=== PATIENT | male | born 1940 | race Caucasian/White ===

== ENCOUNTER 2016-11-08 06:16 | Observation (INO) | payer MEDICARE ==
--- NOTE | 2016-11-05 13:21 | HP ---
CC: Dr. Varela HISTORY AND PHYSICAL: DATE OF PLANNED ADMISSION/SURGERY: 11/08/16 HISTORY OF PRESENT ILLNESS: Mr. Rangel is a 75-year-old white male, who is admitted with prostate enlargement and bladder outlet obstruction for transurethral resection of the prostate. I have been following Mr. Rangel since 2004 because of progressive symptoms of bladder outlet obstruction. He could not tolerate alpha blockers because of headaches. He has been on finasteride since 2008. The patient has been having increasing obstructive voiding symptoms with nocturia about 3 times, frequency about every 2 hours with hesitancy, slow stream, intermittency, and having to strain to void. He felt his symptoms have been becoming worse and more bothersome and wanted to proceed with TURP. In preparation for the procedure, the patient had a cystoscopy, which showed a large obstructing prostate, diffuse bladder trabeculations, but no suspicious lesion seen. He then had urodynamic studies, which showed normal bladder capacity and high voiding detrusor pressure of 90 cm of water consistent with bladder outlet obstruction and good detrusor function. His uroflowmetry was slow and his post-void residual was 30 mL. In preparation for his procedure, the patient had a cardiac evaluation by Dr. Villasenor, who cleared him for the surgery. I am including a copy of his note. PAST MEDICAL HISTORY AND SYSTEM REVIEW: 1. He gives history of coronary artery disease and had placement of coronary stents about 4 years ago. 2. 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 The surgery was well tolerated. This reestablished good circulation to his lower extremities. He had been maintained on Plavix. He has done well with good surgical result. 3. The patient gives past history of chronic heavy smoking and he stopped several years ago. 4. He has chronic back pain and COPD. MEDICATIONS: He is maintained on the following medications: 1. Aspirin 81 mg daily. 2. Lipitor 40 mg daily. 3. Plavix 75 mg daily and that was discontinued 1 week prior to his admission. 4. Finasteride 5 mg daily. 5. Cozaar 50 mg daily. 6. Metoprolol 100 mg daily. 7. Protonix 40 mg daily. 8. Tramadol 50 mg every 4 to 6 hours as needed for pain. 9. Nitroglycerin sublingual 4 mg as needed for chest pain. ALLERGIES: The patient reports having intolerance to LISINOPRIL, SOMA, and CODEINE. He has also developed headaches to ALPHA BLOCKERS. PHYSICAL EXAMINATION GENERAL: A pleasant white male, who looks his age. VITAL SIGNS: Blood pressure 150/90. LUNGS: Clear. HEART: Regular and rhythmic. No murmurs. ABDOMEN: Soft. No masses, no tenderness, and no CVA tenderness. RECTAL: Done earlier shows an enlarged, but nonsuspicious prostate. IMPRESSION: 1. Prostate enlargement and symptomatic bladder outlet obstruction with progressive symptoms while on finasteride. 2. Coronary artery disease. 3. Peripheral vascular disease. 4. Chronic obstructive pulmonary disease secondary to chronic smoking. 5. Chronic back pain. 6. Gastroesophageal reflux disease. PLAN: Plan is for transurethral resection of the prostate. I had a long discussion with the patient and his regarding the above operation. I indicated that there is no absolute indication to perform the procedure considering the fact that he is not in retention. The patient, however, feels that he is symptomatic enough from his voiding that he wants to proceed with the procedure. The procedure was discussed in detail. Some of the potential complications including hematuria, urinary tract infections, urethral stricture, and a small incidence of urinary incontinence. All their questions were answered. [id number]/[facility] #: [id number] BIRD
[2016-11-08] MEDS ORDERED: cefTRIAXone VIAL(*) 1,000 MG in NS 0.9% 50 ML* 50 ML IVPB ONE (07:00)
[2016-11-08] MEDS ORDERED: cefTRIAXone(*) 2 GM ADDV.VIAL IVPB ONE ×2 (07:07→07:10)
[2016-11-08] MEDS ORDERED: Famotidine IV* 10 MG/ML 2 ML (20 mg) ONE (07:07)
[2016-11-08] MEDS ORDERED: Dexamethasone IV* 4 MG/ML 1 ML (4 MG) ONE (07:07)
[2016-11-08] MEDS ORDERED: Buffered Lidocaine 1% SYR 3ML* 3 ML/SYR SYRINGE ONE (07:07)
[2016-11-08] MEDS ORDERED: fentaNYL* 50 MCG/ML 2 ML VIAL (100 MCG VIAL) ONE ×3 (07:11→08:33)
[2016-11-08] MEDS ORDERED: Midazolam* 1 MG/ML 2 ML VIAL (2 MG) ONE ×2 (07:12→08:03)
[2016-11-08] MEDS ORDERED: Ketorolac INJ* 30 MG/ML 1 ML VIAL ONE (07:15)
[2016-11-08] MEDS ORDERED: Propofol* 10 MG/ML 20 ML BTL IV PUSH ONE (07:15)
[2016-11-08] MEDS ORDERED: Ondansetron INJ* 2 MG/ML VIAL ONE (07:15)
[2016-11-08] MEDS ORDERED: Lidocaine 2% MPF* 2 ML VIAL ONE (07:15)
[2016-11-08] MEDS ORDERED: Ondansetron INJ* 2 MG/ML VIAL IV PRN (07:27)
[2016-11-08] MEDS ORDERED: HYDROmorphone INJ* 1 MG/ML CARPUJECT SYRINGE IV PRN (07:27)
[2016-11-08] MEDS ORDERED: PROCHLORPERAZINE INJ 5 MG/ML 2 ML VIAL IV PRN (07:27)
[2016-11-08] MEDS ORDERED: fentaNYL* 50 MCG/ML 2 ML VIAL (100 MCG VIAL) IV PRN (07:27)
[2016-11-08] MEDS ORDERED: DiMENhydriNATE IV* 50 MG/ML VIAL IV PUSH PRN (07:27)
[2016-11-08] MEDS ORDERED: HYDROmorphone INJ* 1 MG/ML CARPUJECT SYRINGE ONE (08:46)
[2016-11-08] MEDS ORDERED: oxyCODONE/Acetamin 5/325 MG* TAB PO PRN (11:42)
[2016-11-08] MEDS ORDERED: Oxybutynin TAB* 5 MG PO PRN (11:43)
[2016-11-08] MEDS ORDERED: Lidocaine 2% JELLY* 6 ML JELLY TOPICAL PRN (11:44)
[2016-11-08] MEDS ORDERED: Nitroglycerin TAB 0.4 MG* 0.4 MG TAB SL PRN (11:46)
[2016-11-08] MEDS ORDERED: traMADol TAB* 50 MG PO PRN (11:47)
[2016-11-08] MEDS: Omeprazole CAP* 20 MG PO SCH (12:13)
[2016-11-08] MEDS: Losartan TAB* 25 MG PO SCH (12:14)
[2016-11-08] MEDS: Finasteride TAB* 5 MG PO SCH (12:14)
[2016-11-08] MEDS ORDERED: Atorvastatin* 40 MG TAB PO SCH (21:00)
--- NOTE | 2016-11-09 02:01 | OP ---
DATE OF OPERATION: 11/08/16 - ROOM #349 DATE OF : 40 SURGEON: Dr. Fraire. ANESTHESIOLOGIST: Dr. Luis Sepulveda. ANESTHESIA: General. PRE-OP DIAGNOSES: 1. Benign prostatic hyperplasia. 2. Bladder outlet obstruction. POST-OP DIAGNOSES: 1. Benign prostatic hyperplasia. 2. Bladder outlet obstruction. 3. Prostate calculi. OPERATIVE PROCEDURES: 1. Cystoscopy. 2. Transurethral resection of the prostate. INDICATION FOR PROCEDURE: Mr. Rangel is a 75-year-old white male who had long history of bladder outlet obstruction and prostate enlargement and who has been maintained on finasteride. He could not tolerate alpha-blockers because of headaches. Recently, his voiding symptoms have gotten significantly more bothersome. Cystoscopy showed an enlarged obstructing prostate and urodynamic studies showed a high voiding detrusor pressure. Because of the above history and findings and the incomplete response to medical treatment, TURP was advised and accepted. PATHOLOGY: At cystoscopy, the penile and bulbar urethra looked normal. The prostatic urethra measured 3 cm in length and there was significant obstruction by trilobar hyperplasia of the prostate. The examination of the bladder showed normal ureteral orifices. There were no suspicious bladder lesions seen. There was moderate diffuse trabeculations. No bladder calculi and no diverticula were noted. The prostate adenoma was only slightly vascular. There were multiple calculi noted in the posterior prostate adenoma. DESCRIPTION OF PROCEDURE: After successful general anesthesia, the patient was placed in the dorsal lithotomy position and was prepped and draped in the usual manner. Cystoscopy was performed. The bladder was carefully inspected and the above findings were noted. The resectoscope was then introduced inside the bladder after dilating the meatus with [place] dilators. Mannitol-sorbitol solution was used for irrigation and the inflow and outflow were adjusted to avoid over distention of the bladder. The prostate adenoma was resected between 5 o'clock and 7 o'clock. The resection was continued to the level of the verumontanum that allowed the visualization of the bladder neck at the level of the veru. Resection of the left lateral lobe was then performed starting at 5 o' clock and proceeding anteriorly. The right lobe was resected next. The apical tissue and the anterior tissue were resected last. The bleeders were electrocoagulated and controlled. The limits of the resection were the bladder neck proximally, the veru distally, and the capsule circumferentially. The bladder was then thoroughly irrigated and all the prostate chips were removed. All significant bleeding was controlled. At the completion of the resection, the prostatic urethra was wide open and there was no residual obstructing tissue. The external sphincter, the verumontanum, the capsule, the bladder neck, the trigone and the orifices were all intact. There was a small open sinus at 12 o' clock distally. After making sure there were no residual prostate chips and the hemostasis was adequate, the resectoscope was removed and a size 22-Thai Lucio catheter was placed inside the bladder and the balloon inflated with 30 cc of water. The catheter was then placed under gentle traction and taped to the right thigh of the patient. Irrigation yielded clear returns. The patient tolerated the procedure well and left the operating room in good condition. The blood loss was estimated at about 50 cc. The specimen was prostate chips. CC: Dr. Varela * [id number]/[facility] #: [id number] MTDD
[2016-11-09] MEDS ORDERED: cefTRIAXone VIAL(*) 1,000 MG in NS 0.9% 50 ML* 50 ML IVPB ONE (07:00)
[2016-11-09 08:05] VITALS: BP 133/52
[2016-11-09] MEDS ORDERED: Metoprolol Succinate XL TAB* 100 MG PO SCH (09:00)
[2016-11-09] MEDS: Finasteride TAB* 5 MG PO SCH (09:19)
[2016-11-09] MEDS: Losartan TAB* 25 MG PO SCH (09:19)
[2016-11-09] MEDS: Omeprazole CAP* 20 MG PO SCH (09:19)
--- NOTE | 2016-11-09 20:15 | DS ---
DISCHARGE SUMMARY: DATE OF ADMISSION: 11/08/16 DATE OF DISCHARGE: 11/09/16 FINAL DIAGNOSES: 1. Benign prostatic hyperplasia. 2. Bladder outlet obstruction. 3. Coronary artery disease. 4. Peripheral vascular disease. 5. Chronic obstructive pulmonary disease. OPERATION: Transurethral resection of the prostate on 11/08/16. HISTORY: Mr. Rangel is a 75-year-old male who had a long history of bladder outlet obstruction who has been maintained on finasteride. He could not tolerate alpha blockers because of side effects. His voiding symptoms have gotten worse namely frequency, nocturia, and slow stream. Cystoscopy showed an obstructing prostate and urodynamic studies showed high voiding pressure. Because of the above history and the incomplete response to medical treatment, TURP was advised and accepted. PAST MEDICAL HISTORY AND SYSTEM REVIEW: He has a history of coronary artery disease and had placement of coronary stents about 4 years ago. 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 He gives past history of chronic smoking with COPD; however, he had stopped smoking several years ago. MEDICATIONS: The patient is maintained on the following medications: 1. Aspirin 81 mg daily. 2. Lipitor 40 mg daily. 3. Plavix 75 mg daily; it was discontinued 1 week prior to admission. 4. Finasteride 5 mg daily. 5. Cozaar 50 mg daily. 6. Metoprolol 100 mg daily. 7. Protonix 40 mg daily. 8. Tramadol 50 mg every 4 to 6 hours as needed for back pain. ALLERGIES: The patient reports having intolerance to lisinopril, Soma, and codeine. He had developed headaches to alpha blockers. PHYSICAL EXAMINATION: Preoperative physical examination showed blood pressure 150/90, the rest of this examination was within normal. Rectal exam showed an enlarged, but nonsuspicious prostate. LABORATORY DATA: Preoperative lab workup was within normal. COURSE IN HOSPITAL: The patient was seen preoperatively by Dr. Villasenor, his laboratory specialist, and cleared for surgery. On the morning of his admission, he underwent an uncomplicated transurethral resection of the prostate under general anesthesia. He did very well postoperatively. His urine remained clear. He was discharged home the next morning on Lucio catheter drainage. The plan is to continue on all his preoperative medications with the exception of the Plavix for which he should be off it for an extra 2 weeks. Pathology on the resected prostate tissue was benign. He will be seen in the office 1 week postoperatively for Lucio catheter removal. CC: Dr. Varela* [id number]/[facility] #: [id number] MTDD
== END 2016-11-09 11:00 | disposition home or self-care (01) ==
LOC: OR 06:16 → SSU 11:18
PROVIDERS: ADMIT Urology; ATTEND Urology
PROC: 0TJB8ZZ Inspection of Bladder, Via Natural or Artificial Opening Endoscopic (ICD-10-PCS; 2016-11-08)
PROC: 0VT08ZZ Resection of Prostate, Via Natural or Artificial Opening Endoscopic (ICD-10-PCS; principal; 2016-11-08 07:45)
DX: N40.1 Benign prostatic hyperplasia with lower urinary tract symptoms (principal); N13.8 Other obstructive and reflux uropathy; I25.10 Atherosclerotic heart disease of native coronary artery without angina pectoris; Z95.5 Presence of coronary angioplasty implant and graft; I73.9 Peripheral vascular disease, unspecified; J44.9 Chronic obstructive pulmonary disease, unspecified; K21.9 Gastro-esophageal reflux disease without esophagitis; G89.29 Other chronic pain; Z79.02 Long term (current) use of antithrombotics/antiplatelets; Z79.82 Long term (current) use of aspirin; Z79.899 Other long term (current) drug therapy; Z87.891 Personal history of nicotine dependence; Z88.8 Allergy status to other drugs, medicaments and biological substances; Z88.5 Allergy status to narcotic agent
CPT/HCPCS: 87086; 88305; 96361; 96365; A9270-GY; G0378; J0696; J1100; J1170; J1885; J2250; J2405; J2704; J3010

== ENCOUNTER 2018-04-06 07:23 | Emergency (ER) | payer MEDICARE ==
--- OUTSIDE RECORDS SUMMARY | 2018-04-06 07:30 | XMS REPORT ---
:1940 External Reference #:[id number] Author Organization [facility] Address [address] [address] Phone [phone] Care Team Providers Name Role Phone Ian Meadows III, MD Primary Care Physician Unavailable Payers Type Date Identification Numbers Payment Subscriber Provider Health Maintenance Effective: Policy Number: Medicare Robin Beltran (O) 10/31/2012 [id number] o Group Number: [id number] [address] [address] PayID: [id number] [place] [id number] Problems Date Description Provider Status Onset: 04/19/2014 Dyspnea Aba Villasenor M.D., Active FACJose Maria, JOEY Onset: 04/19/2014 Coronary atherosclerosis Aba Villasenor M.D., Active JAMIE, JOEY Onset: 05/15/2014 Chronic ischemic heart disease Aba Villasenor M.D., Active JAMIE, JOEY Onset: 05/15/2014 Difficulty breathing Aba Villasenor M.D., Active JAMIE, FASIBAN Onset: 07/03/2015 Dyssomnia Yanira Wise MD Active Onset: 09/05/2015 Obstructive sleep apnea syndrome Yanira Wise MD Active Onset: 09/05/2015 Disorder of lung Yanira Wise MD Active Onset: 09/05/2015 Emphysema, unspecified Yanira Wise MD Active Onset: 06/15/2017 Peripheral vascular disease Ian Meadows M.D. Active Onset: 06/15/2017 Essential hypertension Ian Meadows M.D. Active Onset: 06/15/2017 Mixed hyperlipidemia Ian Meadows M.D. Active Onset: 06/15/2017 Chronic obstructive lung disease Ian Meadows M.D. Active Onset: 10/10/2017 Thoracic aortic ectasia Aba Villasenor M.D., Active FACC, FASNC Family History Date Family Member(s) Problem(s) Comments Father due to In MVA () Mother possible AD Mother due to at 81 Unknown () Social History Type Date Description Comments Marital Status Lives With Occupation Retired Cigarette Use Former Cigarette Smoker ETOH Use Rarely consumes wine ETOH Use Rarely consumes beer Smoking Patient is a former smoker quit in 2011;heavist was 2 ppd and towards end was 1 ppd q 3wks; started age 17 Recreational Drug Use Denies Drug Use Daily Caffeine Consumes on average 3 cups of regular coffee per day Exercise Type/Frequency Does not exercise Allergies, Adverse Reactions, Alerts Date Description Reaction Status Severity Comments 04/19/2014 Soma active Moderate overmedicates patient 06/03/2015 Codeine Dry Heaves and general active Moderate tylenol with Codeine malaise 06/28/2016 Lisinopril active hoarse throat 10/05/2016 Oxycodone upset stomach active Medications Medication Date Status Form Strength Qnty SIG Indications Ordering Provider Losartan 05/06/ Active Tablets 50mg 30tabs 1 by Ian Caballero Potassium 2016 mouth Dori, every day M.D. Nitrostat 07/16/ Active Tablets 0.4mg 1bottl one sl Aba Martinez 2012 Sub e q5min up Hamilton, to 3 M.D., doses as FACC, needed, FASNC if no relief after 3 call 911 Metoprolol 04/16/ Active Tablets ER 100mg 90tabs 1 by Aba Martinez Succinate ER 2012 24HR mouth Villasenor, every day M.D., FACC, FASNC Atorvastatin / Active Tablets 40mg 90tabs 1 by Ian Caballero Calcium 0000 mouth Dori, every day M.D. Aspir-81 / Active Tablets DR 81mg 1 by Unknown 0000 mouth every day Protonix / Active Tablets DR 40mg 180tab 1 by Ian Caballero 0000 s mouth Dori, twice a M.D. day Tramadol HCL / Active Tablets 50mg 60tabs 1-2 Ian Caballero 0000 tablets Dori, every 6 M.D. hours as needed Aleve 0000/ Active Capsules 220mg 1 tab po Unknown 0000 qnoon and 1 tab po as needed Nitrolingual 07/13/ Hx Solution 0.4mg/Spra 1units prn q `5 Aba Martinez Pumpspray 2012 - y min chest Hamilton, 07/16/ pain; M.D., 2012 call 911 FACC, if chest FASNC pain after 3 sprays Plavix 00/ Hx Tablets 75mg 90tabs 1 by Unknown 0000 - mouth 06/06/ every day 2016 Lisinopril 00/ Hx Tablets 10mg 90tabs 1 by Unknown 0000 - mouth 05/03/ every day 2015 Finasteride 00/ Hx Tablets 5mg 1 by Unknown 0000 - mouth 01/24/ every day 2016 Vesicare 00/ Hx Tablets 5mg 1 by Unknown 0000 - mouth 01/23/ every day 2018 Acetaminophen / Hx Capsules 500mg 1-2 caps Unknown Extra Strength 0000 - by mouth 09/29/ every 8 2017 hours as needed for pain. do not exceed 3 grams (6 tabs) in a 24 hour period Advil / Hx Tablets 200mg 1 tab po Unknown 0000 - qnoon and tab as 2018 needed Aleve 00/ Hx Tablets 220mg as needed Unknown 0000 - 2016 Medications Administered in Office Medication Date Status Form Strength Qnty SIG Indications Ordering Provider Inj, Administered Injection Aba Martinez Regadenoson, 016 Villasenor, 0.1 MG M.D., FACC, FASNC Technetium TC Administered Injection Aba Juan 99M 016 Francisco Villasenor M.D., FACC, Per Unit Dose FASNC Up To 40 Millicuries Inj, Administered Injection Aba Martinez Regadenoson, 014 Villasenor, 0.1 MG M.D., FACC, FASNC Technetium TC Administered Injection Aba Martinez 99M 014 Francisco Villasenor M.D., FACC, Per Unit Dose FASNC Up To 40 Millicuries Immunizations CPT Code Status Date Vaccine Lot # [id number] Given 08/31/2017 Influenza Virus Vaccine, Quadrivalent, Split, [id number] Preservative Free [id number] Given 06/15/2017 Pneumococcal Conjugate Vaccine 13 Valent For [id number] Intramuscular Use Q2037 Given 11/03/2015 Fluvirin Im 3Yrs And Older 42430 Given 09/05/2015 Influenza Virus 3Yrs & Over Vital Signs Date Vital Result Comment 03/31/2018 Height 62.5 inches 5'2.50" Weight 163.00 lb Heart Rate 70 /min BP Systolic Sitting 130 mmHg BP Diastolic Sitting 70 mmHg Respiratory Rate 16 /min BMI (Body Mass Index) 29.3 kg/m2 03/20/2018 Height 62.5 inches 5'2.50" Weight 168.00 lb Heart Rate 76 /min BP Systolic 136 mmHg BP Diastolic 74 mmHg Respiratory Rate 16 /min Body Temperature 97.4 F BMI (Body Mass Index) 30.2 kg/m2 03/13/2018 Weight 163.00 lb Heart Rate 74 /min BP Systolic Sitting 120 mmHg BP Diastolic Sitting 80 mmHg O2 % BldC Oximetry 98 % 02/03/2018 Weight 165.00 lb Heart Rate 60 /min BP Systolic Sitting 128 mmHg BP Diastolic Sitting 60 mmHg O2 % BldC Oximetry 97 % 01/24/2018 Height 62.5 inches 5'2.50" Weight 163.25 lb Heart Rate 54 /min BP Systolic Sitting 122 mmHg Lue regular cuff BP Diastolic Sitting 82 mmHg Lue regular cuff Respiratory Rate 16 /min O2 % BldC Oximetry 95 % BMI (Body Mass Index) 29.4 kg/m2 10/10/2017 Height 62.5 inches 5'2.50" Weight 166.00 lb No shoes Heart Rate 68 /min BP Systolic Sitting 90 mmHg Rue reg cuff BP Diastolic Sitting 52 mmHg Rue reg cuff BP Systolic Standing 104 mmHg Rue reg cuff BP Diastolic Standing 62 mmHg Rue reg cuff Respiratory Rate 15 /min BMI (Body Mass Index) 29.9 kg/m2 Ejection Fraction 55-60% 10/04/2017-echo 09/30/2017 Height 64 inches 5'4" Weight 169.12 lb Heart Rate 60 /min BP Systolic 128 mmHg BP Diastolic 68 mmHg BMI (Body Mass Index) 29.0 kg/m2 07/27/2017 Height 64 inches 5'4" Weight 163.50 lb With shoes Heart Rate 58 /min BP Systolic Sitting 148 mmHg Rue reg cuff BP Diastolic Sitting 76 mmHg Rue reg cuff Respiratory Rate 14 /min O2 % BldC Oximetry 97 % On Ra BMI (Body Mass Index) 28.1 kg/m2 07/07/2017 Height 64 inches 5'4" Weight 155.38 lb Heart Rate 48 /min BP Systolic Sitting 130 mmHg BP Diastolic Sitting 80 mmHg Respiratory Rate 16 /min Pain Level 0 O2 % BldC Oximetry 92 % BMI (Body Mass Index) 26.7 kg/m2 06/15/2017 Height 64 inches 5'4" Weight 165.00 lb Heart Rate 60 /min BP Systolic Sitting 140 mmHg BP Diastolic Sitting 74 mmHg O2 % BldC Oximetry 96 % BMI (Body Mass Index) 28.3 kg/m2 06/07/2017 Height 64 inches 5'4" Weight 166.00 lb Heart Rate 68 /min BP Systolic Sitting 162 mmHg BP Diastolic Sitting 88 mmHg Respiratory Rate 16 /min O2 % BldC Oximetry 98 % room air BMI (Body Mass Index) 28.5 kg/m2 01/25/2017 Height 64 inches 5'4" Weight 160.00 lb Heart Rate 52 /min BP Systolic Sitting 126 mmHg BP Diastolic Sitting 68 mmHg Respiratory Rate 14 /min BMI (Body Mass Index) 27.5 kg/m2 11/04/2016 Height 64 inches 5'4" Weight 160.00 lb Heart Rate 65 /min BP Systolic Sitting 122 mmHg BP Diastolic Sitting 62 mmHg Respiratory Rate 16 /min O2 % BldC Oximetry 96 % BMI (Body Mass Index) 27.5 kg/m2 10/05/2016 Height 64 inches 5'4" Weight 159.00 lb with shoes Heart Rate 66 /min BP Systolic Sitting 116 mmHg Rue reg cuff BP Diastolic Sitting 64 mmHg Rue reg cuff BP Systolic Standing 122 mmHg Rue reg cuff BP Diastolic Standing 68 mmHg Rue reg cuff Respiratory Rate 17 /min BMI (Body Mass Index) 27.3 kg/m2 Ejection Fraction 55-60% 09/28/2016 06/28/2016 Height 64 inches 5'4" Weight 160.00 lb w/ shoes Heart Rate 62 /min reg BP Systolic Sitting 150 mmHg Lue, reg cuff BP Diastolic Sitting 76 mmHg Lue, reg cuff BP Systolic Standing 154 mmHg Lue BP Diastolic Standing 76 mmHg Lue Respiratory Rate 16 /min BMI (Body Mass Index) 27.5 kg/m2 Ejection Fraction 55-60% as of 05/31/16 echo 05/04/2016 Height 64 inches 5'4" Weight 160.00 lb Heart Rate 60 /min BP Systolic 124 mmHg BP Diastolic 74 mmHg Respiratory Rate 14 /min O2 % BldC Oximetry 96 % BMI (Body Mass Index) 27.5 kg/m2 11/03/2015 Height 64 inches 5'4" Weight 160.00 lb Heart Rate 65 /min BP Systolic Sitting 134 mmHg BP Diastolic Sitting 72 mmHg Respiratory Rate 18 /min O2 % BldC Oximetry 97 % BMI (Body Mass Index) 27.5 kg/m2 09/05/2015 Heart Rate 72 /min BP Systolic Sitting 132 mmHg BP Diastolic Sitting 74 mmHg Respiratory Rate 16 /min O2 % BldC Oximetry 97 % 07/03/2015 Height 64 inches 5'4" Weight 168.00 lb Heart Rate 66 /min BP Systolic 138 mmHg BP Diastolic 78 mmHg Respiratory Rate 14 /min Body Temperature 98.6 F O2 % BldC Oximetry 98 % BMI (Body Mass Index) 28.8 kg/m2 Neck Circumference in inches 17 07/03/2015 BP Systolic 134 mmHg BP Diastolic 86 mmHg 06/03/2015 Height 64 inches 5'4" Weight 155.00 lb w/o shoes Heart Rate 76 /min irreg BP Systolic Sitting 140 mmHg Rue, reg cuff BP Diastolic Sitting 76 mmHg Rue, reg cuff BP Systolic Standing 136 mmHg Rue BP Diastolic Standing 80 mmHg Rue Respiratory Rate 18 /min BMI (Body Mass Index) 26.6 kg/m2 Ejection Fraction 55-60% as of 05/19/15 echo 05/15/2014 Height 64 inches 5'4" Weight 157.00 lb Heart Rate 64 /min BP Systolic Sitting 120 mmHg LA reg cuff BP Diastolic Sitting 62 mmHg LA reg cuff BP Systolic Standing 104 mmHg LA BP Diastolic Standing 60 mmHg LA Respiratory Rate 16 /min BMI (Body Mass Index) 26.9 kg/m2 04/19/2014 Height 64 inches 5'4" Weight 159.75 lb w/shoes Heart Rate 64 /min BP Systolic Sitting 108 mmHg LA reg cuff BP Diastolic Sitting 58 mmHg LA reg cuff BP Systolic Standing 112 mmHg LA reg cuff BP Diastolic Standing 60 mmHg LA reg cuff Respiratory Rate 20 /min BMI (Body Mass Index) 27.4 kg/m2 Results Test Date Test Result H/L Range Note CBC Auto Diff 02/06/2018 White Blood Count 4.8 10^3/uL 3.5-10.8 Red Blood Count 3.31 10^6/uL Low 4.0-5.4 Hemoglobin 11.7 g/dL Low 14.0-18.0 Hematocrit 33 % Low 42-52 Mean Corpuscular Volume 101 fL High 80-94 Mean Corpuscular Hemoglobin 35 pg High 27-31 Mean Corpuscular HGB Conc 35 g/dL 31-36 Red Cell Distribution Width 14 % 10.5-15 Platelet Count 114 10^3/uL Low 150-450 Mean Platelet Volume 8.4 um3 7.4-10.4 Abs Neutrophils 3.1 10^3/uL 1.5-7.7 Abs Lymphocytes 1.3 10^3/uL 1.0-4.8 Abs Monocytes 0.4 10^3/uL 0-0.8 Abs Eosinophils 0 10^3/uL 0-0.6 Abs Basophils 0 10^3/uL 0-0.2 Abs Nucleated RBC 0 10^3/uL Granulocyte % 64.5 % 38-83 Lymphocyte % 26.6 % 25-47 Monocyte % 7.8 % High 0-7 Eosinophil % 0.6 % 0-6 Basophil % 0.5 % 0-2 Nucleated Red Blood Cells % 0 Laboratory test finding 02/06/2018 C Reactive Protein < 1.00 mg/L &lt ; 5.00 1 Erythrocyte Sed Rate 28 mm/Hr 0-40 Syphillis Igg W/Reflex RPR Nonreactive Nonreactive 2 TSH (Thyroid Stim Horm) 2.57 mcIU/mL 0.34-5.60 3 Vitamin B12 And Folate Serum 02/06/2018 Vitamin B12 700 pg/mL 180-914 4 Folic Acid (Folate) 14.08 ng/mL >3.99 5 Comp Metabolic Panel 02/06/2018 Sodium 140 mmol/L 139-145 Potassium 4.6 mmol/L 3.5-5.0 Chloride 106 mmol/L 101-111 Co2 Carbon Dioxide 29 mmol/L 22-32 Anion Gap 5 mmol/L 2-11 Glucose 95 mg/dL 70-100 Blood Urea Nitrogen 29 mg/dL High 6-24 Creatinine 1.65 mg/dL High 0.67-1.17 BUN/Creatinine Ratio 17.6 8-20 Calcium 8.7 mg/dL 8.6-10.3 Total Protein 6.8 g/dL 6.4-8.9 Albumin 4.1 g/dL 3.2-5.2 Globulin 2.7 g/dL 2-4 Albumin/Globulin Ratio 1.5 1-3 Total Bilirubin 0.50 mg/dL 0.2-1.0 Alkaline Phosphatase 76 U/L 34-104 Alt 18 U/L 7-52 Ast 18 U/L 13-39 Egfr Non- 40.7 >60 Egfr 52.3 >60 6 Lipid Profile (Trig/Chol/HDL) 02/06/2018 Triglycerides 137 mg/dL 7 Cholesterol 117 mg/dL 8 HDL Cholesterol 29.3 mg/dL 9 LDL Cholesterol 60 mg/dL 10 Laboratory test finding 02/06/2018 PSA Diagnostic 0.697 ng/mL 0-4.0 CBC Auto Diff 06/02/2015 White Blood Count 6.1 10^3/uL 4.8-10.8 Red Blood Count 3.91 10^6/uL Low 4.0-5.4 Hemoglobin 13.3 g/dL Low 14.0-18.0 Hematocrit 39 % Low 42-52 Mean Corpuscular Volume 100 fL High 80-94 Mean Corpuscular Hemoglobin 34 pg High 27-31 Mean Corpuscular HGB Conc 34 g/dL 31-36 Red Cell Distribution Width 14 % 10.5-15 Platelet Count 125 10^3/uL Low 150-450 Mean Platelet Volume 8 um3 7.4-10.4 Abs Neutrophils 4.1 10^3/uL 1.5-7.7 Abs Lymphocytes 1.5 10^3/uL 1.0-4.8 Abs Monocytes 0.5 10^3/uL 0-0.8 Abs Eosinophils 0.1 10^3/uL 0-0.6 Abs Basophils 0 10^3/uL 0-0.2 Abs Nucleated RBC 0 10^3/uL Granulocyte % 66.3 % 38-83 Lymphocyte % 23.7 % Low 25-47 Monocyte % 8.7 % 1-9 Eosinophil % 0.9 % 0-6 Basophil % 0.4 % 0-2 Nucleated Red Blood Cells % 0 Comp Metabolic Panel 06/02/2015 Sodium 136 mmol/L 133-145 Potassium 4.3 mmol/L 3.5-5.0 Chloride 104 mmol/L 101-111 Co2 Carbon Dioxide 25 mmol/L 22-32 Anion Gap 7 mmol/L 2-11 Glucose 102 mg/dL High 70-100 Blood Urea Nitrogen 29 mg/dL High 6-24 Creatinine 1.50 mg/dL High 0.67-1.17 BUN/Creatinine Ratio 19.3 8-20 Calcium 9.1 mg/dL 8.6-10.3 Total Protein 7.0 g/dL 6.4-8.9 Albumin 4.3 g/dL 3.2-5.2 Globulin 2.7 g/dL 2-4 Albumin/Globulin Ratio 1.6 1-3 Total Bilirubin 0.60 mg/dL 0.2-1.0 Alkaline Phosphatase 61 U/L 34-104 Alt 13 U/L 7-52 Ast 18 U/L 13-39 Egfr Non- 45.7 >60 Egfr 58.8 >60 11 Lipid Profile (Trig/Chol/HDL) 06/02/2015 Triglycerides 132 mg/dL 12 Cholesterol 111 mg/dL 13 HDL Cholesterol 28.1 mg/dL 14 LDL Cholesterol 57 mg/dL 15 Laboratory test finding 12/28/2013 Ast 17 U/L 13-39 16 Lipid Profile (Trig/Chol/HDL) 12/28/2013 Triglycerides 103 mg/dL 17 Cholesterol 111 mg/dL 18 HDL Cholesterol 30.2 mg/dL 19 LDL Cholesterol 60 mg/dL 20 1 Acute inflammation: >10.00 2 Warning: A positive result is not useful for establishing a diagnosis of syphilis. In most situations, such a result may reflect a prior treated infection; a negative result can exclude a diagnosis of syphilis except for incubating or early primary disease. 3 FASTING 4 Normal Range 180 to 914 Indeterminate Range 145 to 180 Deficient Range <145 5 FASTING 6 Because ethnic data is not always readily available, this report includes an eGFR for both -Americans and non- Americans. The National Kidney Disease Education Program (NKDEP) does not endorse the use of the MDRD equation for patients that are not between the ages of 18 and 70, are , have extremes of body size, muscle mass, or nutritional status, or are non- or non-. According to the National Kidney Foundation, irrespective of diagnosis, the stage of the disease is based on the level of kidney function: Stage Description GFR(mL/min/1.73 m(2)) 1 Kidney damage with normal or decreased GFR 90 2 Kidney damage with mild decrease in GFR 60-89 3 Moderate decrease in GFR 30-59 4 Severe decrease in GFR 15-29 5 Kidney failure <15 (or dialysis) 7 Desirable: <150 Borderline High: 150-199 High: 200-499 Very High: >500 8 Desirable: <200 Borderline High: 200-239 High: >239 9 Low: <40 Desirable: 40-60 High: >60 10 Desirable: <100 Near Optimal: 100-129 Borderline High: 130-159 High: 160-189 Very High: >189 11 Because ethnic data is not always readily available, this report includes an eGFR for both -Americans and non- Americans. The National Kidney Disease Education Program (NKDEP) does not endorse the use of the MDRD equation for patients that are not between the ages of 18 and 70, are , have extremes of body size, muscle mass, or nutritional status, or are non- or non-. According to the National Kidney Foundation, irrespective of diagnosis, the stage of the disease is based on the level of kidney function: Stage Description GFR(mL/min/1.73 m(2)) 1 Kidney damage with normal or decreased GFR 90 2 Kidney damage with mild decrease in GFR 60-89 3 Moderate decrease in GFR 30-59 4 Severe decrease in GFR 15-29 5 Kidney failure <15 (or dialysis) 12 Desirable <150 Borderline high 150-199 High 200-499 Very High >500 13 Desirable <200 Borderline high 200-239 High >239 14 Low <40 Desirable: 40-60 High: >60 15 Desirable: <100 mg/dL Near Optimal: 100-129 mg/dL Borderline High: 130-159 mg/dL High: 160-189 mg/dL Very High: >189 mg/dL 16 FASTING 17 Desirable <150 Borderline high 150-199 High 200-499 Very High >500 18 Desirable <200 Borderline high 200-239 High >239 19 Low <40 Desirable: 40-60 High: >60 20 Desirable <100 Near Optimal 100-129 Borderline high 130-159 High 160-189 Very High >189 Procedures Date CPT Code Description Status 10/10/2017 30624 EKG Tracing & Interpretation Completed 10/04/2017 47076 ECHO Transthoracic, Real-Time 2D With Doppler And Color Completed Flow 10/04/2017 88041 ECHO Transthoracic, Real-Time 2D With Doppler And Color Completed Flow 10/05/2016 99779 EKG Tracing & Interpretation Completed 09/29/2016 99801 Stress Test Completed 09/29/2016 91668 Myocardial Perfusion Imaging Tomographic (Spect) Completed Multiple Studies 09/28/2016 13495 ECHO Transthoracic, Real-Time 2D With Doppler And Color Completed Flow 06/28/2016 95085 EKG Tracing & Interpretation Completed 05/31/2016 07064 ECHO Transthoracic, Real-Time 2D With Doppler And Color Completed Flow 09/04/2015 52401 Pulmonary Stress Test Simple Completed 08/17/2015 48553 Polysomnography Sleep Staging 4+ Parameters W/Cpap Completed 06/03/2015 72630 EKG Tracing & Interpretation Completed 05/19/2015 90905 ECHO Transthoracic, Real-Time 2D With Doppler And Color Completed Flow 05/13/2014 55398 Stress Test Completed 05/13/2014 26742 Myocardial Perfusion Imaging Tomographic (Spect) Completed Multiple Studies 04/26/2014 96303 ECHO Transthoracic, Real-Time 2D With Doppler And Color Completed Flow 04/26/2014 33727 ECHO Transthoracic, Real-Time 2D With Doppler And Color Completed Flow 04/19/2014 17144 EKG Tracing & Interpretation Completed 07/06/2013 68794 ECHO Transthoracic, Real-Time 2D With Doppler And Color Completed Flow 12/25/2012 69545 EKG Tracing & Interpretation Completed 08/19/2009 Colonoscopy Completed 08/29/2008 09099 EKG, Interpretation Only Completed 08/29/2008 94661 EKG, Interpretation Only Completed 08/10/2005 Colonoscopy Completed Encounters Type Date Location Provider CPT E/M Dx Office Visit 03/20/2018 [facility] [place] [address] K43.2 11:30a [employer] Office Visit 02/03/2018 [facility] Ian Meadows, 98316 G31.84 10:20a Ceferino Whitaker M.D. I10 E78.2 R47.01 Office Visit 01/24/2018 10:30a [facility] [address] J44.9 [facility] G47.33 J98.4 E66.09 Office Visit 10/10/2017 9:45a [facility] Aba Martinez 39788 I77.810 Theresa Villasenor, [facility] Office Visit 09/30/2017 2:30p [facility] Orion Alston 97858 G31.84 Theresa Bowman G47.33 Office Visit 07/27/2017 9:45a [facility] Yanira Wise MD G9695 G47.33 Services [facility] [employer] J44.9 J98.4 E66.01 Z68.28 Office Visit 07/07/2017 10:30a [facility] Sleep Yanira Wise MD G9695 G47.33 Services Of [employer] J44.9 E66.09 J98.4 Office Visit 06/15/2017 2:20p [facility] Ian Meadows, 74764 I25.10 - Sherman Cardenas I73.9 I10 E78.2 J44.9 G47.33 Z85.038 K21.9 Z23 Office Visit 06/07/2017 1:45p [facility] [place] [address] G47.33 [facility] [employer] J44.9 Office Visit 01/25/2017 3:00p [facility] Orion Bowman, 81617 G31.84 Services Of Derian Cardenas I65.23 Office Visit 11/04/2016 10:00a [facility] [place] [address] J43.9 [facility] G47.33 J98.4 Office Visit 10/05/2016 1:30p [facility] Aba Villasenor, 61309 I25.10 Derian Cardenas, FAC, [facility] Office Visit 06/28/2016 10:30a [facility] Aba Villasenor, 61343 I25.9 Derian Cardenas, FAC, [facility] Office Visit 05/04/2016 10:00a [facility] [place] [address] G47.33 Services [facility] [employer] J43.9 Office Visit 11/03/2015 10:00a [facility] [place] [address] G47.33 [facility] R06.02 Office Visit 09/05/2015 9:30a [facility] [address] G47.33 [facility] J43.9 J98.4 Office Visit 07/03/2015 8:45a [facility] [address] 786.05 [facility] 780.57 Office Visit 06/03/2015 1:00p [facility] Aba Villasenor, 19229 414.00 Derian Cardenas, FACC, FASNC Office Visit 05/15/2014 12:30p [facility] Aba Martinez Villasenor, 69382 414.9 M.D., FACC, FASKS 786.09 443.9 Office Visit 04/19/2014 11:30a [facility] Aba Martinez Villasenor, 35278 414.9 M.D., FACC, FASNC Office Visit 07/13/2013 12:00p [facility] Aba Martinez Villasenor, 01943 414.9 Derian Cardenas, FACC, FASKS Office Visit 12/25/2012 10:15a [facility] Aba Villasenor, 25012 414.9 Derian Cardenas, FACC, FASKS Plan of Care Future Appointment(s):10/06/2018 2:45 pm - Orion Bowman M.D. at [facility]/21/2018 9:00 am - Aba Villasenor M.D., FACC, FASNC at [facility]04/18/2018 10:45 am - Yanira Wise MD at [facility]03/31/2018 - Orion Bowman M.D.G31.84 Mild cognitive impairment, so statedFollow up:6 monthsRecommendations:Do not take Alleve or other NSAID's with your aspirin
--- OUTSIDE RECORDS SUMMARY | 2018-04-06 07:31 | XMS REPORT ---
:1940 External Reference #:[id number] Author Organization [employer] Address [address] [address] Phone [phone] Care Team Providers Name Role Phone Onel Mcginnis DO Care Team Information Scientific Database Curator Unavailable Ian Meadows III, MD Primary Care Physician Unavailable Payers Type Date Identification Numbers Payment Subscriber Provider Health Maintenance Effective: Policy Number: Medicare Robin Rangel [facility] ([facility]) 10/31/2012 [id number] o Group Number: [id number] [address] [address] PayID: [id number] [place] [address] Problems Date Description Provider Status Onset: 04/19/2014 Dyspnea Aba Villasenor M.D., Active JOEY AYALA Onset: 04/19/2014 Coronary atherosclerosis Aba Villasenor M.D., Active JOEY AYALA Onset: 05/15/2014 Chronic ischemic heart disease Aba Villasenor M.D., Active JOEY AYALA Onset: 05/15/2014 Difficulty breathing Aba Villasenor M.D., Active JAMIE, JOEY Onset: 07/03/2015 Dyssomnia Yanira Wise MD Active [...] / Active Tablets 50mg 60tabs 1-2 Ian Ada 0000 tablets Dori, every 6 M.D. hours as needed Advil 0000/ Active Tablets 200mg as needed Unknown 0000 Nitrolingual 07/13/ Hx Solution 0.4mg/Spra 1units prn q `5 Aba Martinez Pumpspray 2012 - y min chest Hamilton, 07/16/ pain; MMartin, 2013 call 911 FACC, if chest FASNC pain after 3 sprays Plavix / Hx Tablets 75mg 90tabs 1 by Unknown 0000 - mouth 06/06/ every day 2016 Lisinopril 00/ Hx Tablets 10mg 90tabs 1 by Unknown 0000 - mouth 05/03/ every day 2015 Finasteride / Hx Tablets 5mg 1 by Unknown 0000 - mouth 01/24/ every day 2016 Vesicare / Hx Tablets 5mg 1 by Unknown 0000 - mouth 01/23/ every day 2017 Acetaminophen / Hx Capsules 500mg 1-2 caps Unknown Extra Strength 0000 - by mouth 09/29/ every 8 2017 hours as needed for pain. do not exceed 3 grams (6 tabs) in a 24 hour period Aleve / Hx Tablets 220mg as needed Unknown 0000 - 2016 Medications Administered in Office Medication Date Status Form Strength Qnty SIG Indications Ordering Provider Inj, Administered Injection Aba Martinez Regadenoson, 016 Villasenor, 0.1 MG M.D., FACC, FASNC Technetium TC Administered Injection Aba Martinez 99M 016 Francisco Villasenor M.D., FACC, Per Unit Dose FASNC Up To 40 Millicuries Inj, Administered Injection Abacarlos Martinez Regadenoson, 014 Villasenor, 0.1 MG M.D., FACC, FASNC Technetium TC Administered Injection Aba Martinez 99M 014 Francisco Villasenor M.D., FACJose Maria, Per Unit Dose FASNC Up To 40 Millicuries Immunizations CPT Code Status Date Vaccine Lot # [id number] Given 08/31/2017 Influenza Virus Vaccine, Quadrivalent, Split, [id number] Preservative Free 95835 Given 06/15/2017 Pneumococcal Conjugate Vaccine 13 Valent For [id number] Intramuscular Use Q2037 Given 11/03/2015 Fluvirin Im 3Yrs And Older 21724 Given 09/05/2015 Influenza Virus 3Yrs & Over Vital Signs Date Vital Result Comment 03/13/2018 Weight 163.00 lb Heart Rate 74 [...] Procedures Date CPT Code Description Status 10/10/2017 07047 EKG Tracing & Interpretation Completed 10/04/2017 56748 ECHO Transthoracic, Real-Time 2D With Doppler And Color Completed Flow 10/04/2017 28206 ECHO Transthoracic, Real-Time 2D With Doppler And Color Completed Flow 10/05/2016 97550 EKG Tracing & Interpretation Completed 09/29/2016 04816 Stress Test Completed 09/29/2016 00134 Myocardial Perfusion Imaging Tomographic (Spect) Completed Multiple Studies 09/28/2016 75118 ECHO Transthoracic, Real-Time 2D With Doppler And Color Completed Flow 06/28/2016 74190 EKG Tracing & Interpretation Completed 05/31/2016 27942 ECHO Transthoracic, Real-Time 2D With Doppler And Color Completed Flow 09/04/2015 10383 Pulmonary Stress Test Simple Completed 08/17/2015 81892 Polysomnography Sleep Staging 4+ Parameters W/Cpap Completed 06/03/2015 56895 EKG Tracing & Interpretation Completed 05/19/2015 62920 ECHO Transthoracic, Real-Time 2D With Doppler And Color Completed Flow 05/13/2014 82169 Stress Test Completed 05/13/2014 81571 Myocardial Perfusion Imaging Tomographic (Spect) Completed Multiple Studies 04/26/2014 10498 ECHO Transthoracic, Real-Time 2D With Doppler And Color Completed Flow 04/26/2014 50430 ECHO Transthoracic, Real-Time 2D With Doppler And Color Completed Flow 04/19/2014 76249 EKG Tracing & Interpretation Completed 07/06/2013 07837 ECHO Transthoracic, Real-Time 2D With Doppler And Color Completed Flow 12/25/2012 75621 EKG Tracing & Interpretation Completed 08/19/2009 Colonoscopy Completed 08/29/2008 10056 EKG, Interpretation Only Completed 08/29/2008 57898 EKG, Interpretation Only Completed 08/10/2005 Colonoscopy Completed Encounters Type Date Location Provider CPT E/M Dx Office Visit 02/03/2018 [facility] Internal Medicine Ian Meadows, [address]90 G31.84 10:20a Ceferino Whitaker M.D. I10 E78.2 R47.01 Office Visit 01/24/2018 10:30a [facility] [address] J44.9 Services Of [facility] G47.33 J98.4 E66.09 Office Visit 10/10/2017 9:45a [facility] Aba Martinez 30345 I77.810 Theresa Villasenor, [facility] Office Visit 09/30/2017 2:30p [facility] Orion Alston 60883 G31.84 Theresa Bowman G47.33 Office Visit 07/27/2017 9:45a Pulmonology And Sleep Yanira Wise MD G9695 G47.33 Services Of [facility] J44.9 J98.4 E66.01 Z68.28 Office Visit 07/07/2017 10:30a [facility] Sleep Yanira Wise MD G9695 G47.33 Services Of [facility] J44.9 E66.09 J98.4 Office Visit 06/15/2017 2:20p [facility] Internal Medicine IanSandovalie, 57292 I25.10 - Sherman Cardenas I73.9 I10 E78.2 J44.9 G47.33 Z85.038 K21.9 Z23 Office Visit 06/07/2017 1:45p [facility] [place] [address] G47.33 Services Of [facility] J44.9 Office Visit 01/25/2017 3:00p [facility] Orion Bowman, 74002 G31.84 Services Of Derian Cardenas I65.23 Office Visit 11/04/2016 10:00a [facility] [place] [address] J43.9 Services [facility] G47.33 J98.4 Office Visit 10/05/2016 1:30p [facility] Aba Villasenor, 50149 I25.10 Derian Cardenas, FAC, [facility] Office Visit 06/28/2016 10:30a [facility] Aba Villasenor, 03113 I25.9 Derian Cardenas, FACC, [facility] Office Visit 05/04/2016 10:00a [facility] [place] [address] G47.33 Services Of [facility] J43.9 Office Visit 11/03/2015 10:00a [facility] [place] [address] G47.33 Services Of [facility] R06.02 Office Visit 09/05/2015 9:30a [facility] [place] [address] G47.33 Services Of [facility] J43.9 J98.4 Office Visit 07/03/2015 8:45a [facility] [place] [address] 786.05 Services Of [facility] 780.57 Office Visit 06/03/2015 1:00p [facility] Aba Villasenor, 50784 414.00 Derian Cardenas, FACC, [facility] Office Visit 05/15/2014 12:30p [facility] Aba Villasenor, 09397 414.9 Theresa, FAC, [facility] 786.09 443.9 Office Visit 04/19/2014 11:30a [facility] Aba Villasenor, 50450 414.9 Theresa, [facility] Office Visit 07/13/2013 12:00p [facility] Aba Villasenor, 10438 414.9 Derian Cardenas, [facility] Office Visit 12/25/2012 10:15a [facility] Aba Villasenor, 54136 414.9 Derian Cardenas, [facility] Plan of Care Future Appointment(s):04/18/2018 10:45 am - Yanira Wise MD at [facility] Services [facility]03/31/2018 2:45 pm - Orion Bowman M.D. at Neurohospitalist [facility]1503/13/2018 - Ian Meadows M.D.R10.32 Left lower quadrant painK43.9 Ventral hernia without obstruction or gangreneReferral:Vargas Nina MD, Surgery,General
[2018-04-06 07:36] VITALS: BP 203/88
[2018-04-06] MEDS ORDERED: HYDROcodone/ACETAMIN 5-325 MG* 1 TAB PO ONE (07:50)
--- NOTE | 2018-04-06 08:42 | RAD ---
HISTORY: Left mid and lower T-spine pain COMPARISONS: CT chest dated August 28, 2015 VIEWS: 3, Frontal and lateral views of the thoracic spine. FINDINGS: ALIGNMENT: The alignment is normal. VERTEBRAL BODIES: The vertebral body heights are normal. The interpedicular distances are normal. There is multilevel bridging anterolateral marginal osteophyte formation. JOINTS: Unremarkable. INTERVERTEBRAL DISCS: There is diffuse loss of intervertebral disc height. SOFT TISSUE: Unremarkable OTHER: The visualized lungs are clear. IMPRESSION: DEGENERATIVE DISC DISEASE.
--- NOTE | 2018-04-06 08:43 | RAD ---
INDICATION: Left posterior rib pain. COMPARISON: Comparison is made with a prior chest x-ray study from June 11, 2015. TECHNIQUE: 4 views of the left ribs and dual-energy PA views of the chest were obtained. FINDINGS: No fracture or significant focal osseous abnormality is seen. The heart is within normal limits in size. The lungs are underinflated. There is a small nodular infiltrate at the right lung base. No pleural effusion or pneumothorax is seen. IMPRESSION: 1. LOW LUNG VOLUMES. SMALL NODULAR INFILTRATE AT THE RIGHT LUNG BASE. RECOMMEND FOLLOW-UP CHEST X-RAYS TO RESOLUTION. IF THIS DOES NOT RESOLVE CONSIDER A CT OF THE CHEST FOR FURTHER EVALUATION. 2. NO EVIDENCE FOR FRACTURE.
--- NOTE | 2018-04-06 09:23 | UC ---
Mary Coe Tenzin, scribed for Onel Barajas MD on 04/06/18 at 0830 . Back Pain HPI - HPI Summary HPI Summary: Pt is a 77 years old male presenting to the with chronic back pain at baseline that has gotten worse since four days ago in his left lower back. Pt reports that the pain started after tweaking his back from mowing his lawn. The pt rates the severity of the back pain at 6/10 during the onset. He describes the pain as "almost crying". But currently notes the pain is at 4/10 and mild. Pt notes that the pain aggravates when he moves his shoulder and notes he took Aleve to alleviate his pain. Pt denies interior chest pain or any SOB. - History of Current Complaint Chief Complaint: UCBackPain Stated Complaint: UPPER BACK PAIN Time Seen by Provider: 04/06/18 07:33 Hx Obtained From: Patient Onset/Duration: Lasting Days Severity Initially: Moderate Severity Currently: Mild Pain Intensity: 4 Pain Scale Used: 0-10 Numeric Back Pain: Is Discrete @ - Left lower back Aggravating Factor(s): Movement - shoulder, Other Alleviating Factor(s): Other - Pain reliever meds - Allergies/Home Medications Allergies/Adverse Reactions: Allergies Allergy/AdvReac Type Severity Reaction Status Date / Time codeine Allergy Rash Verified 04/06/18 07:37 lisinopril Allergy SEVERE Verified 04/06/18 07:37 COUGHING carisoprodol [From Soma] AdvReac Severe Dizziness Verified 04/06/18 07:37 oxycodone AdvReac GI Upset Verified 04/06/18 07:37 Home Medications: Home Medications Solifenacin Succinate [Vesicare] 5 mg PO DAILY 04/06/18 [History Confirmed 04/06] PMH/Surg Hx/FS Hx/Imm Hx Cardiovascular History: Cardiac Disease - Stents - Surgical History Surgical History: Yes Surgery Procedure, Year, and Place: 1956-appendectomy,. 03/1999-Hemicollectomy w /end to end anastamosis,. 12/20044718-Flk-Ong bypass right to left,. 03/2006- Thrombolectomy & stent placement in LEFT fem graft site, Cardiac Cath-February 20 & 2011 with 5 stents in RT coronary artery(RESOLUTE INTEGRITY PER MRI SAFETY CONDITIONAL 5 OK FOR 1.5 OR 3T), Cardiac cath February 25 2012 with 2 stents in LEFT circumflex artery (RESOLUTE INTEGRITY PER MRI SAFEY CONDITIONAL 5 OK FOR 1.5 OR 3T). CATARACTS. Lt GROIN - PSUEDOANEURYSM ( OP REPORT IN W/ PREV MRI - PACS DACRON USED NO METAL CLIPS OR COILS)- 07/2016 - [facility] (W/ DR HANDY - VASCULAR SURG - [phone]). TURP - 10/2016 - Social History Alcohol Use: Rare Alcohol Amount: 1x month Substance Use Type: None Smoking Status (MU): Former Smoker Type: Cigarettes Amount Used/How Often: 1-2 PPD, THEN DOWN TO 1/2PPD 50 YRS Have You Smoked in the Last Year: No When Did the Patient Quit Smoking/Using Tobacco: 2011 Review of Systems Constitutional: Negative Skin: Negative Eyes: Negative ENT: Negative Respiratory: Negative Cardiovascular: Negative Gastrointestinal: Negative Genitourinary: Negative Motor: Negative Neurovascular: Negative Musculoskeletal: Other: - Lower back pain Neurological: Negative Psychological: Negative All Other Systems Reviewed And Are Negative: Yes - Comments Additional Review of Systems Comments: Positive: Lower back pain. Physical Exam - Summary Physical Exam Summary: General: well-appearing, no pain distress Skin: warm, color reflects adequate perfusion, dry Head: normal Eyes: EOMI, JOSE DANIEL ENT: normal Neck: supple, nontender Respiratory: CTA, breath sounds present Cardiovascular: RRR Abdomen: soft, nontender Bowel: present Musculoskeletal: Tender to the Left Thoracic spine, Lower T(8-11) and Tender to the medial shoulder blades. Neurological: sensory/motor intact, A&O x3 Psychological: affect/mood appropriate Triage Information Reviewed: Yes Vital Signs: Initial Vital Signs Temp 97.8 F 04/06/18 07:29 Pulse 65 04/06/18 07:29 Resp 14 04/06/18 07:29 BP 203/88 04/06/18 07:29 Pulse Ox 96 04/06/18 07:29 Vital Signs Reviewed: Yes Diagnostics - Radiology Thoracic spine X ray Xray Interpretation: Positive (See Comments) - Impression: Degenerative Disc Disease. Dr. Barajas reviewed the report. Radiology Interpretation Completed By: Radiologist Ribs with Chest Xray Radiology Interpretation Completed By: Radiologist - IMPRESSION: 1. LOW LUNG VOLUMES. SMALL NODULAR INFILTRATE AT THE RIGHT LUNG BASE. RECOMMEND FOLLOW-UP CHEST X-RAYS TO RESOLUTION. IF THIS DOES NOT RESOLVE CONSIDER A CT OF THE CHEST FOR FURTHER EVALUATION. 2. NO EVIDENCE FOR FRACTURE. Dr. Barajas reviewed the report. Back Pain Course/Dx - Course Course Of Treatment: DENIES ANTERIOR CHEST PAIN/SOB/CARDIAC SX. PATIENT AWARE OF PULMONARY NODULE AND IS FOLLOWING IT WITH HIS DOCTOR. - Differential Dx/Diagnosis Provider Diagnoses: THORACIC BACK PAIN. PULMONARY NODULE Discharge - Sign-Out/Discharge Documenting (check all that apply): Discharge/Admit/Transfer - Discharge Plan Condition: Stable Disposition: HOME Prescriptions: HYDROcodone/ACETAMIN 5-325 MG* [[place] 5-325 TAB*] 1 tab PO Q6H PRN #15 tab MDD 4 PRN Reason: Pain Patient Education Materials: Acute Low Back Pain (ED), Thoracic Pain (ED), Pulmonary Nodules (ED), Degenerative Disc Disease (ED) Referrals: Ian Meadows MD [Primary Care Provider] - Additional Instructions: FOLLOW UP WITH YOUR DOCTOR. GET RECHECKED FOR ANY WORSENING OF YOUR CONDITION; PAIN, SHORTNESS OF BREATH, FEVER, CHEST PAIN OR QUESTIONS OR CONCERNS. - Billing Disposition and Condition Condition: STABLE Disposition: Home The documentation as recorded by the Mary chapin Tenzin accurately reflects the service I personally performed and the decisions made by me, Onel Barajas MD.
== END 2018-04-06 09:14 | disposition home or self-care (01) ==
LOC: UCEAST 07:23
DX: M51.34 Other intervertebral disc degeneration, thoracic region (principal); M54.5 Low back pain; R91.1 Solitary pulmonary nodule; I51.9 Heart disease, unspecified; Z95.5 Presence of coronary angioplasty implant and graft; Z88.5 Allergy status to narcotic agent; Z88.8 Allergy status to other drugs, medicaments and biological substances; Z87.891 Personal history of nicotine dependence
CPT/HCPCS: 72070; 99212; G0463

== ENCOUNTER 2018-04-09 17:20 | Emergency (ER) | payer MEDICARE ==
--- OUTSIDE RECORDS SUMMARY | 2018-04-09 18:04 | XMS REPORT ---
:1940 External Reference #:[id number] Author Organization [employer] Address [address] [place] [address] Phone [phone] Care Team Providers Name Role Phone Ian Meadows III, MD Primary Care Physician Unavailable Payers Type Date Identification Numbers Payment Subscriber Provider Health Maintenance Effective: Policy Number: Medicare Robin Beltran (O) 10/31/2012 [id number] o Group Number: [id number] [address] [address] PayID: [id number] JAKI Taveras [id number] Problems Date Description Provider Status Onset: 04/19/2014 Dyspnea Aba Villasenor M.D., Active FACC, JOEY Onset: 04/19/2014 Coronary atherosclerosis Aba Villasenor [...] 50mg 30tabs 1 by Ian Caballero Potassium 2015 mouth Dori, every day M.D. Nitrostat 07/16/ Active Tablets 0.4mg 1bottl one sl Aba Martinez 2013 Sub e q5min up Hamilton, to 3 M.D., doses as FACC, needed, FASNC if no relief after 3 call 911 Metoprolol 04/16/ Active Tablets ER 100mg 90tabs 1 by Aba Martinez Succinate ER 2012 24HR mouth Villasenor, every day M.D., FACC, FASNC Atorvastatin / Active Tablets 40mg 90tabs 1 by Ian Caballero Calcium 0000 mouth Dori, every day M.D. Aspir-81 00/ Active Tablets DR 81mg 1 by Unknown 0000 mouth every day Protonix / Active Tablets DR 40mg 180tab 1 by Ian Caballero 0000 s mouth Dori, twice a M.D. day [place] / Active Tablets 5-325mg 15tabs two tabs Ian Caballero 0000 by mouth Dori, every 6 M.D. hours as needed pain Nitrolingual 07/13/ Hx Solution 0.4mg/Spra 1units prn q `5 Aba Martinez Pumpspray 2012 - y min chest Hamilton, 07/16/ pain; M.DDelfina, 2012 call 911 FACC, if chest FASNC pain after 3 sprays Plavix /00/ Hx Tablets 75mg 90tabs 1 by Unknown 0000 - mouth 06/06/ every day 2016 Lisinopril 00/ Hx Tablets 10mg 90tabs 1 by Unknown 0000 - mouth 05/03/ every day 2015 Finasteride 00/ Hx Tablets 5mg 1 by Unknown 0000 - mouth 01/24/ every day 2016 Tramadol HCL / Hx Tablets 50mg 60tabs 1-2 Ian EDelfina 0000 - tablets Dori, 04/06/ every 6 M.D. 2018 hours as needed Vesicare 00/ Hx Tablets 5mg 1 by Unknown 0000 - mouth 01/23/ day 2017 Acetaminophen / Hx Capsules 500mg 1-2 caps Unknown Extra Strength 0000 - by mouth 09/29/ every 2017 hours as needed for pain. do not exceed 3 grams (6 tabs) in a 24 hour period Advil 0000/ Hx Tablets 200mg 1 tab po Unknown 0000 - qnoon and tab as 2018 needed Aleve 00/ Hx Tablets 220mg as needed Unknown 0000 - 2016 Aleve 0000/ Hx Capsules 220mg 1 tab po Unknown 0000 - qnoon and tab po 2018 as needed Medications Administered in Office Medication Date Status Form Strength Qnty SIG Indications Ordering Provider Inj, Administered Injection Abacarlos Martinez Regadenoson, 016 Villasenor, 0.1 MG M.D., FACC, FASNC Technetium TC Administered Injection Aba Martinez 99M 016 Francisco Villasenor M.D., FACJose Maria, Per Unit Dose FASNC Up To 40 Millicuries Inj, Administered Injection Abacarlos Martinez Regadenoson, 014 Villasenor, 0.1 MG M.D., FACC, FASNC Technetium TC Administered Injection Aba Martinez 99M 014 Francisco Villasenor M.D., FACC, Per Unit Dose FASNC Up To 40 Millicuries Immunizations CPT Code Status Date Vaccine Lot # [id number] Given 08/31/2017 Influenza Virus Vaccine, Quadrivalent, Split, [id number] Preservative Free 17980 Given 06/15/2017 Pneumococcal Conjugate Vaccine 13 Valent For [id number] Intramuscular Use Q2037 Given 11/03/2015 Fluvirin Im 3Yrs And Older 35093 Given 09/05/2015 Influenza Virus 3Yrs & Over Vital Signs Date Vital Result Comment 04/07/2018 Height 62.5 inches 5'2.50" Weight 162.00 lb Heart Rate 57 /min BP Systolic Sitting 138 mmHg BP Diastolic Sitting 80 mmHg Body Temperature 97.3 F Pain Level 4 Left back over shoulder to elbow O2 % BldC Oximetry 96 % BMI (Body Mass Index) 29.2 kg/m2 03/31/2018 Height 62.5 inches 5'2.50" Weight 163.00 [...] Procedures Date CPT Code Description Status 10/10/2017 32581 EKG Tracing & Interpretation Completed 10/04/2017 79659 ECHO Transthoracic, Real-Time 2D With Doppler And Color Completed Flow 10/04/2017 84253 ECHO Transthoracic, Real-Time 2D With Doppler And Color Completed Flow 10/05/2016 41185 EKG Tracing & Interpretation Completed 09/29/2016 72042 Stress Test Completed 09/29/2016 43120 Myocardial Perfusion Imaging Tomographic (Spect) Completed Multiple Studies 09/28/2016 11609 ECHO Transthoracic, Real-Time 2D With Doppler And Color Completed Flow 06/28/2016 05238 EKG Tracing & Interpretation Completed 05/31/2016 66212 ECHO Transthoracic, Real-Time 2D With Doppler And Color Completed Flow 09/04/2015 43906 Pulmonary Stress Test Simple Completed 08/17/2015 90707 Polysomnography Sleep Staging 4+ Parameters W/Cpap Completed 06/03/2015 17044 EKG Tracing & Interpretation Completed 05/19/2015 47987 ECHO Transthoracic, Real-Time 2D With Doppler And Color Completed Flow 05/13/2014 24567 Stress Test Completed 05/13/2014 87133 Myocardial Perfusion Imaging Tomographic (Spect) Completed Multiple Studies 04/26/2014 34513 ECHO Transthoracic, Real-Time 2D With Doppler And Color Completed Flow 04/26/2014 44833 ECHO Transthoracic, Real-Time 2D With Doppler And Color Completed Flow 04/19/2014 16899 EKG Tracing & Interpretation Completed 07/06/2013 26667 ECHO Transthoracic, Real-Time 2D With Doppler And Color Completed Flow 12/25/2012 46725 EKG Tracing & Interpretation Completed 08/19/2009 Colonoscopy Completed 08/29/2008 71449 EKG, Interpretation Only Completed 08/29/2008 69159 EKG, Interpretation Only Completed 08/10/2005 Colonoscopy Completed Encounters Type Date Location Provider CPT E/M Dx Office Visit 03/31/2018 [facility] Orion Bowman, 71934 G31.84 2:45p Theresa Office Visit 03/20/2018 [facility] Vargas Nina, 03006 K43.2 11:30a MD Office Visit 02/03/2018 [facility] Internal Medicine - Ian Meadows, 35250 G31.84 10:20a Sherman Cardenas I10 E78.2 R47.01 Office Visit 01/24/2018 10:30a [facility] [place] [address] J44.9 [facility] Of [facility] G47.33 J98.4 E66.09 Office Visit 10/10/2017 9:45a [facility] Aba Martinez 64729 I77.810 Theresa Villasenor, [facility] Office Visit 09/30/2017 2:30p [facility] Orion Alston 00818 G31.84 Theresa Bowman G47.33 Office Visit 07/27/2017 9:45a [facility] Yanira Wise MD G9695 G47.33 [facility] J44.9 J98.4 E66.01 Z68.28 Office Visit 07/07/2017 10:30a [facility] Sleep Yanira Wise MD G9695 G47.33 [facility] J44.9 E66.09 J98.4 Office Visit 06/15/2017 2:20p [facility] Internal Medicine Ian Meadows, 61698 I25.10 - Sherman Cardenas I73.9 I10 E78.2 J44.9 G47.33 Z85.038 K21.9 Z23 Office Visit 06/07/2017 1:45p [facility] [place] [address] G47.33 [facility] J44.9 Office Visit 01/25/2017 3:00p [facility] Orion Bowman, 16732 G31.84 [facility] Theresa I65.23 Office Visit 11/04/2016 10:00a [facility] [place] [address] J43.9 [facility] G47.33 J98.4 Office Visit 10/05/2016 1:30p [facility] Aba Villasenor, 62058 I25.10 Derian Cardenas, FACJose Maria, [facility] Office Visit 06/28/2016 10:30a [facility] Aba Villasenor, 50719 I25.9 Derian Cardenas, FACC, FASMO Office Visit 05/04/2016 10:00a [facility] [place] [address] G47.33 [facility] J43.9 Office Visit 11/03/2015 10:00a [facility] [place] [address] G47.33 [facility] R06.02 Office Visit 09/05/2015 9:30a [facility] [place] [address] G47.33 [facility] J43.9 J98.4 Office Visit 07/03/2015 8:45a [facility] [place] [address] 786.05 [facility] 780.57 Office Visit 06/03/2015 1:00p [facility] Aba Martinez Villasenor, 48929 414.00 Derian Cardenas, FACJose Maria, [facility] Office Visit 05/15/2014 12:30p [facility] Aba Juan Villasenor, 05901 414.9 MMartin, FACJose Maria, [facility] 786.09 443.9 Office Visit 04/19/2014 11:30a [facility] Aba Juan Villasenor, 76635 414.9 Theresa, FACC, FASMO Office Visit 07/13/2013 12:00p [facility] Aba Juan Villasenor, 97273 414.9 Derian Cardenas, FACC, FASMO Office Visit 12/25/2012 10:15a [facility] Aba Juan Villasenor, 49353 414.9 Derian Cardenas, FACC, [facility] Plan of Care Future Appointment(s):10/06/2018 2:45 pm - [facility] 9:00 am - [facility] M.D., [facility]04/18/2018 10:45 am - Yanira Wise MD at [facility]04/07/2018 - Ian Meadows M.D.M54.9 Dorsalgia, unspecified
[2018-04-09 18:11] VITALS: BP 149/76
[2018-04-09] MEDS ORDERED: Bupivacaine 0.25% SDV* 30 ML INJ ONE (18:52)
[2018-04-09] MEDS ORDERED: Bupivacaine 0.25% SDV* 30 ML ONE (18:59)
--- NOTE | 2018-04-09 19:36 | ED ---
Mario Coe Jade, scribed for Arcadio Simental MD on 04/09/18 at 1913 . Back Pain - HPI Summary HPI Summary: Pt is a 77 y/o male who presents to [facility] c/o back pain. Pt states 2 weeks ago he had sudden mid-back pain during his physical therapy appointment when the therapist was touching his spine. He suspects the pain is from trying to start the cuff cutter the day before. Pt was here 3 days ago, and an XR showed no broken bones. He describes the pain as burning and stinging in nature, radiates to his left scapula, and states the pain travels. His back hurts even when he s still, and especially at night. He denies any N/V, abdominal pain, coughing, CP, SOB, or pain radiating down his legs. PMHx CAD, HLD, and HTN. - History of Current Complaint Chief Complaint: UCBackPain Stated Complaint: BACK PAIN Time Seen by Provider: 04/09/18 18:38 Hx Obtained From: Patient Onset/Duration: Sudden Onset - 2 weeks ago, Still Present Timing: Constant Back Pain Location: Radiates To - Mid back and left scapula, "travels" Severity Currently: Mild Pain Intensity: 3 Pain Scale Used: 0-10 Numeric Character: Burning - "Stinging" Aggravating Symptom(s): Movement - Allergies/Home Medications Allergies/Adverse Reactions: Allergies Allergy/AdvReac Type Severity Reaction Status Date / Time codeine Allergy Rash Verified 04/09/18 18:11 lisinopril Allergy SEVERE Verified 04/09/18 18:11 COUGHING carisoprodol [From Soma] AdvReac Severe Dizziness Verified 04/09/18 18:11 oxycodone AdvReac GI Upset Verified 04/09/18 18:11 PMH/Surg Hx/FS Hx/Imm Hx Endocrine/Hematology History: Reports: Hx Anemia - DUE TO MEDS Denies: Hx Diabetes, Hx Thyroid Disease Cardiovascular History: Reports: Hx Angina - STATES NONE SINCE STNETS INSERTED 2011, Hx Coronary Artery Disease - 7 STENTS, 2011; DR TONY, Hx Deep Vein Thrombosis - had embolectomy, Hx Hypertension - ON MEDS, Hx Peripheral Vascular Disease - 07/2019 LT FEMERAL ARTERY BYPASS SURGERY, Other Cardiovascular Problems /Disorders - 7 stents placed in 2011 Denies: Hx Pacemaker/ICD Respiratory History: Reports: Hx Chronic Obstructive Pulmonary Disease (COPD), Hx Sleep Apnea, Other Respiratory Problems/Disorders - 50 YR SMOKER Denies: Hx Asthma GI History: Denies: Hx Ulcer History: Reports: Other Problems/Disorders - enlarged prostate Denies: Hx Renal Disease Musculoskeletal History: Reports: Hx Arthritis - GENERALIZED, Hx Back Problems - low back Sensory History: Reports: Hx Cataracts - BILATERAL, Hx Contacts or Glasses - reading glasses, Hx Glaucoma - Hx OF, [id number] Denies: Hx Hearing Aid Opthamlomology History: Reports: Hx Cataracts - BILATERAL, Hx Contacts or Glasses - reading glasses, Hx Glaucoma - Hx OF, [id number] Neurological History: Comment Only: Other Neuro Impairments/Disorders - PAIN CLINIC PT. Psychiatric History: Denies: Hx Panic Disorder - Cancer History Cancer Type, Location and Year: COLON CA Hx Chemotherapy: No Hx Radiation Therapy: No - Surgical History Surgery Procedure, Year, and Place: 1956-appendectomy,. 03/1999-Hemicollectomy w /end to end anastamosis,. [id number]-Akz-Shb bypass right to left,. 03/2006- Thrombolectomy & stent placement in LEFT fem graft site, Cardiac Cath-February 20 & 2011 with 5 stents in RT coronary artery(RESOLUTE INTEGRITY PER MRI SAFETY CONDITIONAL 5 OK FOR 1.5 OR 3T), Cardiac cath February 25 2012 with 2 stents in LEFT circumflex artery (RESOLUTE INTEGRITY PER MRI SAFEY CONDITIONAL 5 OK FOR 1.5 OR 3T). CATARACTS. Lt GROIN - PSUEDOANEURYSM ( OP REPORT IN W/ PREV MRI - PACS DACRON USED NO METAL CLIPS OR COILS)- 07/2016 - [facility] (W/ DR HANDY - VASCULAR SURG - [phone]). TURP - 10/2016 Hx Anesthesia Reactions: No Infectious Disease History: Yes Infectious Disease History: Denies: Hx Clostridium Difficile, Hx Hepatitis, Hx Human Immunodeficiency Virus (HIV), Hx of Known/Suspected MRSA, Hx Shingles, Hx Tuberculosis, Hx Known/ Suspected VRE, Hx Known/Suspected VRSA, History Other Infectious Disease, Traveled Outside the [place] in Last 30 Days - Social History Alcohol Use: Rare Alcohol Amount: 1x month Substance Use Type: Reports: None Smoking Status (MU): Former Smoker Type: Cigarettes Amount Used/How Often: 1-2 PPD, THEN DOWN TO 1/2PPD 50 YRS Have You Smoked in the Last Year: No Review of Systems Negative: Chest Pain Negative: Shortness Of Breath, Cough Negative: Abdominal Pain, Vomiting, Nausea Positive: Myalgia - Mid-back and left scapula pain, Other - NEGATIVE pain radiating down legs All Other Systems Reviewed And Are Negative: Yes Physical Exam - Summary Physical Exam Summary: Appearance: Well appearing, no pain distress Skin: warm, dry, reflects adequate perfusion Head/face: normal Eyes: EOMI, JOSE DANIEL ENT: normal Neck: supple, non-tender Respiratory: CTA, breath sounds present Cardiovascular: RRR, pulses symmetrical Abdomen: non-tender, soft. No pulsatile abdominal mass. Umbilical hernia, periumbilical surgical scar. Surgical scar on skin overlying right scapula. Bowel Sounds: present Musculoskeletal: normal, strength/ROM intact. Tenderness over left latissimus muscle. Neuro: normal, sensory motor intact, A&Ox3. Negative straight leg raise test. Triage Information Reviewed: Yes Vital Signs On Initial Exam: Initial Vitals Temp Pulse Resp BP Pulse Ox 98.8 F 74 18 149/76 98 04/09/18 18:05 04/09/18 18:05 04/09/18 18:05 04/09/18 18:05 04/09/18 18:05 Vital Signs Reviewed: Yes Procedures - Procedure Summary Procedure Summary: Trigger point injection: Reason: Muscular pain Description: The area of the left latissimus dorsi muscle under the scapula was cleaned with alcohol. The muscle was injected with a 25-gauge needle in several locations with a total of 20 cc of 0.25% bupivacaine. The medication was massaged into the tissues. He tolerated this well without complications. His pain relief was excellent. He regained range of motion. Diagnostics - Vital Signs Vital Signs Temp Pulse Resp BP Pulse Ox 04/09/18 18:05 98.8 F 74 18 149/76 98 - Laboratory Lab Statement: Any lab studies that have been ordered have been reviewed, and results considered in the medical decision making process. Re-Evaluation - Re-Evaluation First Eval Change: Improved - Pain resolved and range of motion restored after trigger point injection. Back Pain Course/Dx - Course Course Of Treatment: Patient with second visit for muscular tenderness in the latissimus area. He did this pull starting a lawnmower. Had x-rays the other day that were non diagnostic. Trigger point injections greatly improved pain. Will start Skelaxin as needed. Patient currently already sees physical therapy. He is encouraged to talk to them about treating this area. - Diagnoses Provider Diagnoses: Strain of latissimus dorsi muscle Discharge - Sign-Out/Discharge Documenting (check all that apply): Discharge/Admit/Transfer - Discharged - Discharge Plan Condition: Good Disposition: HOME Prescriptions: Metaxalone TAB* [Skelaxin TAB*] 800 mg PO TID PRN #15 tab PRN Reason: muscle pain Patient Education Materials: Muscle Strain (ED) Referrals: Ian Meadows MD [Primary Care Provider] - Additional Instructions: Ice, range of motion exercises/stretching and physical therapy in the area may help. Avoid pull starting lawnmower, overhead pulling or any rowing motions. Tylenol or ibuprofen as needed. Return if worse, new symptoms or other concerns. - Billing Disposition and Condition Condition: GOOD Disposition: Home The documentation as recorded by the Mario chapin Jade accurately reflects the service I personally performed and the decisions made by me, Arcadio Simental MD.
== END 2018-04-09 19:30 | disposition home or self-care (01) ==
LOC: UCEAST 17:20
DX: S39.012A Strain of muscle, fascia and tendon of lower back, initial encounter (principal); X58.XXXA Exposure to other specified factors, initial encounter; Y93.9 Activity, unspecified; Y92.9 Unspecified place or not applicable; Z88.5 Allergy status to narcotic agent; Z88.8 Allergy status to other drugs, medicaments and biological substances; D64.9 Anemia, unspecified; I25.119 Atherosclerotic heart disease of native coronary artery with unspecified angina pectoris; I10 Essential (primary) hypertension; Z95.5 Presence of coronary angioplasty implant and graft; Z86.718 Personal history of other venous thrombosis and embolism; I73.9 Peripheral vascular disease, unspecified; J44.9 Chronic obstructive pulmonary disease, unspecified; G47.30 Sleep apnea, unspecified; N40.0 Benign prostatic hyperplasia without lower urinary tract symptoms; Z85.038 Personal history of other malignant neoplasm of large intestine; Z87.891 Personal history of nicotine dependence
CPT/HCPCS: 99212; G0463

== ENCOUNTER 2018-10-11 06:36 | Inpatient (IN) | payer MEDICARE ==
--- OUTSIDE RECORDS SUMMARY | 2018-10-11 06:44 | XMS REPORT | Continuity of Care Document ---
:1940 External Reference #:[id number] Author Name Miladys Angulo Care Team Providers Name Role Phone Ian Meadows III, MD Primary Care Physician Unavailable Payers Type Date Identification Numbers Payment Provider Subscriber Effective: Policy Number: [id number] Medicare Blue Ppo Rick Rangel 2012 Group Number: [id number] [address] [address] PayID: [id number] [place] [address] Advance Directives Description No Information Available Problems Date Description Provider Status Onset: 04/19/2014 Dyspnea Aba Villasenor M.D., Active FACC, FASIBAN Onset: 04/19/2014 Coronary atherosclerosis Aba Villasenor M.D., Active FACC, JOEY Onset: 05/15/2014 Chronic ischemic heart disease Aba Villasenor M.D., Active FACJose Maria, JOEY Onset: 05/15/2014 Difficulty breathing Aba Villasenor M.D., Active JAMIE, FASNC Onset: 07/03/2015 Dyssomnia Yanira Wise MD Active [...] Active Onset: 10/10/2017 Thoracic aortic ectasia Aba Vlilasenor M.D., Active [facility], [facility] Onset: 05/25/2018 Disorder of shoulder Calvin Young MD Active Onset: 05/25/2018 Localized, primary osteoarthritis Calvin Young MD Active of the shoulder region Onset: 10/03/2018 Minimal cognitive impairment Ian Meadows M.D. Active Family History Date Family Member(s) Problem(s) Comments General No Current Problems Father due to In MVA () Mother possible AD Mother due to at 81 Unknown () Social History Type Date Description Comments Sex Unknown Marital Status Lives With Occupation Retired Hand Dominance Left-handed Tobacco Use Start: Unknown End: Former Cigarette Smoker Unknown Smoking Status Reviewed: 10/06/18 Former Cigarette Smoker ETOH Use Rarely consumes wine ETOH Use Rarely consumes beer Tobacco Use Start: Unknown End: Patient is a former quit in Unknown smoker 2011;heavist was 2 ppd and towards end was 1 ppd q 3wks; started age 17 Recreational Drug Use Denies Drug Use Exercise Type/Frequency Does not exercise Allergies, Adverse Reactions, Alerts Date Description Reaction Status Severity Comments 04/19/2014 Soma Active Moderate overmedicates patient 06/03/2015 Codeine Dry Heaves and general Active Moderate tylenol with Codeine malaise 06/28/2016 Lisinopril Active hoarse throat 10/05/2016 Oxycodone upset stomach Active Medications Medication Date Status Form Strength Qnty SIG Indications Ordering Provider Pantoprazole 06/30/ Active Tablets DR 40mg 180ta Take One Ian Ada Sodium 2017 bs Tablet By Antonio Meadows qd M.DDelfina Losartan 05/06/ Active Tablets 50mg 90tab 1 by mouth Ian Alvarez. Potassium 2015 s every day Theresa Meadows Nitrostat 07/16/ Active Tablets 0.4mg 1bott one sl q5min Aba 2012 Sub le up to 3 Juan doses as Hamilton needed, if M.D., no relief FAC, after 3 call FASOR 911 Metoprolol 04/16/ Active Tablets ER 100mg 90tab 1 by mouth Aba Succinate ER 2013 24HR s every day Juan Villasenor M.D., FACC, FASOR Atorvastatin 00/00/ Active Tablets 40mg 90tab 1 by mouth Ian Caballero Calcium 0000 s every day travis Meadows M.D. appointment Aspir-81 00/00/ Active Tablets DR 81mg 1 by mouth Unknown 0000 every day Tramadol /00/ Active Tablets 50mg q4 hours prn Alvarado, 0000 Olivia [employer] Nitrolingual 07/13/ Hx Solution 0.4mg/Spr 1unit prn q `5 min Aba Pumpspray 2012 - ay s chest pain; Martinez 07/16/ call 911 if Villasenor, 2012 chest pain M.D., after 3 FACC, sprays FASNC Plavix /00/ Hx Tablets 75mg 90tab 1 by mouth Unknown 0000 - s every day 2016 Protonix 00/ Hx Tablets DR 40mg 180ta 1 by mouth Ian E. 0000 - bs twice a day Dori, 06/30/ M.D. 2018 Lisinopril /00/ Hx Tablets 10mg 90tab 1 by mouth Unknown 0000 - s every day 2015 Finasteride /00/ Hx Tablets 5mg 1 by mouth Unknown 0000 - every day 2016 Tramadol HCL 00/ Hx Tablets 50mg 60tab 1-2 tablets Ian EDelfina 0000 - s every Dori, 04/06/ hours as M.D. 2018 needed Vesicare 00/00/ Hx Tablets 5mg 1 by mouth Unknown 0000 - every day 2017 Acetaminophen /00/ Hx Capsules 500mg 1-2 caps by Unknown Extra Strength 0000 - mouth every 09/29/ hours as 2017 needed for pain. do not exceed 3 grams (6 tabs) in a 24 hour period Advil 00/00/ Hx Tablets 200mg 1 tab po Unknown 0000 - qnoon and 1 03/30/ tab as 2018 needed Aleve 00/00/ Hx Tablets 220mg as needed Unknown 0000 - 2016 Aleve 00/00/ Hx Capsules 220mg 1 tab po Unknown 0000 - qnoon and 1 04/07/ tab po as 2018 needed [place] 00/00/ Hx Tablets 5-325mg 15tab two tabs by Ian EDelfina 0000 - s mouth every Dori, 04/17/ hours as M.D. 2018 needed pain Medications Administered in Office Medication Date Status Form Strength Qnty SIG Indications Ordering Provider Triamcinolone 04/13/ Administered Injection Deepa (Kenalog) 2017 GERARDO Barr Inj, 09/29/ Administered Injection Aba Martinez Regadenoson, 0.1 2015 Hamilton, MG M.D., FACC, FASNC Technetium TC 09/29/ Administered Injection Aba Martinez 99M Tetrofosmin, 2015 Villasenor, Per Unit Dose Up M.D., To 40 FAC, Sudarshanjorge albertouripatrick FASNC Inj, 05/13/ Administered Injection Aba Martinez Regadenoson, 0.1 2013 Villasenor, MG M.D., FACC, FASNC Technetium TC 05/13/ Administered Injection Aba Martinez 99M Tetrofosmin, 2013 Villasenor, Per Unit Dose Up M.D., To 40 FAC, Shellie LISSETTENC Immunizations CPT Code Status Date Vaccine Lot # [id number] Given 10/03/2018 Tdap - Tetanus/Diptheria/Acellular Pertussis [id number] Given 10/03/2018 Influenza Virus Vaccine, Quadrivalent, Split, [id number] Preservative Free [id number] Given 08/31/2017 Influenza Virus Vaccine, Quadrivalent, Split, [id number] Preservative Free 31858 Given 06/15/2017 Pneumococcal Conjugate Vaccine 13 Valent For [id number] Intramuscular Use [id number] Given 11/03/2015 Fluvirin Im 3Yrs And Older [id number] Given 09/05/2015 Influenza Virus 3Yrs & Over 95380 Given 10/31/2005 Pneumonia Vaccine Vital Signs Date Vital Result Comment 10/06/2018 10:32am Height 62.5 inches 5'2.50" Weight 165.00 lb Heart Rate 70 /min BP Systolic Sitting 126 mmHg BP Diastolic Sitting 70 mmHg Respiratory Rate 16 /min BMI (Body Mass Index) 29.7 kg/m2 10/03/2018 10:26am Height 62.5 inches 5'2.50" Weight 165.00 lb Heart Rate 68 /min BP Systolic Sitting 130 mmHg BP Diastolic Sitting 70 mmHg O2 % BldC Oximetry 98 % BMI (Body Mass Index) 29.7 kg/m2 07/25/2018 8:42am Height 62.5 inches 5'2.50" Weight 166.00 lb Heart Rate 72 /min BP Systolic Sitting 140 mmHg BP Diastolic Sitting 92 mmHg Respiratory Rate 14 /min O2 % BldC Oximetry 96 % BMI (Body Mass Index) 29.9 kg/m2 05/25/2018 9:55am Height 62.5 inches 5'2.50" Weight 162.00 lb BP Systolic 112 mmHg BP Diastolic 64 mmHg Respiratory Rate 20 /min Pain Level 0 BMI (Body Mass Index) 29.2 kg/m2 04/18/2018 10:25am Height 62.5 inches 5'2.50" Weight 163.00 lb Heart Rate 68 /min BP Systolic Sitting 110 mmHg BP Diastolic Sitting 78 mmHg Respiratory Rate 14 /min O2 % BldC Oximetry 95 % BMI (Body Mass Index) 29.3 kg/m2 04/13/2018 2:30pm Height 62.5 inches 5'2.50" Weight 162.00 lb BP Systolic Sitting 154 mmHg BP Diastolic Sitting 70 mmHg Respiratory Rate 16 /min Body Temperature 97.0 F Pain Level 5 BMI (Body Mass Index) 29.2 kg/m2 04/07/2018 10:58am Height 62.5 inches 5'2.50" Weight 162.00 lb Heart Rate 57 /min BP Systolic Sitting 138 mmHg BP Diastolic Sitting 80 mmHg Body Temperature 97.3 F Pain Level 4 Left back over shoulder to elbow O2 % BldC Oximetry 96 % BMI (Body Mass Index) 29.2 kg/m2 03/31/2018 2:56pm Height 62.5 inches 5'2.50" Weight 163.00 lb Heart Rate 70 /min BP Systolic Sitting 130 mmHg BP Diastolic Sitting 70 mmHg Respiratory Rate 16 /min BMI (Body Mass Index) 29.3 kg/m2 03/20/2018 11:18am Height 62.5 inches 5'2.50" Weight 168.00 lb Heart Rate 76 /min BP Systolic 136 mmHg BP Diastolic 74 mmHg Respiratory Rate 16 /min Body Temperature 97.4 F BMI (Body Mass Index) 30.2 kg/m2 03/13/2018 4:04pm Weight 163.00 lb Heart Rate 74 /min BP Systolic Sitting 120 mmHg BP Diastolic Sitting 80 mmHg O2 % BldC Oximetry 98 % 02/03/2018 10:42am Weight 165.00 lb Heart Rate 60 /min BP Systolic Sitting 128 mmHg BP Diastolic Sitting 60 mmHg O2 % BldC Oximetry 97 % 01/24/2018 10:12am Height 62.5 inches 5'2.50" Weight 163.25 lb Heart Rate 54 /min BP Systolic Sitting 122 mmHg Lue regular cuff BP Diastolic Sitting 82 mmHg Lue regular cuff Respiratory Rate 16 /min O2 % BldC Oximetry 95 % BMI (Body Mass Index) 29.4 kg/m2 10/10/2017 9:12am Height 62.5 inches 5'2.50" Weight 166.00 lb No shoes Heart Rate 68 /min BP Systolic Sitting 90 mmHg Rue reg cuff BP Diastolic Sitting 52 mmHg Rue reg cuff BP Systolic Standing 104 mmHg Rue reg cuff BP Diastolic Standing 62 mmHg Rue reg cuff Respiratory Rate 15 /min BMI (Body Mass Index) 29.9 kg/m2 Ejection Fraction 55-60% 10/04/2017-echo 09/30/2017 2:10pm Height 64 inches 5'4" Weight 169.12 lb Heart Rate 60 /min BP Systolic 128 mmHg BP Diastolic 68 mmHg BMI (Body Mass Index) 29.0 kg/m2 07/27/2017 9:54am Height 64 inches 5'4" Weight 163.50 lb With shoes Heart Rate 58 /min BP Systolic Sitting 148 mmHg Rue reg cuff BP Diastolic Sitting 76 mmHg Rue reg cuff Respiratory Rate 14 /min O2 % BldC Oximetry 97 % On Ra BMI (Body Mass Index) 28.1 kg/m2 07/07/2017 10:24am Height 64 inches 5'4" Weight 155.38 lb Heart Rate 48 /min BP Systolic Sitting 130 mmHg BP Diastolic Sitting 80 mmHg Respiratory Rate 16 /min Pain Level 0 O2 % BldC Oximetry 92 % BMI (Body Mass Index) 26.7 kg/m2 06/15/2017 3:02pm Height 64 inches 5'4" Weight 165.00 lb Heart Rate 60 /min BP Systolic Sitting 140 mmHg BP Diastolic Sitting 74 mmHg O2 % BldC Oximetry 96 % BMI (Body Mass Index) 28.3 kg/m2 06/07/2017 1:50pm Height 64 inches 5'4" Weight 166.00 lb Heart Rate 68 /min BP Systolic Sitting 162 mmHg BP Diastolic Sitting 88 mmHg Respiratory Rate 16 /min O2 % BldC Oximetry 98 % room air BMI (Body Mass Index) 28.5 kg/m2 01/25/2017 3:08pm Height 64 inches 5'4" Weight 160.00 lb Heart Rate 52 /min BP Systolic Sitting 126 mmHg BP Diastolic Sitting 68 mmHg Respiratory Rate 14 /min BMI (Body Mass Index) 27.5 kg/m2 11/04/2016 9:57am Height 64 inches 5'4" Weight 160.00 lb Heart Rate 65 /min BP Systolic Sitting 122 mmHg BP Diastolic Sitting 62 mmHg Respiratory Rate 16 /min O2 % BldC Oximetry 96 % BMI (Body Mass Index) 27.5 kg/m2 10/05/2016 12:55pm Height 64 inches 5'4" Weight 159.00 lb with shoes Heart Rate 66 /min BP Systolic Sitting 116 mmHg Rue reg cuff BP Diastolic Sitting 64 mmHg Rue reg cuff BP Systolic Standing 122 mmHg Rue reg cuff BP Diastolic Standing 68 mmHg Rue reg cuff Respiratory Rate 17 /min BMI (Body Mass Index) 27.3 kg/m2 Ejection Fraction 55-60% 09/28/2016 06/28/2016 9:42am Height 64 inches 5'4" Weight 160.00 lb w/ shoes Heart Rate 62 /min reg BP Systolic Sitting 150 mmHg Lue, reg cuff BP Diastolic Sitting 76 mmHg Lue, reg cuff BP Systolic Standing 154 mmHg Lue BP Diastolic Standing 76 mmHg Lue Respiratory Rate 16 /min BMI (Body Mass Index) 27.5 kg/m2 Ejection Fraction 55-60% as of 05/31/16 echo 05/04/2016 9:54am Height 64 inches 5'4" Weight 160.00 lb Heart Rate 60 /min BP Systolic 124 mmHg BP Diastolic 74 mmHg Respiratory Rate 14 /min O2 % BldC Oximetry 96 % BMI (Body Mass Index) 27.5 kg/m2 11/03/2015 10:02am Height 64 inches 5'4" Weight 160.00 lb Heart Rate 65 /min BP Systolic Sitting 134 mmHg BP Diastolic Sitting 72 mmHg Respiratory Rate 18 /min O2 % BldC Oximetry 97 % BMI (Body Mass Index) 27.5 kg/m2 09/05/2015 9:32am Heart Rate 72 /min BP Systolic Sitting 132 mmHg BP Diastolic Sitting 74 mmHg Respiratory Rate 16 /min O2 % BldC Oximetry 97 % 07/03/2015 8:27am Height 64 inches 5'4" Weight 168.00 lb Heart Rate 66 /min BP Systolic 138 mmHg BP Diastolic 78 mmHg Respiratory Rate 14 /min Body Temperature 98.6 F O2 % BldC Oximetry 98 % BMI (Body Mass Index) 28.8 kg/m2 Neck Circumference in inches 17 07/03/2015 8:14am BP Systolic 134 mmHg BP Diastolic 86 mmHg 06/03/2015 12:35pm Height 64 inches 5'4" Weight 155.00 lb w/o shoes Heart Rate 76 /min irreg BP Systolic Sitting 140 mmHg Rue, reg cuff BP Diastolic Sitting 76 mmHg Rue, reg cuff BP Systolic Standing 136 mmHg Rue BP Diastolic Standing 80 mmHg Rue Respiratory Rate 18 /min BMI (Body Mass Index) 26.6 kg/m2 Ejection Fraction 55-60% as of 05/19/15 echo 05/15/2014 12:29pm Height 64 inches 5'4" Weight 157.00 lb Heart Rate 64 /min BP Systolic Sitting 120 mmHg LA reg cuff BP Diastolic Sitting 62 mmHg LA reg cuff BP Systolic Standing 104 mmHg LA BP Diastolic Standing 60 mmHg LA Respiratory Rate 16 /min BMI (Body Mass Index) 26.9 kg/m2 04/19/2014 11:32am Height 64 inches 5'4" Weight 159.75 lb w/shoes Heart Rate 64 /min BP Systolic Sitting 108 mmHg LA reg cuff BP Diastolic Sitting 58 mmHg LA reg cuff BP Systolic Standing 112 mmHg LA reg cuff BP Diastolic Standing 60 mmHg LA reg cuff Respiratory Rate 20 /min BMI (Body Mass Index) 27.4 kg/m2 Results Test Date Facility Test Result H/L Range Note Basic Metabolic 10/03/2018 [facility] Sodium 139 mmol/L N 135- [address] [place] [address] [phone] Potassium 5.0 mmol/L N 3.5-5.0 Chloride 105 mmol/L N 101-111 Co2 Carbon Dioxide 28 mmol/L N 22-32 Anion Gap 6 mmol/L N 2-11 Glucose 88 mg/dL N 70-100 Blood Urea Nitrogen 36 mg/dL High 6-24 Creatinine 1.58 mg/dL High 0.67-1.17 BUN/Creatinine Ratio 22.8 High 8-20 Calcium 9.9 mg/dL N 8.6-10.3 Egfr Non- 42.7 >60 Egfr 51.7 >60 1 CBC Auto Diff 10/03/2018 [facility] White Blood 6.6 10^3/uL N 3.5-10.[address] [place] [address] [phone] Red Blood Count 3.88 10^6/uL Low 4.00-5.40 Hemoglobin 13.5 g/dL Low 14.0-18.0 Hematocrit 39 % Low 42-52 Mean Corpuscular Volume 100 fL High 80-94 Mean Corpuscular Hemoglobin 35 pg High 27-31 Mean Corpuscular HGB Conc 35 g/dL N 31-36 Red Cell Distribution Width 14 % N 10.5-15 Platelet Count 119 10^3/uL Low 150-450 Mean Platelet Volume 9.1 fL N 7.4-10.4 Abs Neutrophils 4.5 10^3/uL N 1.5-7.7 Abs Lymphocytes 1.2 10^3/uL N 1.0-4.8 Abs Monocytes 0.8 10^3/uL N 0-0.8 Abs Eosinophils 0 10^3/uL N 0-0.6 Abs Basophils 0 10^3/uL N 0-0.2 Abs Nucleated RBC 0 10^3/uL Granulocyte % 69.2 % Lymphocyte % 17.6 % Monocyte % 12.4 % Eosinophil % 0.3 % Basophil % 0.5 % Nucleated Red Blood Cells % 0.2 CBC Auto Diff 02/06/2018 [facility] White Blood 4.8 10^3/uL N 3.5-10.[address] [place] [address] [phone] Red Blood Count 3.31 10^6/uL Low 4.0-5.4 Hemoglobin 11.7 g/dL Low 14.0-18.0 Hematocrit 33 % Low 42-52 Mean Corpuscular Volume 101 fL High 80-94 Mean Corpuscular Hemoglobin 35 pg High 27-31 Mean Corpuscular HGB Conc 35 g/dL N 31-36 Red Cell Distribution Width 14 % N 10.5-15 Platelet Count 114 10^3/uL Low 150-450 Mean Platelet Volume 8.4 um3 N 7.4-10.4 Abs Neutrophils 3.1 10^3/uL N 1.5-7.7 Abs Lymphocytes 1.3 10^3/uL N 1.0-4.8 Abs Monocytes 0.4 10^3/uL N 0-0.8 Abs Eosinophils 0 10^3/uL N 0-0.6 Abs Basophils 0 10^3/uL N 0-0.2 Abs Nucleated RBC 0 10^3/uL Granulocyte % 64.5 % N 38-83 Lymphocyte % 26.6 % N 25-47 Monocyte % 7.8 % High 0-7 Eosinophil % 0.6 % N 0-6 Basophil % 0.5 % N 0-2 Nucleated Red Blood Cells % 0 Laboratory test 02/06/2018 [facility] C Reactive < 1.00 N < 5.00 2 finding [address] [facility] Protein mg/L [place], [place] [id number] [phone] Erythrocyte Sed Rate 28 mm/Hr N 0-40 Syphillis Igg W/Reflex RPR Nonreactive Nonreactive 3 TSH (Thyroid Stim Horm) 2.57 mcIU/mL N 0.34-5.60 4 Vitamin B12 And 02/06/2018 [facility] Vitamin B12 700 pg/mL N 180-914 5 Folate Serum [address] [place] [address] [phone] Folic Acid (Folate) 14.08 ng/mL >3.99 6 Comp Metabolic Panel 02/06/2018 [facility] Sodium 140 mmol/L N 139-145 [address] [place] [address] [phone] Potassium 4.6 mmol/L N 3.5-5.0 Chloride 106 mmol/L N 101-111 Co2 Carbon Dioxide 29 mmol/L N 22-32 Anion Gap 5 mmol/L N 2-11 Glucose 95 mg/dL N 70-100 Blood Urea Nitrogen 29 mg/dL High 6-24 Creatinine 1.65 mg/dL High 0.67-1.17 BUN/Creatinine Ratio 17.6 N 8-20 Calcium 8.7 mg/dL N 8.6-10.3 Total Protein 6.8 g/dL N 6.4-8.9 Albumin 4.1 g/dL N 3.2-5.2 Globulin 2.7 g/dL N 2-4 Albumin/Globulin Ratio 1.5 N 1-3 Total Bilirubin 0.50 mg/dL N 0.2-1.0 Alkaline Phosphatase 76 U/L N 34-104 Alt 18 U/L N 7-52 Ast 18 U/L N 13-39 Egfr Non- 40.7 >60 Egfr 52.3 >60 7 Laboratory test 02/06/2018 [facility] PSA Diagnostic 0.697 ng/ mL N 0-4.[address] [place] [address] [phone] Lipid Profile 02/06/2018 [facility] Triglycerides 137 mg/dL 8 (Trig/Chol/HDL) [address] [place] [address] [phone] Cholesterol 117 mg/dL 9 HDL Cholesterol 29.3 mg/dL 10 LDL Cholesterol 60 mg/dL 11 CBC Auto Diff 06/02/2015 [facility] White Blood 6.1 10^3/uL N 4.8-10.8 [address] [facility] [place] [address] [phone] Red Blood Count 3.91 10^6/uL Low 4.0-5.4 Hemoglobin 13.3 g/dL Low 14.0-18.0 Hematocrit 39 % Low 42-52 Mean Corpuscular Volume 100 fL High 80-94 Mean Corpuscular Hemoglobin 34 pg High 27-31 Mean Corpuscular HGB Conc 34 g/dL N 31-36 Red Cell Distribution Width 14 % N 10.5-15 Platelet Count 125 10^3/uL Low 150-450 Mean Platelet Volume 8 um3 N 7.4-10.4 Abs Neutrophils 4.1 10^3/uL N 1.5-7.7 Abs Lymphocytes 1.5 10^3/uL N 1.0-4.8 Abs Monocytes 0.5 10^3/uL N 0-0.8 Abs Eosinophils 0.1 10^3/uL N 0-0.6 Abs Basophils 0 10^3/uL N 0-0.2 Abs Nucleated RBC 0 10^3/uL N Granulocyte % 66.3 % N 38-83 Lymphocyte % 23.7 % Low 25-47 Monocyte % 8.7 % N 1-9 Eosinophil % 0.9 % N 0-6 Basophil % 0.4 % N 0-2 Nucleated Red Blood Cells % 0 N Comp Metabolic Panel 06/02/2015 [facility] Sodium 136 mmol/L N 133-145 [address] [place] [address] [phone] Potassium 4.3 mmol/L N 3.5-5.0 Chloride 104 mmol/L N 101-111 Co2 Carbon Dioxide 25 mmol/L N 22-32 Anion Gap 7 mmol/L N 2-11 Glucose 102 mg/dL High 70-100 Blood Urea Nitrogen 29 mg/dL High 6-24 Creatinine 1.50 mg/dL High 0.67-1.17 BUN/Creatinine Ratio 19.3 N 8-20 Calcium 9.1 mg/dL N 8.6-10.3 Total Protein 7.0 g/dL N 6.4-8.9 Albumin 4.3 g/dL N 3.2-5.2 Globulin 2.7 g/dL N 2-4 Albumin/Globulin Ratio 1.6 N 1-3 Total Bilirubin 0.60 mg/dL N 0.2-1.0 Alkaline Phosphatase 61 U/L N 34-104 Alt 13 U/L N 7-52 Ast 18 U/L N 13-39 Egfr Non- 45.7 N >60 Egfr 58.8 N >60 12 Lipid Profile 06/02/2015 [facility] Triglycerides 132 mg/dL N 13 (Trig/Chol/HDL) [address] [place] [address] [phone] Cholesterol 111 mg/dL N 14 HDL Cholesterol 28.1 mg/dL N 15 LDL Cholesterol 57 mg/dL N 16 Laboratory test 12/28/2013 [facility] Ast 17 U/L 13-39 17 finding [address] [place] [address] [phone] Lipid Profile 12/28/2013 [facility] Triglycerides 103 mg/dL 18 (Trig/Chol/HDL) [address] [place] [address] [phone] Cholesterol 111 mg/dL 19 HDL Cholesterol 30.2 mg/dL 20 LDL Cholesterol 60 mg/dL 21 1 Because ethnic data is not always readily [...] 15-29 5 Kidney failure <15 (or dialysis) 2 Acute inflammation: >10.00 3 Warning: A positive result is not useful for establishing a diagnosis of syphilis. In most situations, such a result may reflect a prior treated infection; a negative result can exclude a diagnosis of syphilis except for incubating or early primary disease. 4 FASTING 5 Normal Range 180 to 914 Indeterminate Range 145 to 180 Deficient Range <145 6 FASTING 7 Because ethnic data is not always readily [...] 15-29 5 Kidney failure <15 (or dialysis) 8 Desirable: <150 Borderline High: 150-199 High: 200-499 Very High: >500 9 Desirable: <200 Borderline High: 200-239 High: >239 10 Low: <40 Desirable: 40-60 High: >60 11 Desirable: <100 Near Optimal: 100-129 Borderline High: 130-159 High: 160-189 Very High: >189 12 Because ethnic data is not always readily [...] 15-29 5 Kidney failure <15 (or dialysis) 13 Desirable <150 Borderline high 150-199 High 200-499 Very High >500 14 Desirable <200 Borderline high 200-239 High >239 15 Low <40 Desirable: 40-60 High: >60 16 Desirable: <100 mg/dL Near Optimal: 100-129 mg/dL Borderline High: 130-159 mg/dL High: 160-189 mg/dL Very High: >189 mg/dL 17 FASTING 18 Desirable <150 Borderline high 150-199 High 200-499 Very High >500 19 Desirable <200 Borderline high 200-239 High >239 20 Low <40 Desirable: 40-60 High: >60 21 Desirable <100 Near Optimal 100-129 Borderline high 130-159 High 160-189 Very High >189 Procedures Date Code Description Status 04/13/2018 02786 Inject/Drain Joint/Bursa Major W/O US Completed 10/10/2017 29843 EKG Tracing & Interpretation Completed 10/04/2017 57076 ECHO Transthoracic, Real-Time 2D With Doppler And Color Completed Flow 10/04/2017 62506 ECHO Transthoracic, Real-Time 2D With Doppler And Color Completed Flow 10/05/2016 12895 EKG Tracing & Interpretation Completed 09/29/2016 59204 Stress Test Completed 09/29/2016 31272 Myocardial Perfusion Imaging Tomographic (Spect) Completed Multiple Studies 09/28/2016 99351 ECHO Transthoracic, Real-Time 2D With Doppler And Color Completed Flow 06/28/2016 02295 EKG Tracing & Interpretation Completed 05/31/2016 56412 ECHO Transthoracic, Real-Time 2D With Doppler And Color Completed Flow 09/04/2015 10091 Pulmonary Stress Test Simple Completed 08/17/2015 93935 Polysomnography Sleep Staging 4+ Parameters W/Cpap Completed 06/03/2015 99193 EKG Tracing & Interpretation Completed 05/19/2015 70693 ECHO Transthoracic, Real-Time 2D With Doppler And Color Completed Flow 05/13/2014 28487 Stress Test Completed 05/13/2014 74710 Myocardial Perfusion Imaging Tomographic (Spect) Completed Multiple Studies 04/26/2014 42679 ECHO Transthoracic, Real-Time 2D With Doppler And Color Completed Flow 04/26/2014 31446 ECHO Transthoracic, Real-Time 2D With Doppler And Color Completed Flow 04/19/2014 44773 EKG Tracing & Interpretation Completed 08/07/2013 [id number] Colonoscopy Completed 07/06/2013 90876 ECHO Transthoracic, Real-Time 2D With Doppler And Color Completed Flow 12/25/2012 69631 EKG Tracing & Interpretation Completed 08/19/2009 [id number] Colonoscopy Completed 08/29/2008 19188 EKG, Interpretation Only Completed 08/29/2008 50287 EKG, Interpretation Only Completed 08/10/2005 [id number] Colonoscopy Completed Encounters Type Date Location Provider Dx Diagnosis Office Visit 07/25/2018 Pulmonology And Yanira Wise, R06.02 Shortness of 9:15a [facility] Of [facility] dempsey Rn Lactation G47.33 Obstructive sleep apnea (adult) (pediatric) E66.09 Other obesity due to excess calories Office Visit 05/25/2018 10:15a Orthopedic Calvin Young M75.42 Impingement Services Of syndrome of left C.M.A. shoulder M19.012 Primary osteoarthritis, left shoulder Office Visit 04/18/2018 10:45a Pulmonology And Yanira J44.9 Chronic Sleep Services Of MD Billie obstructive [facility] pulmonary disease, unspecified G47.33 Obstructive sleep apnea (adult) (pediatric) J98.4 Other disorders of lung E66.09 Other obesity due to excess calories Office Visit 04/13/2018 2:30p Orthopedic Calvin Young, M25.512 Pain in left Services Of shoulder C.M.A. S46.012A Strain of musc/tend the rotator cuff of left shoulder, init Office Visit 04/07/2018 [facility] Ian Caballero M54.9 Dorsalgia, 11:00a - Sherman Meadows M.D. unspecified Office Visit 03/31/2018 [facility] Orion Alston G31.84 Mild cognitive 2:45p Clinic maura Bowman so M.D. stated Office Visit 03/20/2018 [facility] K43.2 Incisional 11:30a Derian Nina MD, hernia without FACS obstruction or gangrene Office Visit 03/13/2018 [facility] Ian Caballero R10.32 Left lower 3:20p - Sherman Meadows M.D. quadrant pain K43.9 Ventral hernia without obstruction or gangrene Office Visit 02/03/2018 10:20a [facility] Queta Sosa E. G31.84 Mild cognitive Medicine Ceferino Meadows M.D. impairment, so [place] stated I10 Essential (primary) hypertension E78.2 Mixed hyperlipidemia R47.01 Aphasia Office Visit 01/24/2018 10:30a Pulmonology And Yanira J44.9 Chronic [facility] Billie obstructive Rn Lactation pulmonary disease, unspecified G47.33 Obstructive sleep apnea (adult) (pediatric) J98.4 Other disorders of lung E66.09 Other obesity due to excess calories Office Visit 10/10/2017 [facility] Aba Martinez I77.810 Thoracic aortic 9:45a [facility] Theresa Villasenor, ectasia FAC, [facility] Office Visit 09/30/2017 [facility] Orion Alston G31.84 Mild cognitive 2:30p Clinic maura Bowman so M.D. stated G47.33 Obstructive sleep apnea (adult) (pediatric) Office Visit 07/27/2017 9:45a Pulmonology And Yanira G47.33 Obstructive sleep Sleep Services Of MD Billie apnea (adult) [facility] (pediatric) J44.9 Chronic obstructive pulmonary disease, unspecified J98.4 Other disorders of lung E66.01 Morbid (severe) obesity due to excess calories Z68.28 Body mass index (BMI) 28.0-28.9, adult Office Visit 07/07/2017 10:30a Pulmonology And Yanira G47.33 Obstructive sleep Sleep Services Of MD Billie apnea (adult) [facility] (pediatric) J44.9 Chronic obstructive pulmonary disease, unspecified E66.09 Other obesity due to excess calories J98.4 Other disorders of lung Office Visit 06/15/2017 2:20p [facility] Internal Ian Caballero 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 by [facility] - Theresa Meadows disease of [place] coronary artery w/o ang pctrs I73.9 Peripheral vascular disease, unspecified I10 Essential (primary) hypertension E78.2 Mixed hyperlipidemia J44.9 Chronic obstructive pulmonary disease, unspecified G47.33 Obstructive sleep apnea (adult) (pediatric) Z85.038 Personal history of malignant neoplasm of large intestine K21.9 Gastro-esophageal reflux disease without esophagitis Z23 Encounter for immunization Office Visit 06/07/2017 1:45p Pulmonology And Yanira G47.33 Obstructive sleep Sleep Services Of MD Billie apnea (adult) [facility] (pediatric) J44.9 Chronic obstructive pulmonary disease, unspecified Office Visit 01/25/2017 3:00p [place] Alston G31.84 Mild cognitive Services Of Derian Bowman M.D. impairment, so stated I65.23 Occlusion and stenosis of bilateral carotid arteries Office Visit 11/04/2016 10:00a Pulmonology And Yanira J43.9 Emphysema, Sleep Services Of MD Billie unspecified [facility] G47.33 Obstructive sleep apnea (adult) (pediatric) J98.4 Other disorders of lung Office Visit 10/05/2016 1:30p [facility] Aba Martinez I25.10 Athscl heart Of Derian Villasenor M.D., disease of [place] FACC, FASNC coronary artery w/o ang pctrs Office Visit 06/28/2016 10:30a [facility] Aba Martinez I25.9 Chronic ischemic Of Derian Villasenor M.D., heart disease, FACC, FASNC unspecified Office Visit 05/04/2016 10:00a Pulmonology And Yanira G47.33 Obstructive sleep Sleep Services Of MD Billie apnea (adult) [facility] (pediatric) J43.9 Emphysema, unspecified Office Visit 11/03/2015 10:00a Pulmonology And Yanira G47.33 Obstructive sleep Sleep Services Of MD Billie apnea (adult) [facility] (pediatric) R06.02 Shortness of breath Office Visit 09/05/2015 9:30a Pulmonology And Yanira G47.33 Obstructive sleep Sleep Services Of MD Billie apnea (adult) [facility] (pediatric) J43.9 Emphysema, unspecified J98.4 Other disorders of lung Office Visit 07/03/2015 8:45a Pulmonology And Yanira 786.05 Shortness Of Sleep Services Of MD Billie Breath [facility] 780.57 Unspecified Sleep Apnea Office Visit 06/03/2015 Rachell Martinez 414.00 Coronary 1:00p Cardiology Of Theresa Villasenor, Atherosclerosis [facility] FACC, FASNC Unspec Type Vessel [place]ayp/Graft Office Visit 05/15/2014 Miguel Martinez 414.9 Ischemic Heart 12:30p Cardiology Theresa Villasenor, Disease Chronic FACC, FASNC Unspec 786.09 Dyspnea & Respiratory Abnormalities Other 443.9 Peripheral Vascular Disease Unspec Office Visit 04/19/2014 11:30a [facility] Aba Martinez 414.9 Ischemic Heart Theresa Villasenor, Disease Chronic FACC, FASNC Unspec Office Visit 07/13/2013 12:00p [facility] Aba Martinez 414.9 Ischemic Heart Of [facility] Theresa Villasenor, Disease Chronic FACC, FASNC Unspec Office Visit 12/25/2012 10:15a [facility] Aba Martinez 414.9 Ischemic Heart Of [facility] Theresa Villasenor, Disease Chronic FACC, FASNC Unspec Plan of Treatment Future Appointment(s):04/06/2019 3:15 pm - Orion Bowman M.D. at [facility] [id number]/03/2019 11:40 am - Ian Meadows M.D. at [facility] Internal Medicine - [id number]/25/2019 9:15 am - Yanira Wise MD at Pulmonology And Sleep Services Of [facility]
--- OUTSIDE RECORDS SUMMARY | 2018-10-11 06:44 | XMS REPORT | Continuity of Care Document ---
:1940 External Reference #:[id number] Author Name Yaneth Sanchez Care Team Providers Name Role Phone Ian Meadows III, MD Primary Care Physician Unavailable Payers Type Date Identification Numbers Payment Provider Subscriber Effective: Policy Number: [id number] Medicare Blue Ppo Rick Rangel 2012 Group Number: [id number] [address] [address] PayID: [id number] [place] [address] Advance Directives Description No Information Available Problems [...] Thoracic aortic ectasia Aba Villasenor M.D., Active [facility], [facility] Onset: 05/25/2018 Disorder of shoulder Calvin Young [...] Unknown Marital Status Lives With Occupation Retired Tobacco Use Start: Unknown End: Former Cigarette Smoker Unknown Smoking Status Reviewed: 10/03/18 Former Cigarette Smoker ETOH Use Rarely consumes [...] Tablets DR 40mg 180ta Take One Ian EDelfina Sodium 2018 bs Tablet By Antonio Meadows Twice M.DDelfina Daily Losartan 05/06/ Active Tablets 50mg 90tab 1 by mouth Ian Antonio. Potassium 2015 s every day Theresa Meaodws Nitrostat 07/16/ Active Tablets 0.4mg 1bott one sl q5min Aba 2012 Sub le up to 3 Juan doses as [place] needed, if M.D., no relief FAC, after 3 call FASGA 911 Metoprolol 04/16/ Active Tablets ER 100mg 90tab 1 by mouth Aba Succinate ER 2012 24HR s every day Juan Villasenor M.D., FAC, FASGA Atorvastatin / Active Tablets 40mg 90tab 1 by mouth Ian Caballero Calcium 0000 s every day travis Meadows M.D. appointment Aspir-81 00/00/ Active Tablets DR 81mg 1 by mouth Unknown 0000 every day Tramadol /00/ Active Tablets 50mg q4 hours prn Alvarado, 0000 Olivia, FILTER TIP INSPECTOR-BC Nitrolingual 07/13/ Hx Solution 0.4mg/Spr 1unit prn q `5 min Aba Pumpspray 2012 - ay s chest pain; Juan 07/16/ call 911 if Villasenor, 2012 chest pain M.D., after 3 FACC, sprays FASNC Plavix /00/ Hx Tablets 75mg 90tab 1 by mouth Unknown 0000 - s every day 2016 Protonix 00/ Hx Tablets DR 40mg 180ta 1 by mouth Ian EDelfina 0000 - bs twice a day Dori 06/30/ M.DDelfina 2018 Lisinopril /00/ Hx Tablets 10mg 90tab 1 by mouth Unknown 0000 - s every day 2015 Finasteride 00/ Hx Tablets 5mg 1 by mouth Unknown 0000 - every day 2016 Tramadol HCL 00/ Hx Tablets 50mg 60tab 1-2 tablets Ian E. 0000 - s every Dori, 04/06/ hours as M.D. 2018 needed Vesicare 00/00/ Hx Tablets 5mg 1 by mouth Unknown 0000 - every day 2017 Acetaminophen /00/ Hx Capsules 500mg 1-2 caps by Unknown Extra Strength 0000 - mouth every 09/29/ 8 hours as 2017 needed for pain. do [...] 1 04/07/ tab po as 2018 needed [place] 00/00/ Hx Tablets 5-325mg 15tab two tabs by Ian E. 0000 - s mouth every Dori, 04/17/ [...] Dose Up M.D., To 40 FAC, Shellie FASNC Inj, 05/13/ Administered Injection Aba Martinez Regadenoson, 0.1 2013 Villasenor, MG M.D., FACC, FASNC Technetium TC 05/13/ Administered Injection Aba Martinez 99M Tetrofosmin, 2013 Villasenor, Per Unit Dose Up M.D., To 40 FAC, Shellie MCLAUGHLINGA Immunizations CPT Code Status Date Vaccine Lot # [id number] Given 10/03/2018 Tdap - Tetanus/Diptheria/Acellular Pertussis [id number] Given 10/03/2018 Influenza Virus Vaccine, Quadrivalent, Split, [id number] Preservative Free 61426 Given 08/31/2017 Influenza Virus Vaccine, Quadrivalent, Split, [id number] Preservative Free 87168 Given 06/15/2017 Pneumococcal Conjugate Vaccine 13 Valent For [id number] Intramuscular Use [id number] Given 11/03/2015 Fluvirin Im 3Yrs And Older 21343 Given 09/05/2015 Influenza Virus 3Yrs & Over 84462 Given 10/31/2005 Pneumonia Vaccine Vital Signs Date Vital Result Comment 10/03/2018 10:26am Height 62.5 inches 5'2.50" Weight [...] Date Facility Test Result H/L Range Note Laboratory test 02/06/2018 [facility] C Reactive < 1.00 mg/L N < 5.[address] [place] [address] [phone] Erythrocyte Sed Rate 28 mm/Hr N 0-40 Syphillis Igg W/Reflex RPR Nonreactive Nonreactive 2 TSH (Thyroid Stim Horm) 2.57 mcIU/mL N 0.34-5.60 3 Vitamin B12 And 02/06/2018 [facility] Vitamin B12 700 pg/mL N 180-914 4 Folate Serum [address] [place] [address] [phone] Folic Acid (Folate) 14.08 ng/mL >3.99 5 Comp Metabolic Panel 02/06/2018 [facility] Sodium 140 mmol/L N 139-145 [address] [place] [address] [phone] Potassium 4.6 mmol/L N 3.5-5.0 Chloride 106 [...] >60 Egfr 52.3 >60 6 Lipid Profile 02/06/2018 [facility] Triglycerides 137 mg/dL 7 (Trig/Chol/HDL) [address] [place] [address] [phone] Cholesterol 117 mg/dL 8 HDL Cholesterol 29.3 mg/dL 9 LDL Cholesterol 60 mg/dL 10 Laboratory test 02/06/2018 [facility] PSA Diagnostic 0.697 N 0 -4.[address] ng/[place] [address] [phone] CBC Auto Diff 02/06/2018 [facility] White Blood 4.8 N 3.5- 10.[address] Count 10^3/[place] [address] [phone] Red Blood Count 3.31 10^6/uL Low 4.0-5.4 [...] Cells % 0 Comp Metabolic Panel 06/02/2015 [facility] Sodium 136 mmol/L N 133-[address] [place] [address] [phone] Potassium 4.3 mmol/L N 3.5-5.0 Chloride 104 [...] 45.7 N >60 Egfr 58.8 N >60 11 Lipid Profile 06/02/2015 [facility] Triglycerides 132 mg/dL N 12 (Trig/Chol/HDL) [address] [place] [address] [phone] Cholesterol 111 mg/dL N 13 HDL Cholesterol 28.1 mg/dL N 14 LDL Cholesterol 57 mg/dL N 15 CBC Auto Diff 06/02/2015 [facility] White Blood 6.1 10^3/uL N 4.8-10.[address] [place] [address] [phone] Red Blood Count 3.91 10^6/uL Low 4.0-5.4 [...] Nucleated Red Blood Cells % 0 N Laboratory test 12/28/2013 [facility] Ast 17 U/L 13-39 16 [address] [place] [address] [phone] Lipid Profile 12/28/2013 [facility] Triglycerides 103 mg/dL 17 (Trig/Chol/HDL) [address] [place] [address] [phone] Cholesterol 111 mg/dL 18 HDL Cholesterol 30.2 [...] High >189 Procedures Date Code Description Status 04/13/201867143 Inject/Drain Joint/Bursa Major W/O US Completed 10/10/2017 51938 EKG Tracing & Interpretation Completed 10/04/2017 42838 ECHO Transthoracic, Real-Time 2D With Doppler And Color Completed Flow 10/04/2017 89144 ECHO Transthoracic, Real-Time 2D With Doppler And Color Completed Flow 10/05/2016 28391 EKG Tracing & Interpretation Completed 09/29/2016 34427 Stress Test Completed 09/29/2016 77261 Myocardial Perfusion Imaging Tomographic (Spect) Completed Multiple Studies 09/28/2016 41776 ECHO Transthoracic, Real-Time 2D With Doppler And Color Completed Flow 06/28/2016 02860 EKG Tracing & Interpretation Completed 05/31/2016 60640 ECHO Transthoracic, Real-Time 2D With Doppler And Color Completed Flow 09/04/2015 17708 Pulmonary Stress Test Simple Completed 08/17/2015 87037 Polysomnography Sleep Staging 4+ Parameters W/Cpap Completed 06/03/2015 93992 EKG Tracing & Interpretation Completed 05/19/2015 74225 ECHO Transthoracic, Real-Time 2D With Doppler And Color Completed Flow 05/13/2014 71504 Stress Test Completed 05/13/2014 96721 Myocardial Perfusion Imaging Tomographic (Spect) Completed Multiple Studies 04/26/2014 08878 ECHO Transthoracic, Real-Time 2D With Doppler And Color Completed Flow 04/26/2014 34353 ECHO Transthoracic, Real-Time 2D With Doppler And Color Completed Flow 04/19/2014 41969 EKG Tracing & Interpretation Completed 07/06/2013 31937 ECHO Transthoracic, Real-Time 2D With Doppler And Color Completed Flow 12/25/2012 63597 EKG Tracing & Interpretation Completed 08/19/2009 [id number] Colonoscopy Completed 08/29/2008 41976 EKG, Interpretation Only Completed 08/29/2008 08304 EKG, Interpretation Only Completed 08/10/2005 [id number] Colonoscopy Completed Encounters Type Date Location Provider Dx Diagnosis Office Visit 07/25/2018 [facility] Yanira Billie, R06.02 Shortness of 9:15a 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 shoulder M19.012 Primary osteoarthritis, left shoulder Office Visit 04/18/2018 10:45a Pulmonology And Yanira J44.9 Chronic Sleep Services Of MD Billie obstructive [facility] pulmonary disease, unspecified G47.33 Obstructive sleep apnea (adult) (pediatric) J98.4 Other disorders of lung E66.09 Other obesity due to excess calories Office Visit 04/13/2018 2:30p Orthopedic Rachaeljosefa Hector, M25.512 Pain in left Services Of shoulder C.M.ADelfina S46.012A Strain of musc/tend the rotator cuff of left shoulder, init Office Visit 04/07/2018 [facility] Internal Medicine Ian Caballero M54.9 Dorsalgia, 11:00a - Sherman Meadows M.D. unspecified Office Visit 03/31/2018 [facility] Orion Alston G31.84 Mild cognitive 2:45p Clinic maura Bowman, so MDelfinaDDelfina stated Office Visit 03/20/2018 [facility] K43.2 Incisional 11:30a Derian Nina MD, hernia without FACS obstruction or gangrene Office Visit 03/13/2018 [facility] Internal Medicine Ian Caballero R10.32 Left lower 3:20p - Sherman Meadows M.D. quadrant pain K43.9 Ventral hernia without obstruction or gangrene Office Visit 02/03/2018 10:20a [facility] Internal Ian Caballero G31.84 Mild cognitive Medicine - Theresa Meadows impairment, so Sherman stated I10 Essential (primary) hypertension E78.2 Mixed hyperlipidemia R47.01 Aphasia Office Visit 01/24/2018 10:30a Pulmonology And Yanira J44.9 Chronic Sleep Services Of MD Billie obstructive [facility] pulmonary disease, unspecified G47.33 Obstructive sleep apnea (adult) (pediatric) J98.4 Other disorders of lung E66.09 Other obesity due to excess calories Office Visit 10/10/2017 [facility] Aba Martinez I77.810 Thoracic aortic 9:45a Derian Villasenor M.D., ectasia FACC, FASGA Office Visit 09/30/2017 [facility] Orion Alston G31.84 Mild cognitive 2:30p Clinic maura Bowman, so MDelfinaDDelfina stated G47.33 Obstructive sleep apnea (adult) (pediatric) Office Visit 07/27/2017 9:45a Pulmonology And Yanira G47.33 Obstructive sleep Sleep Services Of MD Billie apnea (adult) [facility] (pediatric) J44.9 Chronic obstructive pulmonary disease, unspecified J98.4 Other disorders of lung E66.01 Morbid (severe) obesity due to excess calories Z68.28 Body mass index (BMI) 28.0-28.9, adult Office Visit 07/07/2017 10:30a Pulmonology And Yanira G47.33 Obstructive sleep Sleep Services Of MD Billie apnea (adult) [facility] (pediatric) J44.9 Chronic obstructive pulmonary disease, unspecified E66.09 Other obesity due to excess calories J98.4 Other disorders of lung Office Visit 06/15/2017 2:20p [facility] Internal Ian Caballero I25.10 [facility] Meadows M.D. disease of [place] coronary artery w/o ang pctrs I73.9 Peripheral [...] Sleep Services Of MD Billie apnea (adult) [facility] (pediatric) J44.9 Chronic obstructive pulmonary disease, unspecified Office Visit 01/25/2017 3:00p [facility] Heaven Alston G31.84 Mild cognitive Services Of Derian Bowman M.D. impairment, so stated I65.23 Occlusion and stenosis of bilateral carotid arteries Office Visit 11/04/2016 10:00a Pulmonology And Yanira J43.9 Emphysema, Sleep Services Of MD Billie unspecified [facility] G47.33 Obstructive sleep apnea (adult) (pediatric) J98.4 Other disorders of lung Office Visit 10/05/2016 1:30p [facility] Aba Martinez I25.10 Athscl heart Of Derian Villasenor M.D., disease of [place] FACC, FASNC coronary artery w/o ang pctrs Office Visit 06/28/2016 10:30a [facility] Aba Martinez I25.9 Chronic ischemic Of Derian Villasenor M.D., heart disease, FACC, FASNC unspecified Office Visit 05/04/2016 10:00a Pulmonology And Yanira G47.33 Obstructive sleep Sleep Services Of MD Billie apnea (adult) [facility] (pediatric) J43.9 Emphysema, unspecified Office Visit 11/03/2015 10:00a Pulmonology And Yanira G47.33 Obstructive sleep Sleep Services Of MD Billie apnea (adult) [facility] (pediatric) R06.02 Shortness of breath Office Visit 09/05/2015 9:30a Pulmonology And Yanira G47.33 Obstructive sleep Sleep Services Of MD Billie apnea (adult) [facility] (pediatric) J43.9 Emphysema, unspecified J98.4 Other disorders of lung Office Visit 07/03/2015 8:45a Pulmonology And Yanira 786.05 Shortness Of Sleep Services Of MD Billie Breath [facility] 780.57 Unspecified Sleep Apnea Office Visit 06/03/2015 [facility] Abacarlos Martinez 414.00 Coronary 1:00p Cardiology Of Theresa Villasenor, Atherosclerosis [facility] FACC, FASNC Unspec Type Vessel [place]/Graft Office Visit 05/15/2014 [facility] Abacarlos Martinez 414.9 Ischemic Heart 12:30p Cardiology Theresa Villasenor, Disease Chronic FACC, FASNC Unspec 786.09 Dyspnea & Respiratory Abnormalities Other 443.9 Peripheral Vascular Disease Unspec Office Visit 04/19/2014 11:30a [facility] Aba Martinez 414.9 Ischemic Heart Theresa Villasenor, Disease Chronic FACC, FASNC Unspec Office Visit 07/13/2013 12:00p [facility] Aba Martinez 414.9 Ischemic Heart Of [facility] Theresa Villasenor, Disease Chronic FACC, FASNC Unspec Office Visit 12/25/2012 10:15a [facility] Aba Martinez 414.9 Ischemic Heart Of [facility] Theresa Villasenor, Disease Chronic FACC, FASNC Unspec Plan of Treatment Future Appointment(s):04/03/2019 11:40 am - Ian Meadows M.D. at [facility] Internal Medicine - [id number]/07/2018 10:30 am - Orion Bowman M.D. at [facility] [id number]/22/2019 9:15 am - Yanira Wise MD at Pulmonology And Sleep Services Of [facility]10/03/2018 - Ian Meadows M.D.Z00.00 Encounter for general adult medical examination without abnoComments:Tdap and flu shot today; discussed the new shingles vaccine. (+) dental, eye exams. ? due for another colon exam this year after a polyp found in 2012; will check with GII10 Essential (primary) hypertensionComments:BP good today; labs in January stable, but BUN and creat up a bit- repeat BMP nowFollow up:6 months or prnE78.2 Mixed hyperlipidemiaComments:On RxI25.10 Atherosclerotic heart disease of [place] coronary artery withComments:No cardiac c/o; due for his yearly cardiology recheck, and per-op eval for possible hernia surgery also neededReferral:Aba Villasenor MD, FACC, FASNC, Cardiovsclr AnpessxA03.9 Peripheral vascular disease, unspecifiedComments:Follows with vasc surgery; recnet YOHAN test goodK21.9 Gastro-esophageal reflux disease without esophagitisComments:No heartbutn sx, but pt reports new sx of mid abd pains/fullness, better after passing gas/belching or moving bowels. Stools chronically somewhat irregular with occ constipatuion, but no changes noted. Pt ? due for a colon exam this year; will check KUB for fecal residue. CBC in January with Hgb of 11.7 and macrocytic indices. B12 normal. Repeat CBC entered.K43.9 Ventral hernia without obstruction or gangreneComments:Incisional/ventral hernia; pt seen by surgery abd repair discussed if pt cleared by hsbeuyazqqO11.84 Mild cognitive impairment, so statedComments:Follows with neurology; no acute changes. Labs, MRI in January okG47.33 Obstructive sleep apnea (adult) (pediatric)Comments:On CPAP and following with pulmonary
[2018-10-11] MEDS ORDERED: NS 0.9% 1000 ML* 1,000 ML IV ONE ×2 (07:02→12:47)
--- NOTE | 2018-10-11 07:11 | ED ---
Abdominal Pain/Male - HPI Summary HPI Summary: 77 year old male presents with a 1 week history of right sided abdominal pain. Patient has history of colon cancer treated with a left hemicolectomy in 1998. States pain began about 1 week ago, he was seen by his PCP who diagnosed him with constipation. Patient started milk of magnesia every other day with minimal relief. Patient was given fleets enema by his last night. Patient had loose BM at 2:00am and felt much better. States his pain was initially 8/10 but is currently a 3/10. States the pain feels like pressure in his right abdomen and is directly located over the site of the hemicolectomy. Denies fevers, changes in urination, new back pain, CP, SOB, headaches, blood in stool , black tarry stools, and dizziness. Endorses mild nausea, diarrhea, and early satiety. States he had a piece of toast this morning with a 1/2 cup of coffee and felt too full to finish. Also endorses has not been taking his medications (HTN and diabetes medications) over the last few days as he is concerned with his abdominal pain and is also sometimes "foregetful." states patient has not been eating and drinking well over the past week. Hx of SBO following his hemicolectomy. Has a colonscopy due early this year. - History of Current Complaint Chief Complaint: EDAbdPain Stated Complaint: ABD PAIN Time Seen by Provider: 10/11/18 06:45 Hx Obtained From: Patient, Family/Casting Trucker Onset/Duration: Gradual Onset, Lasting Days, Still Present Timing: Constant, Lasting Days Severity Initially: Severe Severity Currently: Mild Pain Intensity: 2 Pain Scale Used: 0-10 Numeric Location: Discrete At: RUQ, Discrete At: RLQ Radiates: No Character: Other: - pressure Aggravating Factor(s): Nothing Alleviating Factor(s): Bowel Movement Associated Signs And Symptoms: Positive: Decreased Appetite, Nausea, Diarrhea. Negative: Chest Pain, Back Pain, Blood in Stool, Urinary Symptoms - Allergies/Home Medications Allergies/Adverse Reactions: Allergies Allergy/AdvReac Type Severity Reaction Status Date / Time codeine Allergy Rash Verified 10/11/18 07:02 lisinopril Allergy SEVERE Verified 10/11/18 07:02 COUGHING carisoprodol [From Soma] AdvReac Severe Dizziness Verified 10/11/18 07:02 oxycodone AdvReac GI Upset Verified 10/11/18 07:02 PMH/Surg Hx/FS Hx/Imm Hx Endocrine/Hematology History: Reports: Hx Anemia - DUE TO MEDS Denies: Hx Diabetes, Hx Thyroid Disease Cardiovascular History: Reports: Hx Angina - STATES NONE SINCE STNETS INSERTED 2011, Hx Coronary Artery Disease - 7 STENTS, 2011; DR TONY, Hx Deep Vein Thrombosis - had embolectomy, Hx Hypertension - ON MEDS, Hx Peripheral Vascular Disease - 07/2019 LT FEMERAL ARTERY BYPASS SURGERY, Other Cardiovascular Problems /Disorders - 7 stents placed in 2011 Denies: Hx Pacemaker/ICD Respiratory History: Reports: Hx Chronic Obstructive Pulmonary Disease (COPD), Hx Sleep Apnea, Other Respiratory Problems/Disorders - 50 YR SMOKER Denies: Hx Asthma GI History: Denies: Hx Ulcer, Other GI Disorders History: Reports: Other Problems/Disorders - enlarged prostate Denies: Hx Renal Disease Musculoskeletal History: Reports: Hx Arthritis - GENERALIZED, Hx Back Problems - low back Sensory History: Reports: Hx Cataracts - BILATERAL, Hx Contacts or Glasses - reading glasses, Hx Glaucoma - Hx OF, [id number] Denies: Hx Hearing Aid Opthamlomology History: Reports: Hx Cataracts - BILATERAL, Hx Contacts or Glasses - reading glasses, Hx Glaucoma - Hx OF, [id number] Neurological History: Comment Only: Other Neuro Impairments/Disorders - PAIN CLINIC PT. Psychiatric History: Denies: Hx Panic Disorder - Cancer History Cancer Type, Location and Year: COLON CA Hx Chemotherapy: No Hx Radiation Therapy: No - Surgical History Surgery Procedure, Year, and Place: 1956-appendectomy,. 03/1999-Hemicollectomy w /end to end anastamosis,. 12/[id number]-[facility]ex-Jkx bypass right to left,. 03/2006- Thrombolectomy & stent placement in LEFT fem graft site, Cardiac Cath-February 20 & 2011 with 5 stents in RT coronary artery(RESOLUTE INTEGRITY PER MRI SAFETY CONDITIONAL 5 OK FOR 1.5 OR 3T), Cardiac cath February 25 2012 with 2 stents in LEFT circumflex artery (RESOLUTE INTEGRITY PER MRI SAFEY CONDITIONAL 5 OK FOR 1.5 OR 3T). CATARACTS. Lt GROIN - PSUEDOANEURYSM ( OP REPORT IN W/ PREV MRI - PACS DACRON USED NO METAL CLIPS OR COILS)- 07/2016 - [facility] (W/ DR HANDY - VASCULAR SURG - [phone]). TURP - 10/2016 Hx Anesthesia Reactions: No Infectious Disease History: No Infectious Disease History: Denies: Hx Clostridium Difficile, Hx Hepatitis, Hx Human Immunodeficiency Virus (HIV), Hx of Known/Suspected MRSA, Hx Shingles, Hx Tuberculosis, Hx Known/ Suspected VRE, Hx Known/Suspected VRSA, History Other Infectious Disease, Traveled Outside the [place] in Last 30 Days - Social History Alcohol Use: Rare Alcohol Amount: 1x month Substance Use Type: Reports: None Smoking Status (MU): Former Smoker Type: Cigarettes Amount Used/How Often: 1-2 PPD, THEN DOWN TO 1/2PPD 50 YRS Have You Smoked in the Last Year: No Review of Systems Negative: Fever, Chills, Fatigue Negative: Sore Throat, Ear Ache, Nasal Discharge Negative: Chest Pain Negative: Shortness Of Breath Positive: Abdominal Pain, Diarrhea, Nausea. Negative: Vomiting Negative: hematuria, pain, urgency Negative: Headache, Weakness, Numbness All Other Systems Reviewed And Are Negative: Yes Physical Exam Vital Signs On Initial Exam: Initial Vitals Temp Pulse Resp BP Pulse Ox 99 F 113 20 153/93 94 10/11/18 06:39 10/11/18 06:39 10/11/18 06:39 10/11/18 06:39 10/11/18 06:39 Diagnostics - Vital Signs Vital Signs Temp Pulse Resp BP Pulse Ox 10/11/18 06:39 99 F 113 20 153/93 94 - Laboratory Result Diagrams: 10/11/18 07:37 10/11/18 07:37 Lab Statement: Any lab studies that have been ordered have been reviewed, and results considered in the medical decision making process. - CT No standard instances CT Interpretation Completed By: Radiologist - IMPRESSION: 1. THERE IS PERIDUODENAL INFLAMMATORY CHANGE. 2. THERE IS A SOFT TISSUE DENSITY WITHIN THE WALL OF THE DUODENUM AT THE SECOND STAGE OF IS OF UNCLEAR ETIOLOGY.. 3. THERE IS A FILLING DEFECT WITHIN THE FUNDUS OF THE STOMACH WHICH MAY REPRESENT ARTIFACT FROM FOOD VERSUS AN ENDOPHYTIC POLYPOID MUCOSAL LESION OF THE STOMACH. 4. GIVEN THE ABOVE FINDINGS, CONSIDER CORRELATION WITH DIRECT VISUALIZATION. 5. THERE IS ATHEROSCLEROTIC DISEASE OF THE ABDOMINAL AORTA AND ITS BRANCHES, WITH RIGHT GREATER THAN LEFT OSTIAL STENOSIS OF THE RENAL ARTERIES. THE RIGHT KIDNEY IS SMALLER AND HYPOPERFUSED COMPARED TO THE LEFT WHICH SUGGEST A FLOW-LIMITING STENOSIS. 6. FATTY INFILTRATION OF THE LIVER. Abdominal Pain Fem Course/Dx - Course Course Of Treatment: 77 year old male with history of colon cancer and left hemicolectomy presents to ED with right sided abdominal pain x 1 week. Patient states pain was initially severe, improved this morning after loose BM at 0200. CT results show: (see above). Discussed case with Dr. Esparza who agrees to see him in the ED. She suggests endoscopy and observation or admission. Patient remains comfortable and declines pain medication. While in the ED, he is given 2 L fluids. - Diagnoses Differential Diagnosis/HQI/PQRI: Appendicitis, Pancreatitis Provider Diagnoses: Right lower quadrant pain Is Visit Related: No - Provider Notifications Discussed Care Of Patient With: Tanya Esparza - patient will perform endoscopy in ED Instructed by Provider To: Will See In ED Discharge - Sign-Out/Discharge Documenting (check all that apply): Patient Departure - Discharge Plan Condition: Good Disposition: ADMITTED TO [facility] - Billing Disposition and Condition Condition: GOOD Disposition: Admitted to [facility]
[2018-10-11 07:50] LABS: ABS Basophils 0 10^3/ul (0-0.2); ABS Eosinophils 0 10^3/ul (0-0.6); ABS Lymphocytes 0.7 10^3/ul (1.0-4.8); ABS Monocytes 0.9 10^3/ul (0-0.8); ABS Neutrophils 7.6 10^3/ul (1.5-7.7); ABS Nucleated RBC 0 10^3/ul; Eosinophil % 0.1 %; Hematocrit 34 % (42-52); Hemoglobin 11.7 g/dl (14.0-18.0); Mean Corpuscular HGB Conc 34 g/dl (31-36); Mean Corpuscular Hemoglobin 35 pg (27-31); Mean Corpuscular Volume 100 fL (80-94); Mean Platelet Volume 8.4 fL (7.4-10.4); Nucleated Red Blood Cells % 0; Platelet Count 109 10^3/ul (150-450); Red Blood Count 3.39 10^6/ul (4.00-5.40); Red Cell Distribution Width 14 % (10.5-15); White Blood Count 9.3 10^3/ul (3.5-10.8)
[2018-10-11 08:03] LABS: INR 1.14 (0.77-1.02)
[2018-10-11 08:07] LABS: Albumin 3.9 g/dL (3.2-5.2); Albumin/Globulin Ratio 1.3 (1-3); BUN/Creatinine Ratio 19.6 (8-20); C Reactive Protein 98.04 mg/L (<8.01); Calcium 8.7 mg/dL (8.6-10.3); Globulin 3.1 g/dL (2-4); Magnesium 2.1 mg/dL (1.9-2.7); Potassium 4.2 mmol/L (3.5-5.0); Total Bilirubin 0.9 mg/dL (0.2-1.0)
[2018-10-11] MEDS ORDERED: Iodixanol* (CONTRAST) 320 MG/ML 100 ML SDV IV ONE (08:40)
[2018-10-11] MEDS ORDERED: Midazolam* 1 MG/ML 10 ML VIAL (10 MG) ONE (15:36)
[2018-10-11] MEDS ORDERED: fentaNYL* 50 MCG/ML 2 ML VIAL (100 MCG VIAL) ONE (15:36)
[2018-10-11] MEDS ORDERED: NS 0.9% 1000 ML* 1,000 ML IV SCH (17:30)
[2018-10-11] MEDS ORDERED: traMADol TAB* 50 MG PO PRN (17:33)
--- NOTE | 2018-10-11 20:23 | CONS ---
GASTROENTEROLOGY CONSULT NOTE: DATE OF CONSULT: 10/11/18 REQUESTING PROVIDER: ED. INDICATIONS: Abdominal pain and abnormal findings. HISTORY OF PRESENT ILLNESS: Mr. Rangel is a chepe 77-year-old gentleman with a history of colon cancer, status post left hemicolectomy in 1998; CAD, status post stenting; hypertension; hyperlipidemia; COPD; LELA; vascular disease; and possible remote peptic ulcer disease, who presents to the ER with abdominal pain. Mr. Rangel has been in his usual state of health until the last few months when he has noticed increased abdominal fullness, firmness, and distention. His notes that his upper abdomen, in particular, seems to have increased. More recently, he has had some increased constipation. He has been given milk of magnesia with some improvement in bowel movements. However, he has felt that the last few days, he has only been passing liquids stools after the milk of mag and feels there is an incomplete sense of evacuation. He has not been eating much over the last week or so. His mentions that he will eat a sandwich all day long. He has lost 2 pounds in the last week or so. The abdominal pain increased significantly this morning with palpation in the upper abdomen prompting presentation to the ER for evaluation. In the ER, Mr. Rangel's vital signs have been notable for a temp of 99.2 and tachycardia on arrival of 113, which has resolved throughout the day. Laboratory evaluation notable for hemoglobin of 11.7, hematocrit of 34, platelet count 109. Sodium of 133, BUN 28, creatinine 1.43, elevated CRP, and elevated lipase to 2339. A CT of abdomen and pelvis was performed. This demonstrated periduodenal inflammatory change and a soft tissue density within the wall of the duodenum at the second stage. Also noted was a filling defect within the fundus of the stomach, which may represent artifact versus mucosal lesion. Fatty infiltration in the liver also noted. Pancreas, gallbladder, and biliary system appeared normal. GI consulted given the concern for a gastric and/or duodenal mass. On interview, Mr. Rangel said his abdominal pain seems to have improved throughout the day, although he has been NPO. Denies NSAID use other than ASA 81 mg. No dysphagia. He does report early satiety and mild nausea without vomiting. Denies any significant GERD, although apparently he has been on Protonix twice a day up until the last few days, after which point he has stopped it on advice of PCP. PAST MEDICAL HISTORY: History of coronary artery disease, status post stenting ; hypertension; hyperlipidemia; COPD; sleep apnea, on CPAP; colon cancer, status post a left hemicolectomy; a fem-fem bypass followed by a femoral stent at a different time. MEDICATIONS: 1. Aspirin 81 mg daily. 2. Lipitor 40 mg daily. 3. Losartan 50 mg daily. 4. Metoprolol XL 100 mg daily. 5. Protonix 40 mg p.o. b.i.d., stopped several days ago. 6. Tramadol every 6 hours as needed. FAMILY HISTORY: No known GI or liver disease. SOCIAL HISTORY: Retired. Rare alcohol use. Significant smoking history, 1 to 2 pack a day for 50 years. Quit in 2011. No drug use. 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 REVIEW OF SYSTEMS: A 14-point systems reviewed and negative except as above. PHYSICAL EXAM: Vital Signs: Temp 99.2, heart rate 75, blood pressure 146/93, 93% on room air. General: A very pleasant chronically ill-appearing gentleman. HEENT: Mucous membranes moist. Anicteric sclerae. Cardiovascular: Regular rate and rhythm. No murmurs, rubs or gallops. Pulm: Decent air movement. Clear to auscultation in the anterior lung mcleod. Abdomen: Distended upper abdomen. Mild tenderness in the epigastrium. No guarding or rebound tenderness. Skin: No jaundice. Extremities: No significant edema. DIAGNOSTIC STUDIES/LAB DATA: Labs as summarized in the HPI. Notable for normal white blood cell count of 9.3, hemoglobin 11.7, and hematocrit of 34. This is down from a hemoglobin of 13.5 and hematocrit of 39 on 10/03/18. INR is 1.14. Sodium is 133. BUN is 28 with a creatinine of 1.43, which is within his prior baseline. Glucose elevated to 1.72. AST, ALT, alk phos, and bilirubin are all normal. CRP elevated to 98. Lipase elevated to 2339. Imaging: Abdominal CT, pelvis as reviewed in the HPI. CT notable for periduodenal inflammation with a possible second portion of duodenum lesion. Gastric lesion versus artifact from food also noted. IMPRESSION: In summary, Mr. Rangel is a 77-year-old gentleman with a complicated medical history including coronary artery disease, status post stenting; vascular disease; colon cancer, status post right hemicolectomy; chronic obstructive pulmonary disease; obstructive sleep apnea; hypertension; and hyperlipidemia, who presents with abdominal pain, early satiety, decreased appetite, and abnormal CT findings suggestive of possible duodenal and/or gastric mass. Presentation concerning for upper GI pathology, particularly given possible CT findings. Pancreatitis might explain abdominal pain, mild nausea, and elevated lipase. However, the pancreatitis would not explain the abnormal CT findings. Gastric or duodenal malignancy should be considered. PUD possible given mavis- duodenal inflammation, although patient has been on PPI BID until the past several days. I think it is appropriate to perform endoscopic visualization to assess for any upper GI tract abnormalities, which would correlate with the CT findings or explain his symptoms. In regard to the pancreatitis, the patient does not have a clear explanation on initial evaluation as there is no evidence of abnormal liver function tests, gallstones, biliary ductal dilation or significant alcohol intake. The patient denies any new medications. This diagnosis will require further investigation. RECOMMENDATIONS: # Upper GI symptoms: 1. N.p.o. We will plan for EGD in the ER this afternoon. 2. Continue PPI b.i.d. 3. Pancreatitis management as below # Possible Pancreatitis: 1. Recommend IV fluids for pancreatitis management. NPO pending EGD. 2. Please recheck lipase to ensure that this is actually a correct value. 3. If repeat lipase is in fact continuing to be elevated, then would recommend right upper quadrant ultrasound to more formally evaluate for any gallstones. GI will continue to follow. Thank you very much for this consult. [id number]/[facility] #: [id number] BIRD
--- NOTE | 2018-10-11 20:50 | HP ---
CC: Dr. Ian Meadows; Dr. Tanya Esparza, GI * ADMISSION HISTORY AND PHYSICAL: DATE OF ADMISSION: 10/11/18 PRIMARY CARE PROVIDER: Dr. Ian Meadows. ATTENDING FOR THIS ADMISSION: Dr. Jovanni Gonzalez.* (DICTATED BY RAMEZ MENDEZ) CHIEF COMPLAINT: Postprandial pain. HISTORY OF PRESENT ILLNESS: This is a pleasant 77-year-old male patient, who according to the ER report states that he has had progressive abdominal pain, primarily after the patient eats. The patient is sedated currently after having an EGD in the ER, so his history is primarily taken from previous records and the ER notes, but essentially, this is a patient with a 1-week history of right-sided abdominal pain. The patient does have history of colon cancer. He had a left hemicolectomy in 1998. He has not had any issues with colonoscopy. He has been cleared since his hemicolectomy. The patient started to have some pain about a week ago. He was seen by his PCP, who stated that the patient had some constipation. He was started on milk of magnesia. He already does take a PPI. He was also given Fleet Enema by his . He had some loose bowel movements and then started to feel better; however, the pain returned, located primarily over the side of the hemicolectomy. At that point, he came to the emergency department for evaluation. In the ED, he was noted on his CAT scan to have some significant changes. Primarily, there was a filling defect within the fundus of the stomach, stranding of the periduodenal fat along the second stage of the duodenum with focal low attenuation lesion, small calcifications associated with said lesion; however, the liver, bile ducts, and gallbladder were nonfocal. However, given the patient's history, the emergency department contacted GI as the patient was stating every time he eats, he vomits and was not able to hold in any food. Dr. Tanya Renteria came to the emergency department and did an EGD. Please refer to Dr. Tanya Renteria's notes regarding that procedure, but in short, the patient had biopsies and some ulcerations of the areas that were noted. Also, of significant note, the patient's lipase is significantly elevated at 2339. Given these circumstances, we were asked to evaluate the patient for admission. PAST MEDICAL HISTORY: His past medical history as noted on previous admissions shows that he has history of coronary artery disease, peripheral vascular disease, BPH, history of smoking, chronic back pain, and COPD. PAST SURGICAL HISTORY: Significant for TURP and left hemicolectomy. MEDICATIONS: Home medications include: 1. Ultram 50 mg p.o. q.6 hours as needed. 2. Nitroglycerin 0.4 mg sublingual p.r.n. 3. Protonix 40 mg b.i.d. 4. Metoprolol succinate XL 100 mg p.o. daily. 5. Losartan 50 mg p.o. daily. 6. Atorvastatin 40 mg p.o. in the evening. 7. Baby aspirin 81 mg daily. ALLERGIES: The patient has allergies to LISINOPRIL, SOMA, and CODEINE, and also when he takes alpha blockers, he gets headaches. SOCIAL HISTORY: The patient has a longstanding history of smoking, quit several years ago. Denies any illicit drug use and no alcohol. He is . His is his healthcare proxy, who is also currently at the bedside. Her name is Evita. Phone number is [phone]. REVIEW OF SYSTEMS: Unable to obtain as the patient is currently still sleepy and sedated from his EGD. PHYSICAL EXAMINATION GENERAL: The patient is arousable with tactile and verbal stimulation, otherwise well appearing. VITAL SIGNS: Blood pressure 141/76, heart rate 74, O2 saturation 93% on 2 L with respiratory rate of 18, and a temperature of 99.2. HEENT: The patient is normocephalic, atraumatic. PERRLA with nonicteric sclerae. Oral mucosa is dry. Tongue is midline. NECK: Supple and nontender. No JVD noted. No carotid bruits auscultated. LUNGS: Clear bilaterally to auscultation. Respirations are moderately shallow. Otherwise, he has good air entry. No wheezing, rhonchi, or rales noted. CARDIOVASCULAR: S1, S2 present. No murmurs, gallops, or rubs noted. Rate and rhythm are currently regular. He has regular sinus rhythm on telemetry. ABDOMEN: Soft, nontender, and nondistended. Positive bowel sounds in all 4 quadrants. : Deferred. MUSCULOSKELETAL: There is no clubbing and no cyanosis. No pedal edema. The patient does have some delayed motor and sensation secondary to conscious sedation, but otherwise can follow commands and otherwise intact with no neuro focalities noted. PSYCHIATRIC: He is sleepy, but can answer questions appropriately with arousal and is appropriate. DIAGNOSTIC STUDIES/LAB DATA: WBCs 9.3, RBCs 3.39, hemoglobin 11.7, hematocrit 34, MCV 100, MCH 35, platelets 109. Sodium 133, potassium 4.2, chloride 102, CO2 23, BUN 28, creatinine 1.43, GFR is 48, glucose 172, lactic acid 0.9, calcium 8.7, magnesium 2.1. Bilirubin 0.90, AST 17, ALT 9, alk phos 73. CRP 98.04. Total protein 7.0, albumin 3.9, lipase 2339. INR is 1.14. CT of the abdomen and pelvis as noted above. IMPRESSION: This is a 77-year-old male with a complaint of abdominal pain that presented to the emergency department with difficulty eating and postprandial pain, status post EGD. PLAN: 1. Abdominal pain, nausea, vomiting, and difficulty with eating. At this point , his EGD is significant for some ulcerations that appeared to be peptic ulcer disease. This is difficult to quantify since the patient had been reportedly on PPI b.i.d. At this point, we will keep him n.p.o. and continue IV fluids. He will be placed on IV Protonix b.i.d. At some point, he will need a colonoscopy; however, GI will continue to follow him at this time. 2. Elevated lipase. On the patient's CAT scan, it did not appear that the pancreas was abnormal; however, per Dr. 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 There is a possibility that the patient can have some pancreatic issues or gallstones. We will repeat the lipase and get an ultrasound of the gallbladder and reassess. The patient may need an MRCP depending on these findings. Again, we will defer to GI for any further recommendations. 3. For his history of coronary artery disease, we will continue him on his home meds of metoprolol succinate. We will hold his baby aspirin and continue his Lipitor. We will add nitroglycerin; however, the patient does not appear to have any acute cardiac issues at this time. 4. History of hypertension. We will continue his losartan. 5. For pain control, the patient does take tramadol at home. This will be continued as well and Tylenol for any febrile issues or headache as needed. 6. Code status is full. 7. DVT prophylaxis. He is high risk for bleeding given his ulcerations. He can have SCDs. 8. Fluids, electrolytes, and nutrition. IV fluids will be continued. We will keep him n.p.o. until after his gallbladder ultrasound, then he will be on clear liquids as tolerated. The rest of the patient's course will be determined by further diagnostics, laboratories, and any other input from other providers as warranted during this admission. TIME SPENT: Approximately 60 minutes evaluating the patient's chart, interfacing with other providers involved in this patient's care. JIMMY GASCA NP [id number]/[facility] #: [id number] BIRD
--- NOTE | 2018-10-11 21:27 | PRO ---
DATE OF PROCEDURE: 10/11/18 - ROOM #444 PROCEDURE PERFORMED: EGD with biopsy. INDICATION: Abdominal pain, abnormal CT findings with possible gastric and second portion duodenal abnormalities. MEDICATIONS GIVEN: Midazolam 5 mg IV, Fentanyl 50 mcg IV. PROCEDURE IN DETAIL: Full disclosure of risks was reviewed with the patient as detailed on the consent form. The patient was placed in the left lateral decubitus position and monitored with continuous pulse oximetry, interval blood pressure monitoring, and direct observation. A bite block was placed between the teeth. An Olympus gastroscope was then inserted into the patient's mouth and advanced down the esophagus, into the stomach, and into the distal duodenum. Findings are described below. FINDINGS: Esophagus was a tubular structure without rings or strictures. There did appear to be salmon colored tongues of mucosa suspicious for Bennett' s. Plan was to biopsy this area as the scope was withdrawn. However, patient did not tolerate moderate sedation well (quite hypertensive to 215 systolic and requiring frequent suctioning), so biopsies were not able to be obtained. Scope was advanced into the stomach. The stomach was examined in the forward and retroflexed views. On initial evaluation of the stomach, there were several areas of mucosa that had possible old blood which was easily washed away. There was no evidence of active bleeding or clear bleeding source in the stomach. There was diffuse gastric erythema. No clear erosions or ulcers. Biopsies obtained and sent for histologic evaluation and to rule-out H pylori. There was a prepyloric antral nodule that appeared to be inflammatory, which was biopsied. No gastric mass noted. The scope was then advanced into the duodenum and the duodenal bulb had diffuse erythema. There were a few scattered erosions as well. Biopsies were obtained from the duodenal bulb. In the second portion of the duodenum was a large and deep ulcer. This ulcer was nonbleeding, although did appear to have some flat pigmented spots. Biopsies were not directly obtained from the ulcer as it did not appear to have any clear malignant features. In the area of the second portion, there was what appeared to be a quite prominent ampulla. This was biopsied. Scope was advanced into the third to fourth portion of the duodenum. There was a medium-sized nodule in the third portion of the duodenum, which was biopsied. There was a flat whitish colored patch of mucosa in the third portion, which was biopsied. No fresh or active bleeding was noted. Scope was then withdrawn. Patient was recovered in the ER. Blood pressure quickly improved post-procedure (140-160 systolic). IMPRESSION: 1. [place] colored mucosa in the esophagus extending proximal from the GE junction suspicious for Bennett's. Area not sampled due to other acute findings and difficulty with sedating patient adequately. 2. Diffuse gastric erythema. There was an antral nodule, which was biopsied. No gastric mass. 3. Large second portion duodenal ulcer. There was also scattered erosions and erythema in the duodenal bulb. 4. There was a quite prominent ampulla, biopsied to rule-out polyp. 5. There was a nodule in the third portion of the duodenum, biopsied to rule- out polyp. 6. There was a flat white lesion, possibly representing a benign lymphangiectasia, in the third portion of the duodenum. FOLLOWUP: 1. Await pathology. 2. Recommend IV PPI b.i.d. 3. Would recommend MRCP in addition to ultrasound to evaluate for etiology of pancreatitis, particularly given the quite prominent ampulla. Unclear if this could potentially be related to the pancreatitis. 4. Would consider a trial of clear diet as tolerated. 5. IV fluids per primary team for pancreatitis management. 6. Would check H. pylori stool antigen. Biopsies will also be checked for H. pylori as above. 7. Unclear why patient would be prone to forming such a large ulcer and having inflammation if he has truly been on PPI b.i.d. up until a few days ago. Would recommend that he remain off other NSAIDs other than the aspirin. 8. 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 Biopsies will be obtained from the ulcer at that time if the ulcer has fully healed to rule out malignancy. Thank you very much for this consult. GI will continue to follow. Please contact with any questions or concerns. [id number]/[facility] #: [id number] BIRD
[2018-10-11] MEDS: Atorvastatin* 40 MG TAB PO SCH (22:41)
[2018-10-11] MEDS: Pantoprazole IV* 40 MG IV SCH (22:42)
[2018-10-12 06:40] LABS: ABS Basophils 0 10^3/ul (0-0.2); ABS Eosinophils 0 10^3/ul (0-0.6); ABS Lymphocytes 0.8 10^3/ul (1.0-4.8); ABS Monocytes 0.8 10^3/ul (0-0.8); ABS Neutrophils 5.4 10^3/ul (1.5-7.7); ABS Nucleated RBC 0 10^3/ul; Eosinophil % 0.6 %; Hematocrit 32 % (42-52); Hemoglobin 11.1 g/dl (14.0-18.0); Lymphocyte % 11.8 %; Mean Corpuscular HGB Conc 35 g/dl (31-36); Mean Corpuscular Hemoglobin 35 pg (27-31); Mean Corpuscular Volume 100 fL (80-94); Mean Platelet Volume 8.4 fL (7.4-10.4); Nucleated Red Blood Cells % 0.1; Platelet Count 104 10^3/ul (150-450); Red Blood Count 3.21 10^6/ul (4.00-5.40); Red Cell Distribution Width 14 % (10.5-15); White Blood Count 7.1 10^3/ul (3.5-10.8)
[2018-10-12 06:55] LABS: Albumin 3.3 g/dL (3.2-5.2); Albumin/Globulin Ratio 1.2 (1-3); Calcium 8.2 mg/dL (8.6-10.3); EGFR Non-African American 55.5 (>60); Globulin 2.8 g/dL (2-4); Total Bilirubin 0.5 mg/dL (0.2-1.0); Total Protein 6.1 g/dL (6.4-8.9)
[2018-10-12] MEDS: Losartan TAB* 25 MG PO SCH (08:34)
[2018-10-12] MEDS: Metoprolol Succinate XL TAB* 100 MG PO SCH (08:34)
[2018-10-12] MEDS: Pantoprazole IV* 40 MG IV SCH ×2 (08:34→21:05)
[2018-10-12] MEDS: NS 0.9% 1000 ML* 1,000 ML IV SCH ×2 (14:25→21:05)
--- NOTE | 2018-10-12 16:49 | PN ---
Subjective Date of Service: 10/12/18 Interval History: Patient seen and examined. Belly remains tender but improved. Denies fevers or chills, no n/v/d, no headaches. States he is hungry. Objective Active Medications: Acetaminophen (Tylenol Tab*) 650 mg PO Q4H PRN PRN Reason: FEVER/PAIN Atorvastatin Calcium (Lipitor*) 40 mg PO 2100 [facility] Last Admin: 10/11/18 22:41 Dose: 40 mg Hydralazine HCl (Apresoline Iv*) 5 mg IV SLOW PU Q6H PRN PRN Reason: Systolic Bp Greater Than: 175 Sodium Chloride (Ns 0.9% 1000 Ml*) 1,000 mls @ 150 mls/hr IV PER RATE [facility] Last Admin: 10/12/18 14:25 Dose: 150 mls/hr Losartan Potassium (Cozaar Tab*) 50 mg PO DAILY [facility] Last Admin: 10/12/18 08:34 Dose: 50 mg Metoprolol Succinate (Toprol Xl Tab*) 100 mg PO DAILY [facility] Last Admin: 10/12/18 08:34 Dose: 100 mg Pantoprazole Sodium (Protonix Iv*) 40 mg IV BID [facility] Last Admin: 10/12/18 08:34 Dose: 40 mg Tramadol HCl (Ultram*) 50 mg PO Q6HR PRN PRN Reason: PAIN Vital Signs - 8 hr 10/12/18 10/12/18 11:11 15:18 Temperature 98.2 F 98.3 F Pulse Rate 73 76 Respiratory 16 18 Rate Blood Pressure 148/56 164/71 (mmHg) O2 Sat by Pulse 94 97 Oximetry Oxygen Devices in Use Now: None Appearance: alert, NAD Eyes: No Scleral Icterus, PERRLA Ears/Nose/Mouth/Throat: NL Teeth, Lips, Gums, Mucous Membranes Moist Neck: NL Appearance and Movements; NL JVP, Trachea Midline Respiratory: Symmetrical Chest Expansion and Respiratory Effort, Clear to Auscultation Cardiovascular: NL Sounds; No Murmurs; No JVD, RRR, No Edema Abdominal: No Hepatosplenomegaly, - - tender in the lower epigastric region and into LUQ Extremities: No Edema, No Clubbing, Cyanosis Skin: No Rash or Ulcers Neurological: Alert and Oriented x 3, NL Sensation, NL Gait, NL Muscle Strength and Tone Nutrition: - - NPO Result Diagrams: 10/12/18 06:08 10/12/18 06:08 Microbiology and Other Data: Microbiology 10/11/18 09:52 Stool Gross Appearance - Final Stool Shiga Toxin I & II - Final Negative Shiga Toxin 1 & 2 Stool Lactoferrin - Final 10/11/18 17:20 CLOtest - Final Gastric Antrum Diagnostic Imaging: Patient Name: CARA FARNSWORTH Medical Record#: [id number] Ordering Physician: Carito José NP Acct.#: [id number] : 1940 Age: 77 Sex: M Location: [address] [place] [address]/[employer] Exam Date: 10/11/181915 ADM Status: ADM IN Order Information: MRI CHOLANGIOGRAM (MRCP) Accession Number: [id number] CPT: 39095 EXAM: MR Abdomen Without Contrast EXAM DATE/TIME: 10/11/2018 8:15 PM CLINICAL HISTORY: 77 years old, male; Pain; Abdominal pain; Localized; Right; Prior surgery; Surgery date: 6+ months; Surgery type: Hemicolectomy in 1998 (h/o colon ca); Patient HX: PT C/O right sided abdominal pain x 1 week w/ intermittent nausea; Additional info: Elevated lipase, abdominal pain, R/O pancreatitis TECHNIQUE: MR of the abdomen without contrast. COMPARISON: GB US GALL BLADDER 10/11/2018 5:59 PM A/P W CT ABD/PEL W 10/11/2018 9:04:46 AM FINDINGS: Lungs: Dependent atelectasis posterior lung bases. Liver: Normal liver parenchymal signal intensity with no focal lesions. Normal portal and hepatic vein flow voids. Gallbladder and bile ducts: No wall thickening, pericholecystic fluid, or gallstones. No intra-or extrahepatic biliary dilation. Pancreas: Subtle peripancreatic and intrapancreatic edema. No focal lesions, many ductal dilation, or distal parenchymal atrophy. Edema extends along the right subhepatic space and the anterior pararenal fascia. No encapsulated peripancreatic fluid collections. Spleen: Normal splenic signal intensity. No splenomegaly. Adrenals: No adrenal nodules. Kidneys and ureters: Right upper pole simple renal cyst measures 1.9 cm (series 3, image 22). Peripelvic left renal simple cyst and smaller cortical cysts are also seen. No pelvocaliectasis. Stomach and bowel: Incompletely distended grossly normal stomach. Reactive wall thickening of the duodenum proximally. Remaining visualized small bowel is normal in caliber and not thick walled. No masses or segmental wall thickening of the visualized colon. Intraperitoneal space: No fluid collection. Veins: Normal aortic and IVC flow voids. Bones/joints: Normal marrow signal intensity. Soft tissues: Normal. No hernias. IMPRESSION: 1. Acute interstitial edematous pancreatitis. Modified CT severity index = 2. 2. Bosniak type I renal cysts. No followup indicated. Assess/Plan/Problems-Billing Assessment: This is a 77 year old male that presents with history of post-prandial abdominal pain, nausea and vomiting, admitted for gastric ulcer and elevated lipase. - Patient Problems (1) Gastric ulcer Code(s): K25.9 - GASTRIC ULCER, UNSP ACUTE OR CHRONIC, W/O HEMOR OR PERF SNOMED Code(s): 309679242 Comment: - s/p EGD in ER last night, please see procedure note - Continue IV protonix BID - Advanced to CLD this evening - Appreciate recommendations made by GI - Follow biopsies and stool for h. pylori - H&H stable (2) Acute pancreatitis without infection or necrosis Code(s): K85.90 - ACUTE PANCREATITIS WITHOUT NECROSIS OR INFECTION, UNSP SNOMED Code(s): 761645704 Comment: - Lipase trending down - MRCP as above - No stones on gallbladder US - Continue aggressive hydration, monitor for fluid overload - Advance diet (3) CAD (coronary artery disease) Code(s): I25.10 - ATHSCL HEART DISEASE OF [place] CORONARY ARTERY W/O ANG PCTRS SNOMED Code(s): 37458537 Comment: - Currently stable - Continue metoprolol, hold ASA (4) BPH (benign prostatic hyperplasia) Code(s): N40.0 - BENIGN PROSTATIC HYPERPLASIA WITHOUT LOWER URINRY TRACT SYMP SNOMED Code(s): 008449838 Comment: - Voiding freely (5) COPD (chronic obstructive pulmonary disease) Code(s): J44.9 - CHRONIC OBSTRUCTIVE PULMONARY DISEASE, UNSPECIFIED SNOMED Code(s): 86882558 Comment: - No respiratory distress noted, not in exacerbation (6) Hypertension Code(s): I10 - ESSENTIAL (PRIMARY) HYPERTENSION SNOMED Code(s): 70075088 Comment: - Continue metoprolol, hydralazine PRN (7) DVT prophylaxis Code(s): VWL4119 - SNOMED Code(s): 351803875 Comment: - High risk but also high risk for bleeding given gastric ulcer - SCDs and ambulate (8) Full code status Code(s): Z78.9 - OTHER SPECIFIED HEALTH STATUS SNOMED Code(s): 177119852 Status and Disposition: Inpatient. Dispo TBD
[2018-10-12] MEDS: Atorvastatin* 40 MG TAB PO SCH (21:05)
[2018-10-13] MEDS: hydrALAZINE IV* 20 MG/ML VIAL IV SLOW PU PRN ×2 (04:03→18:23)
[2018-10-13] MEDS: NS 0.9% 1000 ML* 1,000 ML IV SCH ×2 (04:39→14:58)
[2018-10-13 06:30] LABS: ABS Basophils 0 10^3/ul (0-0.2); ABS Eosinophils 0.1 10^3/ul (0-0.6); ABS Lymphocytes 1.3 10^3/ul (1.0-4.8); ABS Monocytes 0.5 10^3/ul (0-0.8); ABS Neutrophils 3.9 10^3/ul (1.5-7.7); ABS Nucleated RBC 0 10^3/ul; Hematocrit 34 % (42-52); Hemoglobin 11.8 g/dl (14.0-18.0); Lymphocyte % 21.9 %; Mean Corpuscular HGB Conc 35 g/dl (31-36); Mean Corpuscular Hemoglobin 35 pg (27-31); Mean Corpuscular Volume 100 fL (80-94); Mean Platelet Volume 8.1 fL (7.4-10.4); Nucleated Red Blood Cells % 0; Platelet Count 114 10^3/ul (150-450); Red Blood Count 3.35 10^6/ul (4.00-5.40); Red Cell Distribution Width 14 % (10.5-15); White Blood Count 5.8 10^3/ul (3.5-10.8)
[2018-10-13 06:48] LABS: Albumin 3.5 g/dL (3.2-5.2); Albumin/Globulin Ratio 1.2 (1-3); BUN/Creatinine Ratio 13.8 (8-20); Calcium 8.7 mg/dL (8.6-10.3); EGFR Non-African American 61.1 (>60); Total Bilirubin 0.6 mg/dL (0.2-1.0); Total Protein 6.5 g/dL (6.4-8.9)
[2018-10-13] MEDS: Metoprolol Succinate XL TAB* 100 MG PO SCH (09:23)
[2018-10-13] MEDS: Pantoprazole IV* 40 MG IV SCH ×2 (09:23→20:30)
[2018-10-13] MEDS: Losartan TAB* 25 MG PO SCH (09:23)
--- NOTE | 2018-10-13 17:04 | PN ---
Subjective Date of Service: 10/13/18 Interval History: Patient seen and examined. Feeling much better, no complaint of abdominal pain today. Denies n/v. Has been tolerating CLD without issue. Afebrile. Objective Active Medications: Acetaminophen (Tylenol Tab*) 650 mg PO Q4H PRN PRN Reason: FEVER/PAIN Atorvastatin Calcium (Lipitor*) 40 mg PO 2100 [facility] Last Admin: 10/12/18 21:05 Dose: 40 mg Hydralazine HCl (Apresoline Iv*) 5 mg IV SLOW PU Q6H PRN PRN Reason: Systolic Bp Greater Than: 175 Last Admin: 10/13/18 04:03 Dose: 5 mg Losartan Potassium (Cozaar Tab*) 50 mg PO DAILY [facility] Last Admin: 10/13/18 09:23 Dose: 50 mg Metoprolol Succinate (Toprol Xl Tab*) 100 mg PO DAILY [facility] Last Admin: 10/13/18 09:23 Dose: 100 mg Pantoprazole Sodium (Protonix Iv*) 40 mg IV BID [facility] Last Admin: 10/13/18 09:23 Dose: 40 mg Tramadol HCl (Ultram*) 50 mg PO Q6HR PRN PRN Reason: PAIN Oxygen Devices in Use Now: None Appearance: alert, NAD Eyes: No Scleral Icterus, PERRLA Ears/Nose/Mouth/Throat: NL Teeth, Lips, Gums, Mucous Membranes Moist Neck: NL Appearance and Movements; NL JVP, Trachea Midline Respiratory: Symmetrical Chest Expansion and Respiratory Effort, Clear to Auscultation Cardiovascular: NL Sounds; No Murmurs; No JVD, RRR, No Edema Abdominal: NL Sounds; No Tenderness; No Distention, No Hepatosplenomegaly Extremities: No Edema, No Clubbing, Cyanosis Skin: No Rash or Ulcers Neurological: Alert and Oriented x 3, NL Gait Nutrition: - - CLD Result Diagrams: 10/13/18 06:05 10/13/18 06:05 Microbiology and Other Data: Microbiology 10/11/18 09:52 Stool Gross Appearance - Final Stool Shiga Toxin I & II - Final Negative Shiga Toxin 1 & 2 Stool Lactoferrin - Final 10/11/18 17:20 CLOtest - Final Gastric Antrum Diagnostic Imaging: Patient Name: CARA FARNSWORTH Medical Record#: [id number] Ordering Physician: Carito José VALVE [employer]TER Acct.#: [id number] : 1940 Age: 77 Sex: M Location: [address] [place] [address]/TELEMET[employer] Exam Date: 10/11/181915 ADM Status: ADM IN Order Information: MRI CHOLANGIOGRAM (MRCP) Accession Number: [id number] CPT: 50441 EXAM: MR Abdomen Without Contrast EXAM DATE/TIME: 10/11/2018 8:15 PM CLINICAL HISTORY: 77 years old, male; Pain; Abdominal pain; Localized; Right; Prior surgery; Surgery date: 6+ months; Surgery type: Hemicolectomy in 1998 (h/o colon ca); Patient HX: PT C/O right sided abdominal pain x 1 week w/ intermittent nausea; Additional info: Elevated lipase, abdominal pain, R/O pancreatitis TECHNIQUE: MR of the abdomen without contrast. COMPARISON: GB US GALL BLADDER 10/11/2018 5:59 PM A/P W CT ABD/PEL W 10/11/2018 9:04:46 AM FINDINGS: Lungs: Dependent atelectasis posterior lung bases. Liver: Normal liver parenchymal signal intensity with no focal lesions. Normal portal and hepatic vein flow voids. Gallbladder and bile ducts: No wall thickening, pericholecystic fluid, or gallstones. No intra-or extrahepatic biliary dilation. Pancreas: Subtle peripancreatic and intrapancreatic edema. No focal lesions, many ductal dilation, or distal parenchymal atrophy. Edema extends along the right subhepatic space and the anterior pararenal fascia. No encapsulated peripancreatic fluid collections. Spleen: Normal splenic signal intensity. No splenomegaly. Adrenals: No adrenal nodules. Kidneys and ureters: Right upper pole simple renal cyst measures 1.9 cm (series 3, image 22). Peripelvic left renal simple cyst and smaller cortical cysts are also seen. No pelvocaliectasis. Stomach and bowel: Incompletely distended grossly normal stomach. Reactive wall thickening of the duodenum proximally. Remaining visualized small bowel is normal in caliber and not thick walled. No masses or segmental wall thickening of the visualized colon. Intraperitoneal space: No fluid collection. Veins: Normal aortic and IVC flow voids. Bones/joints: Normal marrow signal intensity. Soft tissues: Normal. No hernias. IMPRESSION: 1. Acute interstitial edematous pancreatitis. Modified CT severity index = 2. 2. Bosniak type I renal cysts. No followup indicated. Assess/Plan/Problems-Billing Assessment: This is a 77 year old male that presents with history of post-prandial abdominal pain, nausea and vomiting, admitted for gastric ulcer and elevated lipase. - Patient Problems (1) Gastric ulcer Code(s): K25.9 - GASTRIC ULCER, UNSP ACUTE OR CHRONIC, W/O HEMOR OR PERF SNOMED Code(s): 450563449 Comment: - s/p EGD, please see procedure note - Cahnge to protomix oral - Tolerating CLD, advanced for FLD for lunch and GI soft for dinner - Will DC IVF - Follow biopsies and stool for h. pylori, NTD - H&H stable (2) Acute pancreatitis without infection or necrosis Code(s): K85.90 - ACUTE PANCREATITIS WITHOUT NECROSIS OR INFECTION, UNSP SNOMED Code(s): 237701119 Comment: - Etiology unclear - Lipase trending down - MRCP as above - No stones on gallbladder US - Diet advanced, IVF DCd - Resolving (3) CAD (coronary artery disease) Code(s): I25.10 - ATHSCL HEART DISEASE OF [place] CORONARY ARTERY W/O ANG PCTRS SNOMED Code(s): 71871460 Comment: - Currently stable - Continue metoprolol, hold ASA (4) BPH (benign prostatic hyperplasia) Code(s): N40.0 - BENIGN PROSTATIC HYPERPLASIA WITHOUT LOWER URINRY TRACT SYMP SNOMED Code(s): 038002076 Comment: - Voiding freely (5) COPD (chronic obstructive pulmonary disease) Code(s): J44.9 - CHRONIC OBSTRUCTIVE PULMONARY DISEASE, UNSPECIFIED SNOMED Code(s): 15837583 Comment: - No respiratory distress noted, not in exacerbation (6) Hypertension Code(s): I10 - ESSENTIAL (PRIMARY) HYPERTENSION SNOMED Code(s): 06806495 Comment: - Continue metoprolol, hydralazine PRN - BP stable (7) DVT prophylaxis Code(s): PUX7448 - SNOMED Code(s): 285230304 Comment: - High risk but also high risk for bleeding given gastric ulcer - SCDs and ambulate (8) Full code status Code(s): Z78.9 - OTHER SPECIFIED HEALTH STATUS SNOMED Code(s): 029850014 Status and Disposition: Inpatient, likely DC home in AM if patient does not exhibit abdominal pain overnight. Discussed with patient's , she is aware of DC plan.
[2018-10-13] MEDS: amLODIPine TAB* 5 MG PO SCH (20:30)
[2018-10-13] MEDS: Atorvastatin* 40 MG TAB PO SCH (20:31)
[2018-10-13] MEDS ORDERED: NS 0.9% 1000 ML* 1,000 ML IV SCH (22:15)
[2018-10-13 23:09] LABS: ABS Basophils 0 10^3/ul (0-0.2); ABS Eosinophils 0 10^3/ul (0-0.6); ABS Lymphocytes 0.7 10^3/ul (1.0-4.8); ABS Monocytes 0.4 10^3/ul (0-0.8); ABS Neutrophils 4.5 10^3/ul (1.5-7.7); ABS Nucleated RBC 0 10^3/ul; Eosinophil % 0.3 %; Hematocrit 33 % (42-52); Hemoglobin 11.4 g/dl (14.0-18.0); Lymphocyte % 12.9 %; Mean Corpuscular HGB Conc 35 g/dl (31-36); Mean Corpuscular Hemoglobin 35 pg (27-31); Mean Corpuscular Volume 100 fL (80-94); Nucleated Red Blood Cells % 0; Platelet Count 121 10^3/ul (150-450); Red Blood Count 3.29 10^6/ul (4.00-5.40); Red Cell Distribution Width 14 % (10.5-15); White Blood Count 5.7 10^3/ul (3.5-10.8)
[2018-10-13 23:23] LABS: Albumin 3.6 g/dL (3.2-5.2); Albumin/Globulin Ratio 1.1 (1-3); Calcium 8.8 mg/dL (8.6-10.3); EGFR Non-African American 61.7 (>60); Globulin 3.2 g/dL (2-4); Potassium 4.1 mmol/L (3.5-5.0); Total Bilirubin 0.4 mg/dL (0.2-1.0); Total Protein 6.8 g/dL (6.4-8.9)
[2018-10-14] MEDS: Morphine VIAL* 4 MG/ML VIAL (1 ml vial) IV PRN ×3 (00:15→13:38)
[2018-10-14] MEDS: NS 0.9% 1000 ML* 1,000 ML IV SCH ×4 (00:15→21:45)
[2018-10-14] MEDS: hydrALAZINE IV* 20 MG/ML VIAL IV SLOW PU PRN ×2 (01:10→20:05)
[2018-10-14] MEDS: Acetaminophen TAB* 325 MG PO PRN ×2 (02:29→20:12)
[2018-10-14 06:17] LABS: Albumin 3.4 g/dL (3.2-5.2); Albumin/Globulin Ratio 1.2 (1-3); Calcium 8.4 mg/dL (8.6-10.3); EGFR Non-African American 66.3 (>60); Globulin 2.9 g/dL (2-4); Total Bilirubin 0.5 mg/dL (0.2-1.0); Total Protein 6.3 g/dL (6.4-8.9)
[2018-10-14] MEDS: Losartan TAB* 25 MG PO SCH (08:27)
[2018-10-14] MEDS: Metoprolol Succinate XL TAB* 100 MG PO SCH (08:27)
[2018-10-14] MEDS: amLODIPine TAB* 5 MG PO SCH (08:27)
[2018-10-14] MEDS: Pantoprazole IV* 40 MG IV SCH ×2 (08:28→20:06)
[2018-10-14] MEDS ORDERED: diPHENhydraMINE PO* 25 MG PO PRN (14:19)
--- NOTE | 2018-10-14 15:15 | PN ---
Subjective Date of Service: 10/14/18 Interval History: Patient seen and examined. at bedside. Patient states overnight, abdominal pain increased again with a feeling of being bloated. Denies fever or chills, no SOB, no n/v/d. Pain is 7/10. Objective Active Medications: Acetaminophen (Tylenol Tab*) 650 mg PO Q4H PRN PRN Reason: FEVER/PAIN Last Admin: 10/14/18 02:29 Dose: 650 mg Amlodipine Besylate (Norvasc Tab*) 10 mg PO DAILY [facility] Last Admin: 10/14/18 08:27 Dose: 10 mg Atorvastatin Calcium (Lipitor*) 40 mg PO 2100 [facility] Last Admin: 10/13/18 20:31 Dose: 40 mg Diphenhydramine HCl (Benadryl Po*) 25 mg PO Q6H PRN PRN Reason: ITCHING Hydralazine HCl (Apresoline Iv*) 5 mg IV SLOW PU Q6H PRN PRN Reason: Systolic Bp Greater Than: 175 Last Admin: 10/14/18 01:10 Dose: 5 mg Sodium Chloride (Ns 0.9% 1000 Ml*) 1,000 mls @ 150 mls/hr IV PER RATE [facility] Last Admin: 10/14/18 13:44 Dose: 150 mls/hr Losartan Potassium (Cozaar Tab*) 50 mg PO DAILY [facility] Last Admin: 10/14/18 08:27 Dose: 50 mg Metoprolol Succinate (Toprol Xl Tab*) 100 mg PO DAILY [facility] Last Admin: 10/14/18 08:27 Dose: 100 mg Morphine Sulfate (Morphine Vial*) 2 mg IV Q4H PRN PRN Reason: PAIN - MILD Last Admin: 10/14/18 13:38 Dose: 2 mg Pantoprazole Sodium (Protonix Iv*) 40 mg IV BID [facility] Last Admin: 10/14/18 08:28 Dose: 40 mg Tramadol HCl (Ultram*) 50 mg PO Q6HR PRN PRN Reason: PAIN Last Admin: 10/13/18 22:15 Dose: 50 mg Vital Signs - 8 hr 10/14/18 10/14/18 10/14/18 07:18 08:00 08:29 Temperature 98.0 F Pulse Rate 94 Respiratory 18 18 18 Rate Blood Pressure 159/81 (mmHg) O2 Sat by Pulse 95 Oximetry 10/14/18 10/14/18 10/14/18 11:40 12:32 13:38 Temperature 98.3 F Pulse Rate 81 Respiratory 16 16 16 Rate Blood Pressure 155/82 (mmHg) O2 Sat by Pulse 94 Oximetry Oxygen Devices in Use Now: None Appearance: Alert, NAD Eyes: No Scleral Icterus, PERRLA Ears/Nose/Mouth/Throat: NL Teeth, Lips, Gums, Mucous Membranes Moist Neck: NL Appearance and Movements; NL JVP, Trachea Midline Respiratory: Symmetrical Chest Expansion and Respiratory Effort, Clear to Auscultation Cardiovascular: NL Sounds; No Murmurs; No JVD, RRR, No Edema Abdominal: No Hepatosplenomegaly, - - tender around the mid epigastric region to palpation Extremities: No Edema, No Clubbing, Cyanosis Skin: No Rash or Ulcers, No Nodules or Sclerosis Neurological: Alert and Oriented x 3 Nutrition: - - NPO Result Diagrams: 10/13/18 22:48 10/14/18 05:51 Microbiology and Other Data: Microbiology 10/11/18 09:52 Stool Gross Appearance - Final Stool Shiga Toxin I & II - Final Negative Shiga Toxin 1 & 2 Stool Lactoferrin - Final 10/11/18 17:20 CLOtest - Final Gastric Antrum Diagnostic Imaging: Patient Name: CARA FARNSWORTH Medical Record#: [id number] Ordering Physician: Carito José NP Acct.#: [id number] : 1940 Age: 77 Sex: M Location: [address] [place] [address] MEDICAL/TELEMETRY Exam Date: 10/11/181915 ADM Status: ADM IN Order Information: MRI CHOLANGIOGRAM (MRCP) Accession Number: [id number] CPT: 19453 EXAM: MR Abdomen Without Contrast EXAM DATE/TIME: 10/11/2018 8:15 PM CLINICAL HISTORY: 77 years old, male; Pain; Abdominal pain; Localized; Right; Prior surgery; Surgery date: 6+ months; Surgery type: Hemicolectomy in 1998 (h/o colon ca); Patient HX: PT C/O right sided abdominal pain x 1 week w/ intermittent nausea; Additional info: Elevated lipase, abdominal pain, R/O pancreatitis TECHNIQUE: MR of the abdomen without contrast. COMPARISON: GB US GALL BLADDER 10/11/2018 5:59 PM A/P W CT ABD/PEL W 10/11/2018 9:04:46 AM FINDINGS: Lungs: Dependent atelectasis posterior lung bases. Liver: Normal liver parenchymal signal intensity with no focal lesions. Normal portal and hepatic vein flow voids. Gallbladder and bile ducts: No wall thickening, pericholecystic fluid, or gallstones. No intra-or extrahepatic biliary dilation. Pancreas: Subtle peripancreatic and intrapancreatic edema. No focal lesions, many ductal dilation, or distal parenchymal atrophy. Edema extends along the right subhepatic space and the anterior pararenal fascia. No encapsulated peripancreatic fluid collections. Spleen: Normal splenic signal intensity. No splenomegaly. Adrenals: No adrenal nodules. Kidneys and ureters: Right upper pole simple renal cyst measures 1.9 cm (series 3, image 22). Peripelvic left renal simple cyst and smaller cortical cysts are also seen. No pelvocaliectasis. Stomach and bowel: Incompletely distended grossly normal stomach. Reactive wall thickening of the duodenum proximally. Remaining visualized small bowel is normal in caliber and not thick walled. No masses or segmental wall thickening of the visualized colon. Intraperitoneal space: No fluid collection. Veins: Normal aortic and IVC flow voids. Bones/joints: Normal marrow signal intensity. Soft tissues: Normal. No hernias. IMPRESSION: 1. Acute interstitial edematous pancreatitis. Modified CT severity index = 2. 2. Bosniak type I renal cysts. No followup indicated. Patient Name: CARA FARNSWORTH Medical Record#: [id number] Ordering Physician: Atilio Rivera NP Acct.#: [id number] : 1940 Age: 77 Sex: M Location: [address] [place] [address]/TELEMETRY Exam Date: 10/13/182203 ADM Status: ADM IN Order Information: ABDOMEN (COMPLETE) 2 VWS Accession Number: [id number] CPT: 42863 EXAM: XR Abdomen, 2 Views EXAM DATE/TIME: 10/13/2018 10:32 PM CLINICAL HISTORY: 77 years old, male; Pain; Abdominal pain; Flank; Left upper quadrant (luq); Additional info: Abd pain TECHNIQUE: Frontal view of the abdomen/pelvis with upright view of the abdomen. COMPARISON: OT KUB ABDOMEN/KUB 1 VW 10/03/2018 12:25 PM FINDINGS: Gastrointestinal tract: Nonobstructive bowel gas pattern. No air fluid levels. Normal volume of colonic stool. Intraperitoneal space: No free air. Organs: Calcifications are again seen medial to the kidneys with none projecting over the kidneys. Vasculature: Right common and external iliac artery stent. Bones/joints: The spine demonstrates mild degenerative changes at multiple levels. Mild bilateral hip primary osteoarthritis. IMPRESSION: No radiographic findings to correlate with patient's symptomatology. Assess/Plan/Problems-Billing Assessment: This is a 77 year old male that presents with history of post-prandial abdominal pain, nausea and vomiting, admitted for gastric ulcer and elevated lipase. - Patient Problems (1) Gastric ulcer Code(s): K25.9 - GASTRIC ULCER, UNSP ACUTE OR CHRONIC, W/O HEMOR OR PERF SNOMED Code(s): 343877117 Comment: - s/p EGD, please see procedure note - continue PPI (2) Acute pancreatitis without infection or necrosis Code(s): K85.90 - ACUTE PANCREATITIS WITHOUT NECROSIS OR INFECTION, UNSP SNOMED Code(s): 003717285 Comment: - Was resolving yesterday, but had increased pain overnight with increased lipase to 3162, now trending back down to 547 this morning - Placed back on IVF, NPO - Discussed with Dr. Finley of GI today who will see the patient, question if he will need repeat MRCP (3) CAD (coronary artery disease) Code(s): I25.10 - ATHSCL HEART DISEASE OF [place] CORONARY ARTERY W/O ANG PCTRS SNOMED Code(s): 65856479 Comment: - Currently stable - Continue metoprolol, hold ASA (4) BPH (benign prostatic hyperplasia) Code(s): N40.0 - BENIGN PROSTATIC HYPERPLASIA WITHOUT LOWER URINRY TRACT SYMP SNOMED Code(s): 852105352 Comment: - Voiding freely (5) COPD (chronic obstructive pulmonary disease) Code(s): J44.9 - CHRONIC OBSTRUCTIVE PULMONARY DISEASE, UNSPECIFIED SNOMED Code(s): 75334564 Comment: - No respiratory distress noted, not in exacerbation (6) Hypertension Code(s): I10 - ESSENTIAL (PRIMARY) HYPERTENSION SNOMED Code(s): 78560035 Comment: - Continue metoprolol, hydralazine PRN - Had hypertension overnight that may have correlated to increased pain - BP stable today, continue to monitor (7) DVT prophylaxis Code(s): DWN8167 - SNOMED Code(s): 183825059 Comment: - High risk but also high risk for bleeding given gastric ulcer - SCDs and ambulate (8) Full code status Code(s): Z78.9 - OTHER SPECIFIED HEALTH STATUS SNOMED Code(s): 824212475 Status and Disposition: Inpatient, anticipate DC to home when medically stable.
[2018-10-14] MEDS: Atorvastatin* 40 MG TAB PO SCH (20:06)
--- NOTE | 2018-10-14 20:56 | CONS ---
GASTROENTEROLOGY CONSULT FOLLOWUP: DATE OF CONSULT: 10/14/18 INTERVAL HISTORY: This 77-year-old man admitted 3 days ago with epigastric pain and found to have a sizeable and deep duodenal bulb ulcer in the midst of fair amount of duodenitis, was simultaneously noted to have lipase of about 2300. An obvious cause for this first bout of pancreatitis was not available as his LFTs were absolutely normal, common duct 2 mm on imaging, no gallstones in the gallbladder, and no history of alcohol abuse or recent suspect medications. He was started on clear liquids later on the next day and then advanced to full liquids for lunch the second day, which did include some ice cream. He tolerated that just fine. He was given a soft diet yesterday for dinner, and a couple of hours later, had severe abdominal pain with 2 views of the abdomen unremarkable, but repeat labs showing his lipase had gone back up, this time even higher to 3162. This morning, it is back down to 547. He has been kept n.p.o. Since admission, he has been on Protonix 40 mg twice a day IV and taking his usual amlodipine, losartan, metoprolol, and atorvastatin. These are all longstanding meds. He also takes some tramadol for low back pain. He does not take any NSAIDs. 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 In the past, he has never had any pancreatic issues. He has a glass of wine once a month or so. There is no beer intake. He does not take any NSAIDs for any purpose. He stopped using them when he was on Plavix for his peripheral arterial stent. He does take low dose baby aspirin. He had been taking Tagamet for a peptic ulcer diagnosed in the mid 80s. He graduated to Zantac and then to [facility] and then his primary, Dr. Varela, was giving him pantoprazole. He does not recall the exact circumstances of that progression. At some point, a few years ago, the pantoprazole was made twice a day. He switched over to Dr. Meadows about a year and a half ago and the pantoprazole was reduced to once a day. For a variety of reasons, he ran out of it about a week ago and had not taken it. During the last month or several, he had been having more trouble with constipation and at a primary care visit a couple of weeks back, he complained of this but also of abdominal pain. He had not shared the abdominal pain history with his . He was given milk of magnesia to take every other day for and also"a while" a dose of MiraLAX. Unsatisfied with the results with the constipation, he took Fleet Enema on Tuesday night and actually his major pain and admission occurred the next day. PHYSICAL EXAM: His abdomen is rounded with normal bowel sounds that are active , but not mechanical. The abdomen is firm without tenderness. He has been passing lots of gas today. There are no surgical scars. DIAGNOSTIC STUDIES/LAB DATA: Other record review - CLOtest 10/11/18 negative. Stool H. pylori pending. Labs - on admission, white count 9.3 and has drifted down to 5.7. Hemoglobin 11.7, unchanged now at 11.4. Albumin 3.9 and has come down slightly to 3.4. Gastroscopy review -nasty fairly deep 1 cm or slightly greater ulcer distal bulb with a black base. It appears fairly deep. Biopsies obtained during that gastroscopy showed normal duodenal mucosa from 2 sites in the duodenum and the papilla, which was prominent and also biopsied was benign. He had a hyperplastic gastric antral polyp. IMPRESSION: This 77-year-old man complained of fairly nonspecific abdominal distress with some recurring variation of bowel pattern. It sounded mostly functional or like a common occurrence of functional constipation from whatever cause. He got some results from standard symptomatic remedies. He was then admitted to the hospital with fairly striking lipase elevation, although minimal changes in the pancreas on CT scan and a normal white count. Upper endoscopy showed a sizeable ulcer, which was unexpected given no Helicobacter, no NSAID exposure and just a week off of his usual pantoprazole. The initial mystery is why he would have an ulcer with that degree of chronicity in the face of steady standard dose PPI regimen. Fasting gastrin will be ordered. The second level mystery is, what caused the pancreatitis. A consideration would be penetration of the ulcer, although that would be unusual and the ulcer was not that big. Nonetheless, now that he has been back on a PPI intravenously for 3 days, we will add an H2 herson and attempt to repeat again. [id number]/[facility] #: [id number] [facility]
[2018-10-14] MEDS ORDERED: Famotidine IV* 10 MG/ML 2 ML (20 mg) IV ONE (21:00)
[2018-10-14 21:40] LABS: Stool Helicobacter pylori Ag Negative (Negative)
[2018-10-14] MEDS ORDERED: hydrALAZINE IV* 20 MG/ML VIAL IV SLOW PU ONE (22:44)
[2018-10-15] MEDS ORDERED: Labetalol IV* 5 MG/ML 20 ML VIAL IV PUSH ONE (01:03)
[2018-10-15] MEDS ORDERED: cloNIDine TAB* 0.1 MG PO ONE (01:10)
--- NOTE | 2018-10-15 03:20 | PN ---
Hospitalist Progress Note Date of Service: 10/15/18 called reg pt's b/p pt. presented to er with abd pain despite of normal wbc abd x ray neg. sbp was in the 180s close to 190 pt has been getting hydralazine iv 5 mg twice still 180s ---> clonidine added he allergy to igor and has been on arb 50 mg daily. pt is npo except meds but has been on ns 150 cc/hr abd x ray is neg labs wnl ( wbc and his bun/creainine ratio ) will hold ivf if he still has abd pain at 6 am and sbp has been coming down nicely will resume ns at 50 to 75 cc/hr
[2018-10-15 05:34] LABS: ABS Basophils 0 10^3/ul (0-0.2); ABS Eosinophils 0.1 10^3/ul (0-0.6); ABS Monocytes 0.4 10^3/ul (0-0.8); ABS Neutrophils 2.5 10^3/ul (1.5-7.7); ABS Nucleated RBC 0 10^3/ul; Eosinophil % 1.4 %; Hematocrit 29 % (42-52); Hemoglobin 10.2 g/dl (14.0-18.0); Lymphocyte % 25.5 %; Mean Corpuscular HGB Conc 35 g/dl (31-36); Mean Corpuscular Hemoglobin 35 pg (27-31); Mean Corpuscular Volume 100 fL (80-94); Mean Platelet Volume 7.7 fL (7.4-10.4); Nucleated Red Blood Cells % 0; Platelet Count 120 10^3/ul (150-450); Red Blood Count 2.93 10^6/ul (4.00-5.40); Red Cell Distribution Width 14 % (10.5-15)
[2018-10-15] MEDS: amLODIPine TAB* 5 MG PO SCH (08:19)
[2018-10-15] MEDS: Losartan TAB* 25 MG PO SCH (08:19)
[2018-10-15] MEDS: Pantoprazole IV* 40 MG IV SCH ×2 (08:19→20:23)
[2018-10-15] MEDS: Metoprolol Succinate XL TAB* 100 MG PO SCH (08:19)
[2018-10-15 08:37] LABS: Calcium 8.2 mg/dL (8.6-10.3); Potassium 4.2 mmol/L (3.5-5.0)
[2018-10-15 08:43] LABS: BUN/Creatinine Ratio 9.9 (8-20); EGFR Non-African American 58.1 (>60)
--- NOTE | 2018-10-15 15:33 | PN ---
Subjective Date of Service: 10/15/18 Interval History: Patient's abdominal pain and vomiting resolved almost entirely since the overnight. Patient denies F/C, N/V, abdominal pain, CP, SOB, Reflux, dizziness, or other pain. Patient offers no complaints. Family History: Unchanged from Admission Social History: Unchanged from Admission Past Medical History: Unchanged from Admission Objective Active Medications: Acetaminophen (Tylenol Tab*) 650 mg PO Q4H PRN PRN Reason: FEVER/PAIN Last Admin: 10/14/18 20:12 Dose: 650 mg Amlodipine Besylate (Norvasc Tab*) 10 mg PO DAILY [facility] Last Admin: 10/15/18 08:19 Dose: 10 mg Atorvastatin Calcium (Lipitor*) 40 mg PO 2100 [facility] Last Admin: 10/14/18 20:06 Dose: 40 mg Diphenhydramine HCl (Benadryl Po*) 25 mg PO Q6H PRN PRN Reason: ITCHING Hydralazine HCl (Apresoline Iv*) 5 mg IV SLOW PU Q6H PRN PRN Reason: Systolic Bp Greater Than: 175 Last Admin: 10/14/18 20:05 Dose: 5 mg Losartan Potassium (Cozaar Tab*) 100 mg PO DAILY [facility] Last Admin: 10/15/18 08:19 Dose: 100 mg Metoprolol Succinate (Toprol Xl Tab*) 100 mg PO DAILY [facility] Last Admin: 10/15/18 08:19 Dose: 100 mg Morphine Sulfate (Morphine Vial*) 2 mg IV Q4H PRN PRN Reason: PAIN - MILD Last Admin: 10/14/18 13:38 Dose: 2 mg Pantoprazole Sodium (Protonix Iv*) 40 mg IV BID [facility] Last Admin: 10/15/18 08:19 Dose: 40 mg Tramadol HCl (Ultram*) 50 mg PO Q6HR PRN PRN Reason: PAIN Last Admin: 10/13/18 22:15 Dose: 50 mg Vital Signs - 8 hr 10/15/18 10/15/18 10/15/18 07:32 08:00 12:18 Temperature 98.2 F 97.7 F Pulse Rate 70 69 Respiratory 16 16 16 Rate Blood Pressure 142/70 125/62 (mmHg) O2 Sat by Pulse 95 95 Oximetry Oxygen Devices in Use Now: None Appearance: Patient is a 77yo male who appears stated age and is sitting in the bed in NAD. Eyes: No Scleral Icterus, PERRLA Ears/Nose/Mouth/Throat: NL Teeth, Lips, Gums, Clear Oropharnyx, Mucous Membranes Moist Neck: NL Appearance and Movements; NL JVP, Trachea Midline Respiratory: Symmetrical Chest Expansion and Respiratory Effort, Clear to Auscultation Cardiovascular: NL Sounds; No Murmurs; No JVD, RRR, No Edema Abdominal: NL Sounds; No Tenderness; No Distention, No Hepatosplenomegaly Lymphatic: No Cervical Adenopathy Extremities: No Edema, No Clubbing, Cyanosis Skin: No Rash or Ulcers, No Nodules or Sclerosis Neurological: Alert and Oriented x 3, NL Sensation, NL Muscle Strength and Tone Result Diagrams: 10/15/18 05:20 10/15/18 05:16 Microbiology and Other Data: Microbiology 10/11/18 09:52 Stool Gross Appearance - Final Stool Shiga Toxin I & II - Final Negative Shiga Toxin 1 & 2 Stool Lactoferrin - Final 10/11/18 17:20 CLOtest - Final Gastric Antrum Assess/Plan/Problems-Billing Assessment: This is a 77 year old male that presents with history of post-prandial abdominal pain, nausea and vomiting, admitted for gastric ulcer and elevated lipase who is improving with a fluctuating course. - Patient Problems (1) Acute pancreatitis without infection or necrosis Current Visit: Yes Status: Acute Code(s): K85.90 - ACUTE PANCREATITIS WITHOUT NECROSIS OR INFECTION, UNSP SNOMED Code(s): 498093289 Comment: - Improving again after recurrence. No No obvious cause. - Advanced again to clears. - No indication for MRCP - EUS at some point a possibility to elucidate abnormalities visualized with ampulla. (2) Gastric ulcer Current Visit: Yes Status: Acute Code(s): K25.9 - GASTRIC ULCER, UNSP ACUTE OR CHRONIC, W/O HEMOR OR PERF SNOMED Code(s): 286217937 Comment: - S/P EGD, please see procedure note - Continue PPI high dose - Check Gastrin Level - No NSAIDS or H. Pylori (3) BPH (benign prostatic hyperplasia) Current Visit: Yes Status: Acute Code(s): N40.0 - BENIGN PROSTATIC HYPERPLASIA WITHOUT LOWER URINRY TRACT SYMP SNOMED Code(s): 981092792 Comment: - Voiding freely (4) CAD (coronary artery disease) Current Visit: Yes Status: Acute Code(s): I25.10 - ATHSCL HEART DISEASE OF [place] CORONARY ARTERY W/O ANG PCTRS SNOMED Code(s): 56120226 Comment: - Currently stable - Continue metoprolol, hold ASA due to ulcers. (5) COPD (chronic obstructive pulmonary disease) Current Visit: Yes Status: Acute Code(s): J44.9 - CHRONIC OBSTRUCTIVE PULMONARY DISEASE, UNSPECIFIED SNOMED Code(s): 07291791 Comment: - No respiratory distress noted, not in exacerbation (6) Hypertension Current Visit: Yes Status: Acute Code(s): I10 - ESSENTIAL (PRIMARY) HYPERTENSION SNOMED Code(s): 89365443 Comment: - Continue increased Losartan, Amlodipine, Metoprolol - Continue to monitor (7) DVT prophylaxis Current Visit: Yes Status: Acute Code(s): PTD2735 - SNOMED Code(s): 153177505 Comment: - High risk but also high risk for bleeding given gastric ulcer - SCDs and ambulate (8) Full code status Current Visit: Yes Status: Acute Code(s): Z78.9 - OTHER SPECIFIED HEALTH STATUS SNOMED Code(s): 304953224 Status and Disposition: Inpatient, anticipate DC to home when medically stable.
[2018-10-15] MEDS: Atorvastatin* 40 MG TAB PO SCH (20:26)
[2018-10-15] MEDS ORDERED: Famotidine IV* 10 MG/ML 2 ML (20 mg) IV SCH (21:00)
[2018-10-16 07:08] LABS: Hematocrit 29 % (42-52); Hemoglobin 10.4 g/dl (14.0-18.0); Mean Corpuscular HGB Conc 36 g/dl (31-36); Mean Corpuscular Hemoglobin 35 pg (27-31); Mean Corpuscular Volume 99 fL (80-94); Mean Platelet Volume 7.4 fL (7.4-10.4); Platelet Count 118 10^3/ul (150-450); Red Blood Count 2.94 10^6/ul (4.00-5.40); Red Cell Distribution Width 14 % (10.5-15); White Blood Count 4.1 10^3/ul (3.5-10.8)
[2018-10-16 07:43] LABS: Albumin 3.3 g/dL (3.2-5.2); Albumin/Globulin Ratio 1.2 (1-3); BUN/Creatinine Ratio 9.9 (8-20); Calcium 8.7 mg/dL (8.6-10.3); EGFR Non-African American 48.7 (>60); Globulin 2.7 g/dL (2-4); Potassium 3.7 mmol/L (3.5-5.0); Total Bilirubin 0.5 mg/dL (0.2-1.0)
[2018-10-16] MEDS: amLODIPine TAB* 5 MG PO SCH (08:25)
[2018-10-16] MEDS: Metoprolol Succinate XL TAB* 100 MG PO SCH (08:25)
[2018-10-16] MEDS: Pantoprazole IV* 40 MG IV SCH (08:25)
[2018-10-16] MEDS: Losartan TAB* 25 MG PO SCH (08:26)
[2018-10-16 11:27] VITALS: BP 126/58
--- NOTE | 2018-10-18 22:50 | DS ---
CC: Dr. Ian Meadows; Dr. Kaveh Finley * DISCHARGE SUMMARY: DATE OF ADMISSION: 10/11/18 DATE OF DISCHARGE: 10/16/18 PRIMARY CARE PROVIDER: Dr. Ian Meadows. OUTPATIENT [employer] PRINCIPAL: Dr. Kaveh Finley. ATTENDING PROVIDER: Abby Pemberton MD * (DICTATED BY RAMEZ HICKEY) PRIMARY DISCHARGE DIAGNOSES: 1. Gastric and duodenal ulcers. 2. Pancreatitis. SECONDARY DISCHARGE DIAGNOSES: 1. Coronary artery disease. 2. Peripheral vascular disease. 3. Benign prostatic hyperplasia. 4. Chronic back pain. 5. Chronic obstructive pulmonary disease. 6. History of colon cancer and hemicolectomy. STUDIES DONE WHILE IN THE HOSPITAL: Abdomen and pelvis CT from 10/11/18 read as there is periduodenal inflammatory change. There is soft tissue density within the wall of the duodenum in second stage of unclear etiology. There is a filling defect in the fundus of the stomach, which may represent artifact from food versus an endophytic polypoid mucosal lesion in the stomach. There is atherosclerotic disease of the abdominal aorta and its branches with right greater than left, ostial stenosis of the right renal artery, the right kidney is small and hypoperfused compared to the left which suggests flow-limiting stenosis, and fatty infiltration of the liver. Gallbladder ultrasound from 10/11/[address] evidence to correlate the patient's symptomatology. Simple right renal cysts with nonobstructing calculus. MRCP from 10/11/18 read as acute interstitial edematous pancreatitis, modified CT severity index 2, Bosniak type 1 renal cyst. No followup indicated. Abdomen x-ray from 10/13/18 read as no radiographic findings to correlate the patient's symptomatology. 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 MEDICATIONS AT DISCHARGE: 1. Atorvastatin 40 mg p.o. daily. 2. Tramadol 50 mg p.o. q.6 hours as needed. 3. Metoprolol succinate 100 mg p.o. daily. 4. Nitroglycerin 0.4 mg sublingually as needed for chest pain. 5. Tylenol 650 mg p.o. q.4 hours as needed. 6. Amlodipine 5 mg p.o. daily. 7. Losartan 100 mg p.o. daily. 8. Ranitidine 150 mg p.o. q.p.m. 9. Pantoprazole 40 mg p.o. b.i.d. HOSPITAL COURSE: This is a brief summary of the patient's presentation. For more details, please see the history and physical from Carito José NP , on 10/11/18. In brief, the patient is a 77-year-old male with past medical history significant for the above, who came into the emergency department for a 1-week history of right-sided abdominal pain primarily after he ate. The patient was also having some constipation and having Fleet Enema. The patient had studies done as above while he was admitted to the hospital. The patient's initial lipase was elevated. The patient was made n.p.o. and given fluids. The patient had an EGD in the emergency department, which showed findings as above. The patient had been on b.i.d. pantoprazole for a prolonged period of time and had run out 1 week before. The patient had biopsies, which showed no signs of malignant cells or H. pylori organisms. The patient had not been taking any NSAIDs or had any other provoking factors for his lesions or pain. He has had an MRCP which showed no gallbladder pathology as well as a gallbladder ultrasound which was read as above. The patient initially improved greatly with conservative treatment and his diet was able to be advanced on ; however, the patient again had severe abdominal pain until 10/14/18 with a recurrent increase in his lipase. The patient again had conservative treatment for pancreatitis instituted and he again improved with his lipase decreasing back down to normal. The patient's blood pressure while in the hospital was persistently elevated and amlodipine was added and his losartan was increased. The cause of the patient's pancreatitis was unclear; however, inflammatory changes from his duodenal ulcer seemed to be the most reasonable explanation. The patient had b.i.d. PPI therapy as well as evening ranitidine while in the hospital. This was continued. The patient had a gastrin level, which was normal. The patient has renal insufficiency with creatinine around 1.4. The patient also has some chronic macrocytic anemia. His discharge hemoglobin was 10.4. The patient had vitamin B12 and folate level drawn earlier this year as well as TSH, all of which were normal. The patient was asymptomatic on 10/16/18 and stable and amenable for discharge with improved control of his blood pressure. PHYSICAL EXAM ON THE DAY OF DISCHARGE: Vital Signs: Temperature 98.1, pulse 52 , respiratory rate 16, blood pressure 126/58. General: The patient is a 77-year -old male who appears his stated age and sitting comfortably in the bed in no acute distress. HEENT: Head normocephalic, atraumatic. Sclerae anicteric. No conjunctival injection. Nasal mucosa moist. Oral mucosa moist. No pharyngeal erythema, discharge, or exudate. Neck: Supple. No lymphadenopathy. No carotid bruit auscultated. No JVD. Cardiac: Regular rate and rhythm. No clicks, murmurs, gallops, or rubs. Pulses 2+ in the bilateral dorsalis pedis , posterior tibialis, and radial areas. Respiratory: Clear to auscultation bilaterally. No wheezes, rales, or rhonchi. Good air exchange bilaterally. Abdomen: Soft, nontender, nondistended. Bowel sounds present. Normoactive in all 4 quadrants. No hepatosplenomegaly. No abdominal bruits auscultated. No hepatojugular reflux. Genitourinary: No suprapubic or CVA tenderness. Skin: Clean, dry, and intact. No rash. Neuro: Cranial nerves II through XII intact. No focal deficits. Alert and oriented x3. Psychiatric: Pleasant and cooperative. DISCHARGE PLAN: The patient will be discharged to home. The patient will be on b.i.d. pantoprazole as well as ranitidine. The patient had ulcers despite b.i.d. PPI therapy. The patient had ulcers as above and will need a repeat EGD in 3 weeks. The underlying cause of the patient's ulcers is currently unclear. The patient's gastrin level is normal. This may just be due to the patient running out of his PPI. However, the patient also has signs of blunted villi on his duodenum, and the possibility of inflammatory bowel disease and other intestinal pathology should be discussed with his outpatient studio control operator , Dr. Finley. The patient is H. pylori negative. The patient should avoid NSAIDs. The patient's aspirin has been stopped while in the hospital. This should be restarted if possible after the patient's ulcers resolve. The patient 's pancreatitis, given the lack of other explanation, was likely either idiopathic or related to the inflammatory changes in his duodenum. The patient' s main duodenal ulcer was not biopsied; this should be biopsied if it is present on followup EGD. The patient incidentally was found to have a stenotic renal artery on his exam. Given his hard- to-control blood pressure while in the hospital as well as his increased creatinine, followup ultrasound and possible stenting should be considered for his chronic kidney disease and [id number] hypertension. The patient should have a repeat CBC and BMP in 1 week when he follows up with his primary care provider to assess for possible worsening anemia or chronic kidney disease. The patient should return to the hospital for recurrent severe abdominal pain, high fevers, inability to tolerate p.o. intake, chest pain, shortness of breath, or other lung symptoms. TIME SPENT: Approximately 60 minutes was spent on the discharge of this patient , 30 of which was spent [id number] with the patient obtaining history and physical and discussing treatment plan. RAMEZ HICKEY [id number]/[facility] #: [id number] BIRD
== END 2018-10-16 12:52 | disposition home or self-care (01) | DRG 383 ==
LOC: ED 06:36 → MEDTELE 17:27
PROVIDERS: ADMIT Internal Medicine; ATTEND Internal Medicine
PROC: 0DB98ZX Excision of Duodenum, Via Natural or Artificial Opening Endoscopic, Diagnostic (ICD-10-PCS; principal; 2018-10-11)
PROC: 0DB78ZX Excision of Stomach, Pylorus, Via Natural or Artificial Opening Endoscopic, Diagnostic (ICD-10-PCS; 2018-10-11)
PROC: 0DB68ZX Excision of Stomach, Via Natural or Artificial Opening Endoscopic, Diagnostic (ICD-10-PCS; 2018-10-11)
PROC: 0DB98ZX Excision of Duodenum, Via Natural or Artificial Opening Endoscopic, Diagnostic (ICD-10-PCS; 2018-10-11)
PROC: 0DB98ZX Excision of Duodenum, Via Natural or Artificial Opening Endoscopic, Diagnostic (ICD-10-PCS; 2018-10-11)
PROC: 0DB98ZX Excision of Duodenum, Via Natural or Artificial Opening Endoscopic, Diagnostic (ICD-10-PCS; 2018-10-11)
DX: K26.9 Duodenal ulcer, unspecified as acute or chronic, without hemorrhage or perforation (principal); K85.90 Acute pancreatitis without necrosis or infection, unspecified; K25.9 Gastric ulcer, unspecified as acute or chronic, without hemorrhage or perforation; I25.10 Atherosclerotic heart disease of native coronary artery without angina pectoris; J44.9 Chronic obstructive pulmonary disease, unspecified; N40.0 Benign prostatic hyperplasia without lower urinary tract symptoms; M15.9 Polyosteoarthritis, unspecified; K22.70 Barrett's esophagus without dysplasia; G47.33 Obstructive sleep apnea (adult) (pediatric); I12.9 Hypertensive chronic kidney disease with stage 1 through stage 4 chronic kidney disease, or unspecified chronic kidney disease; E11.22 Type 2 diabetes mellitus with diabetic chronic kidney disease; N18.9 Chronic kidney disease, unspecified; H26.9 Unspecified cataract; H40.9 Unspecified glaucoma; G89.29 Other chronic pain; D63.1 Anemia in chronic kidney disease; M54.9 Dorsalgia, unspecified; N20.0 Calculus of kidney; K59.00 Constipation, unspecified; N28.1 Cyst of kidney, acquired; K29.80 Duodenitis without bleeding; R00.0 Tachycardia, unspecified; Z90.49 Acquired absence of other specified parts of digestive tract; K76.0 Fatty (change of) liver, not elsewhere classified; Z72.89 Other problems related to lifestyle; Z87.891 Personal history of nicotine dependence; Z95.820 Peripheral vascular angioplasty status with implants and grafts; Z88.5 Allergy status to narcotic agent; Z88.8 Allergy status to other drugs, medicaments and biological substances; Z95.5 Presence of coronary angioplasty implant and graft; Z86.718 Personal history of other venous thrombosis and embolism; Z87.11 Personal history of peptic ulcer disease; Z85.038 Personal history of other malignant neoplasm of large intestine; E11.51 Type 2 diabetes mellitus with diabetic peripheral angiopathy without gangrene
CPT/HCPCS: 36415; 74019; 74177; 74181; 76376; 76705; 80048; 80053; 82150; 82656; 82941; 83605; 83630; 83690; 83735; 85025; 85027; 85610; 86140; 87045; 87046; 87077; 87338; 87899; 88305; 94660; 99156; 99157; 99284; A9270-GY; J0360; J2250; J2270; J3010; Q9967

== ENCOUNTER 2018-10-18 17:17 | Observation (INO) | payer MEDICARE ==
--- NOTE | 2018-10-18 17:50 | ED ---
Neurological HPI - HPI Summary HPI Summary: Patient is a 77 y/o M presenting to ED with complaints of an episode of expressive and receptive aphasia and still present frontal STOREY. , who is a nurse, is present in the room, gives the history. She states that at 1620, the two of them were cooking when she asked him to turn down the heat of the stove. He responded, "What am I supposed to do with the food?" She told him again, he responded "I don't know what to do with the food" repeatedly. states that he was oriented to month but when asked what his is, he gives incorrect answer. She states that patient eventually began to have "word salad", giving inappropriate responses to questions. This lasted 5 minutes. administered some neurological tests which patient had difficulty following, noting that patient would pinch his fingers together when asked to do finger to nose. She reports equal hand pre kindergarten teacher strength throughout the episode, no extremity weakness. Patient was able to walk and stand but describes gait as "guarded". Upon arrival , states that patient's Sx have resolved. In the room, agrees that patient is at baseline. Patient denies recent falls. Patient has PMHx of pancreatitis w/ duodenal ulcer, patient was admitted for five days, discharged two days ago. PMHx of emphysema. Fever, chills, erythema of eyes, sore throat, chest pain, SOB, cough, abdominal pain, N/V, dysuria, hematuria, myalgia, edema, rash and dizziness are not reported. On triage, pain is rated 6/10, nothing is noted to aggravate/ alleviate Sx. Home medications and allergies are reviewed. - History of Current Complaint Chief Complaint: EDHeadache Stated Complaint: AMS Time Seen by Provider: 10/18/18 17:39 Hx Obtained From: Patient Onset/Duration: Started hours ago - onset 1620, Resolved Timing: Intermittent Episodes Lasting: - 5 minutes Current Severity: Severe - 6/10 Neurological Deficit Location: Generalized Headache Location: Frontal Pain Intensity: 6 Pain Scale Used: 0-10 Numeric - 6/10 Character: Impaired Speech - aphasic, Other: - Fever, chills, erythema of eyes, sore throat, chest pain, SOB, cough, abdominal pain, N/V, dysuria, hematuria, myalgia, edema, rash and dizziness are not reported. Headache is endorsed Aggravating: Nothing Alleviating: Nothing Associated Signs and Symptoms: Positive: Headache, Impaired Speech. Negative: Dizziness, Nausea/Vomiting, Fever, Chest Pain, Shortness of Breath - Additional Pertinent History Primary Care Physician: KATIE - Allergy/Home Medications Allergies/Adverse Reactions: Allergies Allergy/AdvReac Type Severity Reaction Status Date / Time codeine Allergy Rash Verified 10/11/18 07:02 lisinopril Allergy SEVERE Verified 10/11/18 07:02 COUGHING carisoprodol [From Soma] AdvReac Severe Dizziness Verified 10/11/18 07:02 oxycodone AdvReac GI Upset Verified 10/11/18 07:02 PMH/Surg Hx/FS Hx/Imm Hx Endocrine/Hematology History: Reports: Hx Anemia - DUE TO MEDS Denies: Hx Diabetes, Hx Thyroid Disease Cardiovascular History: Reports: Hx Angina - STATES NONE SINCE STNETS INSERTED 2011, Hx Coronary Artery Disease - 7 STENTS, 2011; DR TONY, Hx Deep Vein Thrombosis - had embolectomy, Hx Hypercholesterolemia, Hx Hypertension - ON MEDS , Hx Peripheral Vascular Disease - 07/2019 LT FEMERAL ARTERY BYPASS SURGERY, Other Cardiovascular Problems/Disorders - 7 stents placed in 2011 Denies: Hx Pacemaker/ICD Respiratory History: Reports: Hx Chronic Obstructive Pulmonary Disease (COPD), Hx Sleep Apnea, Other Respiratory Problems/Disorders - 50 YR SMOKER Denies: Hx Asthma GI History: Denies: Hx Ulcer, Other GI Disorders History: Reports: Hx Benign Prostatic Hyperplasia, Other Problems/ Disorders - enlarged prostate Denies: Hx Renal Disease Musculoskeletal History: Reports: Hx Arthritis - GENERALIZED, Hx Back Problems - low back, Other Musculoskeletal History - [facility] 03/16 Eidural 2016 Sensory History: Reports: Hx Cataracts - BILATERAL, Hx Contacts or Glasses - reading glasses, Hx Glaucoma - Hx OF, [id number] Denies: Hx Hearing Aid Opthamlomology History: Reports: Hx Cataracts - BILATERAL, Hx Contacts or Glasses - reading glasses, Hx Glaucoma - Hx OF, [id number] Neurological History: Comment Only: Other Neuro Impairments/Disorders - PAIN CL[facility] PT. Psychiatric History: Denies: Hx Panic Disorder - Cancer History Cancer Type, Location and Year: [place] Hx Chemotherapy: No Hx Radiation Therapy: No - Surgical History Surgery Procedure, Year, and Place: 1956-appendectomy,. 03/1999-Hemicollectomy w /end to end anastamosis,. [id number]-Znu bypass right to left,. 03/2006- Thrombolectomy & stent placement in LEFT fem graft site, Cardiac Cath-February 20 & 2011 with 5 stents in RT coronary artery(RESOLUTE INTEGRITY PER MRI SAFETY CONDITIONAL 5 OK FOR 1.5 OR 3T), Cardiac cath February 25 2012 with 2 stents in LEFT circumflex artery (RESOLUTE INTEGRITY PER MRI SAFEY CONDITIONAL 5 OK FOR 1.5 OR 3T). CATARACTS. Lt GROIN - PSUEDOANEURYSM ( OP REPORT IN W/ PREV MRI - PACS DACRON USED NO METAL CLIPS OR COILS)- 07/2016 - [facility] (W/ DR HANDY - VASCULAR SURG - [phone]). TURP - 10/2016 Hx Anesthesia Reactions: No Infectious Disease History: No Infectious Disease History: Denies: Hx Clostridium Difficile, Hx Hepatitis, Hx Human Immunodeficiency Virus (HIV), Hx of Known/Suspected MRSA, Hx Shingles, Hx Tuberculosis, Hx Known/ Suspected VRE, Hx Known/Suspected VRSA, History Other Infectious Disease, Traveled Outside the [place] in Last 30 Days - Family History Known Family History: Negative: Diabetes - Social History Alcohol Use: Rare Alcohol Amount: 1x month Substance Use Type: Reports: None Smoking Status (MU): Former Smoker Type: Cigarettes Amount Used/How Often: 1-2 PPD, THEN DOWN TO 1/2PPD 50 YRS Have You Smoked in the Last Year: No Review of Systems Negative: Fever, Chills Negative: Erythema Negative: Sore Throat Negative: Chest Pain Negative: Shortness Of Breath, Cough Negative: Vomiting, Nausea Negative: dysuria, hematuria Negative: Myalgia, Edema Negative: Rash Neurological: Other - POSITIVE - EXPRESSIVE AND RECEPTIVE APHASIA; NEGATIVE - DIZZINESS Positive: Headache All Other Systems Reviewed And Are Negative: Yes Physical Exam - Summary Physical Exam Summary: Constitutional: Well-developed, Well-nourished, Alert. (-) Distressed Skin: Warm, Dry HENT: Normocephalic; Atraumatic Eyes: Conjunctiva normal Neck: Musculoskeletal ROM normal neck. (-) JVD, (-) Stridor, (-) Tracheal deviation Cardio: Rhythm regular, rate normal, Heart sounds normal; Intact distal pulses; The pedal pulses are 2+ and symmetric. Radial pulses are 2+ and symmetric. (-) Murmur Pulmonary/Chest wall: Effort normal. (-) Respiratory distress, (-) Wheezes, (-) Rales Abd: Soft. (-) Tenderness, (-) Distension, (-) Guarding, (-) Rebound Musculoskeletal: (-) Edema Lymph: (-) Cervical adenopathy Neuro: Alert, Oriented x3, Strength normal, Cranial nerves II-XII are grossly intact. (-) Dysmetria, (-) Nystagmus, (-) Ataxia by finger to nose testing, (-) Sensory deficit. GCS 15, NIH 0. Psych: Mood and affect Normal Triage Information Reviewed: Yes Vital Signs On Initial Exam: Initial Vitals Temp Pulse Resp BP Pulse Ox 96.5 F 71 20 199/84 92 10/18/18 17:23 10/18/18 17:23 10/18/18 17:23 10/18/18 17:23 10/18/18 17:23 Vital Signs Reviewed: Yes Diagnostics - Vital Signs Vital Signs Temp Pulse Resp BP Pulse Ox 10/18/18 17:23 96.5 F 71 20 199/84 92 - Laboratory Result Diagrams: 10/20/18 05:43 10/20/18 05:43 Lab Statement: Any lab studies that have been ordered have been reviewed, and results considered in the medical decision making process. - Radiology CXR Radiology Interpretation Completed By: Radiologist Summary of Radiographic Findings: CXR IMPRESSION: There is faint linear density at the left lung base morphologically most. consistent with atelectasis in this otherwise nonacute chest x-ray. THIS REPORT WAS REVIEWED BY ED PHYSICIAN. - CT BRAIN CT CT Interpretation Completed By: Radiologist Summary of CT Findings: BRAIN CT IMPRESSION: 1. No acute intracranial pathology. 2. Other chronic findings, as above. THIS REPORT WAS REVIEWED BY ED PHYSICIAN. CTA HEAD/NECK CT Interpretation Completed By: Radiologist Summary of CT Findings: CTA HEAD. IMPRESSION: No intracranial arterial occlusion or hemodynamically significant stenosis. THIS REPORT WAS REVIEWED BY ED PHYSICIAN. CTA NECK. IMPRESSION: 1. Approximately 25% stenosis of the proximal extracranial right ICA. 2. Moderate to severe stenosis of the origins of the bilateral external carotid. arteries. THIS REPORT WAS REVIEWED BY ED PHYSICIAN. - EKG 1850 Cardiac Rate: NL - rate of 72 BPM EKG Rhythm: Sinus Rhythm Summary of EKG Findings: EKG showed sinus rhythm with rate of 72 BPM, no STEMI. NIH Scale - NIH Scale Level of Consciousness: Alert/Keenly Responsive Ask Patient the Month and His/Her Age: Both Correct Ask Pt to Open/Close Eyes and [employer]el[employer] Data Entry/Release Non-Paretic Hand: Both Correctly Best Gaze (Only Horizontal Eye Movement): Normal Visual Field Testing: No Visual Loss Facial Paresis-Pt to Smile & Close Eyes or Grimace Symmetry: Normal/Symmetrical Motor Function - Right Arm: No Drift-Holds 10 Seconds Motor Function - Left Arm: No Drift-Holds 10 Seconds Motor Function - Right Leg: No Drift-Holds 10 Seconds Motor Function - Left Leg: No Drift-Holds 10 Seconds Limb Ataxia-Must be out of Proportion to Weakness Present: Absent Sensory (Use Pinprick to Test Arms/Legs/Trunk/Face): Normal Best Language (Describe Picture, Name Items): No Aphasia Dysarthria (Read Several Words): Normal Extinction and Inattention: No Abnormality Total Score: 0 Re-Evaluation - Re-Evaluation First Eval Re-Evaluation Time: 20:57 Comment: Results of labs and tests were discussed, he is agreeable with admission. Course/Dx - Course Course Of Treatment: Patient is a 77 y/o M presenting to ED with complaints of an episode of expressive aphasia and still present frontal STOREY. , who is a nurse, is present in the room, gives the history. She states that at 1620, the two of them were cooking when she asked him to turn down the heat of the stove. He responded, "What am I supposed to do with the food?" She told him again, he responded "I don't know what to do with the food" repeatedly. states that he was oriented to month but when asked what his is, he gives incorrect answer. She states that patient eventually began to have "word salad", giving inappropriate responses to questions. This lasted 5 minutes. administered some neurological tests which patient had difficulty following, noting that patient would pinch his fingers together when asked to do finger to nose. She reports equal hand pre kindergarten teacher strength throughout the episode, no extremity weakness. Patient was able to walk and stand but describes gait as "guarded". Upon arrival , states that patient's Sx have resolved. In the room, agrees that patient is at baseline. Patient denies recent falls. Patient has PMHx of pancreatitis w/ duodenal ulcer, patient was admitted for five days, discharged two days ago. PMHx of emphysema. On physical exam, patient is Alert, Oriented x3, Strength normal, Cranial nerves II-XII are grossly intact. (-) Dysmetria, (- ) Nystagmus, (-) Ataxia by finger to nose testing, (-) Sensory deficit. GCS 15, NIH 0. EKG showed sinus rhythm with rate of 72 BPM, no STEMI. CXR IMPRESSION: There is faint linear density at the left lung base morphologically most. consistent with atelectasis in this otherwise nonacute chest x-ray. BRAIN CT IMPRESSION: 1. No acute intracranial pathology. 2. Other chronic findings, as above. CTA HEAD. IMPRESSION: No intracranial arterial occlusion or hemodynamically significant stenosis. CTA NECK. IMPRESSION: 1. Approximately 25% stenosis of the proximal extracranial right ICA. 2. Moderate to severe stenosis of the origins of the bilateral external carotid. arteries. Labs showed RBC 3.54, Hgb 12.2, Hct 35, MCV 100, MCH 34, creatinine 1.53, glucose 107 , lactic acid 0.8, trop 0. UA showed 1+ protein, blood, trace WBC, RBC, no glucose, bacteria. During ED course, patient received 324 ASA. Patient's case was discussed with Dr. Cervantes at 2046, Dr. Cervantes notes that the CTA head/ neck report shows stenosis at the external carotid arteries as opposed to internal. 2049 - Dr. Sotelo was consulted on patient's case, Dr. Sotelo accepts for admission. Results of labs and tests were discussed, he is agreeable with admission. - Diagnoses Provider Diagnoses: TIA (transient ischemic attack) - Physician Notifications Discussed Care Of Patient With: Dania Cervantes Time Discussed With Above Provider: 20:47 Instructed by Provider To: Other - Patient's case was discussed with Dr. Cervantes at 2046, Dr. Cervantes notes that the CTA head/neck report shows stenosis at the external carotid arteries as opposed to internal. 2049 - Dr. Sotelo was consulted on patient's case, Dr. Sotelo accepts for admission. Discharge - Sign-Out/Discharge Documenting (check all that apply): Patient Departure - admit - Discharge Plan Condition: Good Disposition: ADMITTED TO [facility] - Billing Disposition and Condition Condition: GOOD Disposition: Admitted to [facility] - Attestation Statements Document Initiated by Magedibdavy: Yes Documenting Scribe: ALEXIS ONEAL Provider For Whom Nina is Documenting (Include Credential): TERRY HURTADO MD Scribe Attestation: IALEXIS , scribed for TERRY HURTADO MD on 10/20/18 at 2047. Scribe Documentation Reviewed: Yes Provider Attestation: The documentation as recorded by the magedibALEXIS bhatti accurately reflects the service I personally performed and the decisions made by me, TERRY HURTADO MD Status of Scribe Document: Viewed
[2018-10-18 18:06] LABS: ABS Basophils 0 10^3/ul (0-0.2); ABS Eosinophils 0 10^3/ul (0-0.6); ABS Monocytes 0.6 10^3/ul (0-0.8); ABS Neutrophils 3.1 10^3/ul (1.5-7.7); ABS Nucleated RBC 0 10^3/ul; Hematocrit 35 % (42-52); Hemoglobin 12.2 g/dl (14.0-18.0); Lymphocyte % 20.9 %; Mean Corpuscular HGB Conc 34 g/dl (31-36); Mean Corpuscular Hemoglobin 34 pg (27-31); Mean Corpuscular Volume 100 fL (80-94); Nucleated Red Blood Cells % 0; Platelet Count 166 10^3/ul (150-450); Red Blood Count 3.54 10^6/ul (4.00-5.40); Red Cell Distribution Width 14 % (10.5-15); White Blood Count 4.8 10^3/ul (3.5-10.8)
[2018-10-18 18:17] LABS: Albumin 4.2 g/dL (3.2-5.2); Albumin/Globulin Ratio 1.2 (1-3); BUN/Creatinine Ratio 13.1 (8-20); Calcium 9.7 mg/dL (8.6-10.3); EGFR Non-African American 44.4 (>60); Globulin 3.5 g/dL (2-4); Potassium 4.2 mmol/L (3.5-5.0); Total Bilirubin 0.5 mg/dL (0.2-1.0); Total Protein 7.7 g/dL (6.4-8.9)
[2018-10-18] MEDS ORDERED: Iodixanol* (CONTRAST) 320 MG/ML 100 ML SDV IV ONE (18:48)
[2018-10-18 19:38] LABS: Urine Appearance Clear; Urine Bacteria Absent (Absent); Urine Bilirubin Negative (Negative); Urine Blood 1+ (Negative); Urine Color Straw; Urine Glucose Negative (Negative); Urine Ketones Negative (Negative); Urine Nitrite Negative (Negative); Urine Protein 1+(30 mg/dL) (Negative); Urine Red Blood Cell Trace(0-2/hpf) (Absent); Urine Urobilinogen Negative (Negative); Urine White Blood Cell Trace(0-5/hpf) (Absent)
[2018-10-18] MEDS ORDERED: Aspirin 81 mg CHEW TAB* 81 MG TAB.CHEW PO ONE (20:51)
[2018-10-18] MEDS ORDERED: Ondansetron INJ* 2 MG/ML VIAL IV PRN (21:31)
[2018-10-18] MEDS ORDERED: Acetaminophen TAB* 325 MG PO PRN (21:31)
[2018-10-18] MEDS ORDERED: Al Hydrox/Mg Hydrox/Simet LIQ* 30 ML UDC PO PRN (21:31)
[2018-10-18] MEDS ORDERED: traMADol TAB* 50 MG PO PRN (21:33)
[2018-10-18] MEDS ORDERED: Famotidine TAB* 20 MG PO SCH (22:00)
[2018-10-18] MEDS: Heparin VIAL(*) 5000 UNITS/ML VIAL (FIVE THOUSAND) SUBCUT SCH (23:43)
[2018-10-19] MEDS: Heparin VIAL(*) 5000 UNITS/ML VIAL (FIVE THOUSAND) SUBCUT SCH ×2 (05:19→18:18)
[2018-10-19 05:51] LABS: ABS Basophils 0 10^3/ul (0-0.2); ABS Eosinophils 0.1 10^3/ul (0-0.6); ABS Lymphocytes 1.3 10^3/ul (1.0-4.8); ABS Monocytes 0.5 10^3/ul (0-0.8); ABS Neutrophils 2.2 10^3/ul (1.5-7.7); ABS Nucleated RBC 0 10^3/ul; Eosinophil % 1.7 %; Hematocrit 32 % (42-52); Hemoglobin 10.6 g/dl (14.0-18.0); Lymphocyte % 31.1 %; Mean Corpuscular HGB Conc 34 g/dl (31-36); Mean Corpuscular Hemoglobin 34 pg (27-31); Mean Corpuscular Volume 102 fL (80-94); Mean Platelet Volume 7.9 fL (7.4-10.4); Nucleated Red Blood Cells % 0.1; Platelet Count 141 10^3/ul (150-450); Red Cell Distribution Width 14 % (10.5-15)
[2018-10-19 06:21] LABS: BUN/Creatinine Ratio 15.1 (8-20); Calcium 9.2 mg/dL (8.6-10.3); EGFR Non-African American 44.7 (>60); Potassium 3.7 mmol/L (3.5-5.0)
--- NOTE | 2018-10-19 06:36 | HP ---
CC: Dr. Meadows * HISTORY AND PHYSICAL: DATE OF ADMISSION: 10/18/18 TIME OF EVALUATION: 2099 PRIMARY CARE PHYSICIAN: Dr. Meadows. CHIEF COMPLAINT: Altered mental status. HISTORY OF PRESENT ILLNESS: This is a 77-year-old male with a past medical history of hypertension, hyperlipidemia, and coronary artery disease, who was just recently admitted for pancreatitis, had been home for 2 days, when he became acutely altered. His , who is a retired nurse, provided the history stating she was cooking in the kitchen and she had asked him to help clean the pots and he got very confused and he did not know what to do and he was just standing there and he seemed agitated and he kept perseverating on the fact that he did not know what to do. Then, she stated he seemed to be able to speak clearly, but his words did not make any sense and he seemed to having word -finding difficulty. He was ambulating, but she thought he did not seem to know where he was going. There was no weakness. She did a neuro exam on him that did not show any focal weakness. He did have a hard time following instructions and doing the eakcym-jx-tudl test. Because of this, he was brought to the emergency room for further evaluation. The episode lasted for about 5 minutes. By the time he arrived to the emergency room, he was back to his baseline. This occurred around 4:20 this afternoon. He states he has a frontal headache at this time. No nausea, vomiting, or diarrhea. No abdominal pain. No chest pain. No shortness of breath. No urinary symptoms. He was sent home on new medications at discharge. No opioids or any medications that would contribute to his mental status. He was stopped on his aspirin due to the fact that he was diagnosed with a gastric ulcer, so he has been off his full -dose aspirin. Otherwise, remaining review of systems is negative. In the emergency room, the patient had labs and imaging. He was given a full dose of aspirin. Neurology was called and they recommended admission for further evaluation. PAST MEDICAL HISTORY: 1. Hypertension. 2. Hyperlipidemia. 3. Recent admission this month for pancreatitis. 4. Arthritis. 5. Chronic back pain. 6. BPH. 7. Coronary artery disease, status post stenting. 8. Cataracts. 9. Obstructive sleep apnea, on CPAP. 10. Recent diagnosis of a large duodenal ulcer. PAST SURGICAL HISTORY: 1. Appendectomy in 1957. 2. Hemicolectomy, 1998. 3. Fem-fem bypass, 2004. 4. Thrombectomy and stent placement in some graft site, 2005. 5. Squamous cell cancer, status post resection on the left forearm. 6. Cataract surgery. MEDICATIONS: 1. Norvasc 5 mg p.o. daily. 2. Atorvastatin 40 mg daily. 3. Protonix 40 mg p.o. b.i.d. 4. Losartan 100 mg p.o. daily. 5. Metoprolol ER 100 mg daily. 6. Ranitidine 150 mg every evening. 7. Nitro as needed. 8. Tramadol 50 mg every 4 hours as needed. Per , he has only been taking this daily. ALLERGIES: TYLENOL with CODEINE, SOMA, and OXYCODONE. FAMILY HISTORY: Reviewed and noncontributory. SOCIAL HISTORY: He lives at home with his , Evita, who is his healthcare proxy. He is independent of his ADLs. He quit smoking back in 2011, he had a pack every 3 days for 50 years. Rare alcohol use. No illicit drug use. CODE STATUS: Full code. REVIEW OF SYSTEMS: A 14-point review of systems as mentioned in the HPI, otherwise negative. PHYSICAL EXAMINATION GENERAL: No acute distress, resting comfortably, with his at the bedside. VITAL SIGNS: Temp is 96.5, pulse 75, respiratory rate 16, oxygen saturation 96 % on room air, blood pressure 166/82. HEENT: Head normocephalic. Pupils are equal and reactive, anicteric. Oropharynx: Mucous membranes are moist. NECK: Supple. No lymphadenopathy. RESPIRATORY: Clear to auscultation. No wheezes, rhonchi, or rales. CARDIAC: Regular rate and rhythm. Systolic murmur, most prominent at the right sternal base. ABDOMEN: Soft, nontender, nondistended. EXTREMITIES: No clubbing, cyanosis, or edema. +1 DPs. NEUROLOGIC: Alert and oriented x3. Cranial nerves II through XII intact. He speaks out of his right side of his mouth, which is his baseline. Pronator drift negative. Upper and lower muscle strength equal and symmetric. Heel-to- ledezma test is normal. LABORATORY DATA: White count is 4.8, hemoglobin 12.2, hematocrit 35, platelets 166. INR is 1.14. Sodium 137, potassium 4.2, chloride 102, bicarb 29 , BUN 20, creatinine 1.53, glucose 107. Troponin is 0. Urinalysis unremarkable. RADIOGRAPHIC DATA: Head CT shows no acute intracranial pathology. Chest x-ray shows that there are faint linear densities at the left lung base, morphological , most consistent with atelectasis. Head CTA, approximately 25% stenosis of the proximal extracranial right ICA, qdybmbke-lz-aatxkl stenosis at the origin of the bilateral external carotid arteries. EKG shows normal sinus rhythm. ASSESSMENT: This is a 77-year-old male with a past medical history of hypertension, hyperlipidemia, and coronary artery disease, who presents to the emergency room with acute onset of altered mental status with agitation, expressive aphasia. 1. Altered mental status: Assessment: The patient with agitation and what appears to be expressive aphasia with word-finding difficulty that lasted for about 5 minutes. He is high risk for transient ischemic attack, cerebrovascular accident and was just stopped off his aspirin due to his peptic ulcer disease. His neuro exam is benign at this time and his workup is unremarkable. Plan: We will admit him for observation and workup for TIA and stroke. We will admit him to [address] [place] [address]. We will do a bedside swallow and continue him on a full-dose aspirin. We will order an MRI and an echo and physical therapy and follow up with Dr. Bowman in the morning for any further recommendations and check a lipid panel as well. We will hold his amlodipine and losartan in the setting of allowing for permissive hypertension. 2. Acute kidney injury. The patient with an elevated creatinine with a normal BUN. He was increased on his losartan on prior admission. Plan: As mentioned above, we will hold his losartan. We will check FENa and renally dose his medications. 3. Chronic medical problems. We will continue his remaining medications as above. Of note, his tramadol, he has only been taking once a day, we will order b.i.d. as needed and which will also be renally dosed. 4. FEN. N.p.o. until he has his bedside swallow, then we will start him on a heart-healthy diet. 5. DVT prophylaxis. The patient scores high risk, placed him on heparin subcutaneous t.i.d. 6. Code status. Full code. PATIENT TIME: Greater than 50 minutes spent doing the history and physical, more than half the time spent in direct patient contact. [id number]/[facility] #: [id number] BIRD
[2018-10-19] MEDS: Metoprolol Succinate XL TAB* 100 MG PO SCH (08:27)
[2018-10-19] MEDS ORDERED: Aspirin TAB* 325 MG PO SCH (09:00)
[2018-10-19] MEDS ORDERED: Omeprazole CAP* 20 MG PO SCH (09:00)
--- NOTE | 2018-10-19 09:44 | ECHO ---
Patient: CARA FARNSWORTH [facility] Rec#: [id number] : 1940 Date: 10/19/2018 Age: 77y Height: 160.02 cm / 63.0 in Weight: 72.57 kg / 159.9 lbs Sex: M BSA: 1.76 Room#: 436 Admit Date#: 10/18/2018 Type: Inpatient Referring: Goldei Sotelo Reading: Chao Graham MD Academic Affairs Coordinator: Dania Null RDCS CC: Ian Meadows MD Transthoracic Echocardiogram Indication: TIA BP: 114/52 HR: 64 Rhythm: NSR Findings History: HTN,HLD,CAD s/p PCI,LELA with CPAP. Technical Comments: The study quality is good. Completed at 0827. Left Ventricle: The left ventricular chamber size is normal. The estimated ejection fraction is 55-60%. Abnormal left ventricular diastolic function is observed. Abnormal left ventricular diastolic filling is observed, consistent with impaired relaxation. Left Atrium: The left atrial chamber size is normal. Right Ventricle: The right ventricular cavity size is normal. The right ventricular global systolic function is normal. Right Atrium: The right atrial cavity size is normal. There is no patent foramen ovale visualized. There is no evidence of patent foramen ovale shunting. A patent foramen ovale is not demonstrated with color Doppler and agitated contrast. Aortic Valve: The aortic valve is trileaflet. There is mild thickening of the non coronary cusp. There is evidence of aortic sclerosis without stenosis. There is no evidence of aortic regurgitation. There is no evidence of aortic stenosis. Mitral Valve: The mitral valve leaflets are mildly thickened. There is a trace of mitral regurgitation. There is no evidence of mitral stenosis. Tricuspid Valve: The tricuspid valve leaflets are normal. There is trace to mild tricuspid regurgitation. There is evidence of mild pulmonary hypertension. There is no tricuspid stenosis. Pulmonic Valve: The pulmonic valve appears normal. There is mild pulmonic regurgitation. There is no pulmonic stenosis. Pericardium: The pericardium appears normal. Aorta: There is no dilatation of the ascending aorta. The aortic arch is not well visualized. There is no dilation of the aortic root. Pulmonary Artery: The main pulmonary artery appears normal. Venous: The venous system is not well visualized. Contrast: Normal saline was used as contrast for the bubble study. Intravenous contrast was used to help determine presence of intracardiac shunting. Conclusions The estimated ejection fraction is 55-60%. A patent foramen ovale is not demonstrated with color Doppler and agitated contrast. There is evidence of aortic sclerosis without stenosis. There is a trace of mitral regurgitation. There is trace to mild tricuspid regurgitation. There is evidence of mild pulmonary hypertension. Similar to 01/2012. Measurements Name Value Normal Range RVIDd (AP) 2D 2.5 cm (0.9 - 2.6) RVDdMajor (2D) 2.7 cm (2.2 - 4.4) RAd ISD 4CH 4.5 cm (3.4 - 4.9) RA (A4C)W 2.5 cm (2.9 - 4.6) IVSd (2D) 0.9 cm (0.6 - 1) LVPWd (2D) 1.1 cm (0.6 - 1) LVIDd (2D) 3.7 cm (3.6 - 5.4) LVIDs (2D) 1.8 cm - LV FS (2D) 50 % (25 - 45) Aortic Annulus 2.1 cm (1.4 - 2.6) Ao root diameter (2D) 3.5 cm (2.1 - 3.5) Ascending Ao 2.9 cm (2.1 - 3.4) LA dimension (AP) 2D 3.5 cm (2.3 - 3.8) LAd ISD 4CH 4.8 cm (2.9 - 5.3) LA ISD 4CH W 2.8 cm (2.5 - 4.5) Name Value Normal Range LA ESV SP 4CH (A/L) 25 ml - LA ESV SP 2CH (A/L) 31 ml - LA ESV BP (A/L) 27 ml - LA ESV BP (A/L) index 16.29 ml/m2 - LA ESV SP 4CH (MOD) 22 ml - LA ESV SP 2CH (MOD) 28 ml - Name Value Normal Range MV E-wave Vmax 0.7 m/sec - MV deceleration time 202 msec - MV A-wave Vmax 0.9 m/sec - MV E:A ratio 0.78 ratio - LV septal e' Vmax 0.07 m/sec - LV lateral e' Vmax 0.07 m/sec - LV E:e' septal ratio 10 ratio - LV E:e' lateral ratio 10 ratio - Name Value Normal Range AV Vmax 1 m/sec - AV VTI 20.7 cm - AV peak gradient 4.06 mmHg - AV mean gradient 1.97 mmHg - LVOT Vmax 0.8 m/sec - LVOT VTI 18.3 cm - LVOT peak gradient 2.8 mmHg - LVOT mean gradient 1.54 mmHg - Name Value Normal Range TR Vmax 2.8 m/sec - TR peak gradient 32 mmHg - RAP 8 mmHg - RVSP 40 mmHg - Name Value Normal Range PV Vmax 0.7 m/sec - PV peak gradient 1.72 mmHg -
--- NOTE | 2018-10-19 15:29 | PN ---
Subjective Date of Service: 10/19/18 Interval History: Pt seen and examined. Meds and labs reviewed. CC: N/A ROS: Denied STOREY/dizziness, F/C, N/V, CP, SOB, increased cough, sputum production , abd pain, diarrhea, constipation, dysuria, myalgias, arthralgias, throat pain , and new skin lesions. The rest of the 14 point ROS are unremarkable. PHYSICAL EXAM: GEN APPEARANCE: Awake, not in acute distress HEENT: NC/AT, PERRLA, moist oral mucosa, (-) throat erythema NECK: Soft, supple, (-) cervical LAD, (-)JVD HEART: S1S2 WNL, RRR, No MRG CHEST: CTA, BL, GAE, No W/R/R ABD: Soft, ND/NT, NABS 4x Q EXT: No C/C/E SKIN: Warm to touch PSYCH: No active psychosis, hallucinations, depression, SI/HI Objective Active Medications: Acetaminophen (Tylenol Tab*) 650 mg PO Q4H PRN PRN Reason: FEVER/PAIN Al Hydrox/Mg Hydrox/Simethicone (Maalox Plus*) 30 ml PO Q6H PRN PRN Reason: INDIGESTION Aspirin (Aspirin Ec Tab*) 81 mg PO DAILY [facility] Atorvastatin Calcium (Lipitor*) 40 mg PO 2100 [facility] Heparin Sodium (Porcine) (Heparin Vial(*)) 5,000 units SUBCUT Q12H [facility] Metoprolol Succinate (Toprol Xl Tab*) 100 mg PO DAILY [facility] Last Admin: 10/19/18 08:27 Dose: 100 mg Omeprazole (Prilosec Cap*) 40 mg PO BID [facility] Ondansetron HCl (Zofran Inj*) 4 mg IV Q4H PRN PRN Reason: NAUSEA/VOMITING Tramadol HCl (Ultram*) 50 mg PO BID PRN PRN Reason: PAIN Vital Signs - 8 hr 10/19/18 10/19/18 10/19/18 08:00 08:46 08:47 Temperature 97.9 F Pulse Rate 65 Respiratory 16 Rate Blood Pressure 145/69 (mmHg) O2 Sat by Pulse 94 Oximetry 10/19/18 11:22 Temperature 97.4 F Pulse Rate 69 Respiratory 16 Rate Blood Pressure 134/75 (mmHg) O2 Sat by Pulse 95 Oximetry Oxygen Devices in Use Now: None Result Diagrams: 10/19/18 05:36 10/19/18 05:36 Assess/Plan/Problems-Billing Assessment: - Patient Problems (1) Change in mental status Current Visit: Yes Status: Acute Code(s): R41.82 - ALTERED MENTAL STATUS, UNSPECIFIED SNOMED Code(s): 092781757 Comment: -Likely due to TIA -2D echo: No PFO; EF 55-60%; mild pulm HTN -H&N CTA: 25% stenosis of prox. R. ICA; no sig stenosis on L.; Moderate to severe stenosis in the origins of BL external carotid arteries -Will obtain orthostatic VS -Continue ASA and statins -Will await any further input from Dr. Bowman -Will continue to monitor for any arrythmias on tele o/n (2) JESSIE (acute kidney injury) Current Visit: Yes Status: Acute Code(s): N17.9 - ACUTE KIDNEY FAILURE, UNSPECIFIED SNOMED Code(s): 38897311 Comment: -I believe he is at baseline renal function when compared to as far back as 2014 -Will continue watchful waiting (3) GERD (gastroesophageal reflux disease) Current Visit: Yes Status: Acute Code(s): K21.9 - GASTRO-ESOPHAGEAL REFLUX DISEASE WITHOUT ESOPHAGITIS SNOMED Code(s): 597931210 Comment: -Will D/C Famotidine and increase po bid PPI as ordered (4) DVT prophylaxis Current Visit: No Status: Acute Code(s): DYB1288 - SNOMED Code(s): 245675638 Comment: -Changed frequency of Heparin SQ to q12H Status and Disposition: -Possible D/C in AM
[2018-10-19 17:13] LABS: Urine Creatinine Concentration 108.96 mg/dL
--- NOTE | 2018-10-19 19:03 | CONS ---
CC: Dr. Kaveh Finley * NEUROLOGY CONSULTATION: DATE OF CONSULT: 10/19/18 LOCATION: He is an inpatient in room 436. REFERRING PROVIDER: Goldie Sotelo MD CHIEF COMPLAINT: Episode of difficulty speaking. HISTORY OF PRESENT ILLNESS: Rick Rangel is a 77-year-old man, known to me from prior evaluations as an outpatient. He was just discharged from the hospital on 10/16/18 after being admitted and treated for pancreatitis. He was home with his yesterday in the kitchen. She asked him to clean a Crock- Pot which was in the sink. He stood at the sink and said something to the effect of "what am I supposed to be doing." He repeated himself apparently a couple of times and seemed to get somewhat agitated. His had him sit down and asked him some other questions and he produced nonsensical answers. She asked him his month and he replied with the wrong month as well as the word "dinner." He seemed aware of his problems and seemed quite frustrated. She tested some of his neurological exam as she is a nurse. He had difficulty understanding commands, but seemed to have normal motor function, normal eye movements, and was able to walk although seemed very hesitant and cautious. She decided to drive him to the emergency room. He continued to have difficulty responding and producing appropriate responses, but all the responses that he gave were clear words. He was not dysarthric. He was fairly quiet as she talked to him on the ride to the emergency room and tended to not ask questions and responded very sluggishly. By the time he got to the emergency room which was about a 45-minute ride altogether, he was back to normal. She indicates that he seemed amnestic for some of the episode in the emergency room, but today he says he remembers it all. She is not sure if it has been because she has been repeating the story to various examiners. She is quite clear that she does not think he was ever unaware of his surroundings or unresponsive entirely. He feels fine today. Yesterday, he had a bad headache that he complained of as he was riding from their house. He typically gets a headache in the afternoons of moderate intensity. He has a mild headache today. PAST MEDICAL HISTORY: Notable for pancreatitis, for which he was recently hospitalized. He has gastric ulcers, for which he was taken off aspirin. He had been on Plavix for years in the past. He has peripheral vascular disease and hypertension. He has coronary artery disease and has had stenting; chronic back pain; obstructive sleep apnea, on CPAP; hyperlipidemia; cataract extractions. PAST SURGICAL HISTORY: Notable for femoral-popliteal bypass, thrombectomy and stent placement in the same distribution, hemicolectomy in 1998. MEDICATIONS: At home consist of: 1. Ranitidine 150 mg p.o. daily. 2. Protonix 40 mg p.o. b.i.d. 3. Losartan 100 mg p.o. daily. 4. Norvasc 5 mg p.o. daily. 5. Atorvastatin 40 mg p.o. daily. 6. He was taking tramadol for back pain, but has not taken it for over a week. ALLERGIES: He is allergic to CODEINE, SOMA, OXYCODONE. SOCIAL HISTORY: He quit smoking in 2011. REVIEW OF SYSTEMS: Negative for heartburn currently, just some hiccups since he ate. Denies problems with vision. He has a mild bifrontal headache currently. No recent falls. There was no numbness on his face or extremities during the episode yesterday. PHYSICAL EXAM: On examination, he is well nourished and well hydrated. Temperature 97.4, blood pressure most recently 134/75, heart rate in the 60s and regular. Respiratory rate is 16 and oxygen saturation is 95% on room air. Heart is in a regular rhythm without murmurs. There are no cervical bruits. Oral mucosa is moist and atraumatic. Neurological Exam: Pupils react equally from 3 to 2 mm. Eye movements are normal. Visual mcleod are full to confrontation. Funduscopic exam is normal bilaterally. Facial musculature is symmetric. Facial sensation to light touch and pin is symmetric. Palate and tongue appear normal, there is no dysarthria. Motor exam reveals normal strength proximally and distally in upper extremities and lower extremities. There is no rest tremor. Kjmfbv-si-yiio maneuver is normal bilaterally. Afnj-py-gewz maneuver is normal bilaterally. Sensory exam in the extremities is intact to light touch and pin symmetrically. Reflexes are trace in the upper extremities and at the knees. Plantar responses are flexor bilaterally. I did not ambulate him. He is alert and oriented and able to provide good history. He seems to have a pretty good recollection of the details of yesterday. Language is fluent. DIAGNOSTIC STUDIES/LAB DATA: Includes an unremarkable chemistry profile other than stable elevated creatinine of 1.53. Lactic acid was normal when he came in at 0.8. Liver enzymes are normal. Cholesterol this morning is 102, LDL 47. Urinalysis from yesterday is unremarkable with 1+ protein and 1+ blood. MRI of the brain was reviewed and reveals mild amount of chronic ischemic changes, but no evidence of an acute ischemic event. Transthoracic echocardiogram revealed aortic sclerosis without stenosis and is otherwise unremarkable. CT angiogram of the neck and brain revealed some right carotid atherosclerosis at the bifurcation, but no significant stenosis and no intracranial stenosis. IMPRESSION AND PLAN: Impression is that of a probable transient ischemic attack. He does not have any evidence of large vessel disease or cardioembolic source. Another possibility would be a focal seizure. He has been given aspirin 325 mg per day. I spoke briefly with Dr. Finley to ask which he thought was the safest between Plavix and aspirin and we decided on low dose aspirin. I have put in an order for an EEG. I will follow him up as an outpatient if nothing else develops while he is here in the hospital. [id number]/[facility] #: [id number] BIRD
[2018-10-19] MEDS ORDERED: Atorvastatin* 40 MG TAB PO SCH (21:00)
[2018-10-19] MEDS: Omeprazole CAP* 20 MG PO SCH (22:09)
[2018-10-20] MEDS: Heparin VIAL(*) 5000 UNITS/ML VIAL (FIVE THOUSAND) SUBCUT SCH (05:39)
[2018-10-20 06:17] LABS: ABS Basophils 0 10^3/ul (0-0.2); ABS Eosinophils 0.1 10^3/ul (0-0.6); ABS Lymphocytes 1.4 10^3/ul (1.0-4.8); ABS Monocytes 0.6 10^3/ul (0-0.8); ABS Neutrophils 2.9 10^3/ul (1.5-7.7); ABS Nucleated RBC 0 10^3/ul; Eosinophil % 1.4 %; Hematocrit 32 % (42-52); Hemoglobin 10.9 g/dl (14.0-18.0); Lymphocyte % 27.6 %; Mean Corpuscular HGB Conc 35 g/dl (31-36); Mean Corpuscular Hemoglobin 34 pg (27-31); Mean Corpuscular Volume 99 fL (80-94); Mean Platelet Volume 8.3 fL (7.4-10.4); Nucleated Red Blood Cells % 0.1; Platelet Count 145 10^3/ul (150-450); Red Blood Count 3.19 10^6/ul (4.00-5.40); Red Cell Distribution Width 14 % (10.5-15)
[2018-10-20 06:38] LABS: Albumin 3.4 g/dL (3.2-5.2); Albumin/Globulin Ratio 1.2 (1-3); BUN/Creatinine Ratio 18.9 (8-20); Calcium 9.2 mg/dL (8.6-10.3); EGFR Non-African American 42.4 (>60); Globulin 2.9 g/dL (2-4); Magnesium 1.7 mg/dL (1.9-2.7); Phosphorus 3.5 mg/dL (2.5-5.0); Potassium 4.3 mmol/L (3.5-5.0); Total Bilirubin 0.3 mg/dL (0.2-1.0); Total Protein 6.3 g/dL (6.4-8.9)
[2018-10-20] MEDS ORDERED: Magnesium Sulfate IV* 3 GM in NS 0.9% 100 ML* 100 ML IVPB ONE (08:39)
[2018-10-20] MEDS ORDERED: Aspirin EC TAB* 81 MG TAB.EC PO SCH (09:00)
[2018-10-20] MEDS: Metoprolol Succinate XL TAB* 100 MG PO SCH (09:34)
[2018-10-20] MEDS: Omeprazole CAP* 20 MG PO SCH (09:35)
[2018-10-20 11:47] VITALS: BP 150/71
--- NOTE | 2018-10-20 20:45 | EEG ---
ELECTROENCEPHALOGRAPHY REPORT: DATE OF STUDY: 10/19/18 LOCATION: He is an inpatient in room 436. ADDENDUM: The EKG tracing during the electroencephalogram shows evidence of heart block. It is not clear whether this is a 2nd degree heart block or other forms of heart block. Clinical correlation is required. [id number]/[facility] #: [id number] MTDD
--- NOTE | 2018-10-20 21:37 | EEG ---
ADDENDUM NOW INCLUDED ON THIS REPORT ELECTROENCEPHALOGRAPHY: DATE OF STUDY: 10/19/18 REFERRING PHYSICIAN: Dr. Bowman. LOCATION: He is an inpatient in room 436. CLINICAL PROBLEM: Episode of aphasia. Rule out seizure disorder. MEDICATIONS: Include: 1. Tramadol. 2. Zofran. 3. Toprol. 4. Aspirin. 5. Lipitor. 6. Pepcid. REPORT: A 16-channel EEG is remarkable for a low-voltage fast pattern. There is a low-abundance alpha rhythm and the occipital derivations are about 9 cycles per second. The patient is clinically awake. Activation procedures were not attempted. There was some muscle artifact occasionally, but infrequently. There are no clinical events. There are no focal, lateralized, or epileptiform abnormalities. CLINICAL IMPRESSION: Normal awake EEG. ADDENDUM: The EKG tracing during the electroencephalogram shows evidence of heart block. It is not clear whether this is a 2nd degree heart block or other forms of heart block. Clinical correlation is required. [id number]/[facility] #: [id number]/[facility] #: [id number] [facility]
--- NOTE | 2018-10-21 02:03 | DS ---
CC: Dr. Goldie Sotelo; Dr. Ben Guerrero; Dr. Bowman; Dr. Ian Meadows DISCHARGE SUMMARY: DATE OF ADMISSION: DATE OF DISCHARGE: 10/20/18 DISCHARGE DIAGNOSES: Are as follows: 1. Change in mental status, likely secondary to transient ischemic attack. 2. Junctional escape rhythm with longest pause of 2.6 seconds, asymptomatic; likely an incidental fi nding to #1. Given his presentation, it is difficulty speaking. 3. Chronic kidney disease. 4. History of gastroesophageal reflux disease. DISCHARGE MEDICATIONS: Are as follows: 1. Aspirin 81 mg p.o. daily. 2. Atorvastatin 40 mg p.o. daily. 3. Metoprolol succinate 100 mg p.o. daily. 4. Pantoprazole 40 mg p.o. b.i.d. 5. Tramadol 50 mg p.o. q.6 p.r.n. 6. Tylenol 650 mg p.o. q.4 p.r.n. 7. Amlodipine 5 mg p.o. daily. 8. Nitroglycerin 0.4 mg sublingual. 9. Ranitidine 150 mg p.o. q.p.m. HISTORY OF PRESENT ILLNESS/HOSPITAL COURSE: The patient is a 77-year-old gentleman with a history of pancreatitis, gastric ulcers, for which he was taken off of aspirin and had been on Plavix in the past and has had previous history of peripheral vascular disease and hypertension, who was ad mitted for episodes of difficulty speaking. He mentioned that while he was at home with his in the kitchen, he was asked to clean a Crock-Pot which was in the sink, and he primarily stood at the s ink and said something to the effect,"what am I supposed to be doing." He appeared confused and had difficulty understanding commands and had difficulty responding and producing appropriate responses a nd difficulty finding words and appeared sluggish and dysarthric. He was then brought to the ED for further evaluation. He was back to his baseline mental state. He had a CTA of the head and neck, br ain MRI and brain CT, which were all unremarkable for any acute processes, nor was there any signific ant aneurysm, nor stenoses found in the CTA of the head and neck. He was also seen in consultation b y Dr. Bowman, who agreed that this is likely a TIA. Overnight, he was monitored and was subsequentl y found to have occasional junctional escape rhythms with some pauses with the longest pause being ab out 2.6 intermittently either day or night, but the patient remained asymptomatic and hemodynamically stable. I had a conversation with Dr. Graham prior to his discharge, who mentioned that this could also be an incidental finding, especially his presentation of dysarthria. Hence, we will defer with Dr. Villasenor, his doula, and follow up to further evaluate the patient within 1 to 2 weeks whethe r he would need and/or require more workup versus being of the opinion that this is just an incidenta l finding as discussed. He had been advised to follow up and/or call his PCP within 3 days post discharge. He was advised to call his doula, Dr. Villasenor, given his occasional junctional escape rhythms with symptomatic manuel ses of around 2.6 seconds to make sure he agrees that this is just an incidental finding and not caus ative of his presenting symptoms. I reiterated that I discussed this case with Dr. Graham prior to h im being discharged and that this was what was recommended by him. He was advised that if his sympto ms resume or develop new ones or feel unwell for any reason, to call his PCP first, and if his PCP ca nnot entertain him due to scheduling issues alone, to call [facility] if the issue is conside red nonemergent. He was advised to call my office regarding any questions, concerns, or further clar ifications regarding his discharge plans and/or prescriptions and to take his medications as prescrib ed. The patient also had an EEG done. Unfortunately, the official report of which is unavailable pr ior to my discharge, and upon my conversation with Dr. Bowman, he mentioned that there were no lizet rning signs of seizures. REVIEW OF SYSTEMS: The patient denied any current headaches, dizziness, fevers, chills, nausea, vomi ting, chest pain, shortness of breath, increased cough and/or sputum production, abdominal pain, diar pavithra, constipation, pain and/or increased frequency of urination, myalgias or arthralgias, throat nasir n, or new skin lesions. The rest of the 14-point review of systems is otherwise unremarkable. PHYSICAL EXAMINATION: Shows the most recent vital signs of records with blood pressure of 150/71, 97 .8 degrees Fahrenheit, 56 beats per minute heart rate, 16 per minute respiratory rate, saturating at 95% on room air. General Appearance: The patient is awake, alert, and oriented x3, not in acute dis tress. HEENT: Normocephalic, atraumatic. PERRLA. Extraocular muscles intact. Negative for icterus . Moist oral mucosa. Negative throat erythema. Neck is soft, supple with no cervical lymphadenopat hy. No JVD. Heart: S1, S2 within normal limits. Regular rate and rhythm. No murmurs, rubs, or gal lops. Chest: Clear to auscultation bilaterally. Good air entry. No wheezes, rales, or rhonchi. A bdomen is soft, nondistended, nontender. Normoactive bowel sounds x4 quadrants. Extremities: No cya nosis, clubbing, or edema. Psychiatric: No active psychosis, depression, suicidal or homicidal idea tions. Skin is warm to touch. TIME SPENT: The total time spent evaluating the patient, reviewing pertinent data, and appropriate d ocumentation is 65 minutes. [id number]/CPS #: [id number]
== END 2018-10-20 15:40 | disposition home or self-care (01) ==
LOC: ED 17:17 → MEDTELE 21:31
PROVIDERS: ADMIT Pediatrics; ATTEND Student in an Organized Health Care Education/Training Program
DX: R41.82 Altered mental status, unspecified (principal); N17.9 Acute kidney failure, unspecified; K21.9 Gastro-esophageal reflux disease without esophagitis; I10 Essential (primary) hypertension; E78.5 Hyperlipidemia, unspecified; Z87.19 Personal history of other diseases of the digestive system; M19.90 Unspecified osteoarthritis, unspecified site; M54.9 Dorsalgia, unspecified; G89.29 Other chronic pain; N40.0 Benign prostatic hyperplasia without lower urinary tract symptoms; I25.10 Atherosclerotic heart disease of native coronary artery without angina pectoris; Z95.5 Presence of coronary angioplasty implant and graft; G47.33 Obstructive sleep apnea (adult) (pediatric); Z98.49 Cataract extraction status, unspecified eye; Z79.82 Long term (current) use of aspirin
CPT/HCPCS: 36415; 70450; 70496; 70498; 70551; 71045; 80048; 80053; 80061; 81003; 81015; 82570; 83605; 83735; 84100; 84300; 84484; 85025; 87086; 93005; 93306; 95816; 96372; 96374; 99284; A9270-GY; G0378; G8978-GP-CH; G8979-GP-CH; G8980-GP-CH; J1644; J3475; Q9967

== ENCOUNTER 2021-05-23 03:39 | Inpatient (IN) ==
[2021-05-23 04:57] LABS: ALT 16 U/L (7-52); AST 18 U/L (13-39); Albumin 4.3 g/dL (3.2-5.2); Albumin/Globulin Ratio 1.5 (1-3); Alkaline Phosphatase 72 U/L (35-149); Anion Gap 9 mmol/L (2-11); Blood Urea Nitrogen 33 mg/dL (6-24); CO2 Carbon Dioxide 25 mmol/L (22-32); Calcium 9.3 mg/dL (8.6-10.3); Chloride 103 mmol/L (101-111); EGFR Non-African American 48.8 (>60); Globulin 2.9 g/dL (2-4); Glucose 115 mg/dL (70-100); Sodium 137 mmol/L (135-145); Total Protein 7.2 g/dL (6.4-8.9)
[2021-05-23 04:58] LABS: ABS Monocytes 0.9 10^3/ul (0-0.8); ABS Neutrophils 5.5 10^3/ul (1.5-7.7); Eosinophil % 0.2 %; Hematocrit 37 % (42-52); Hemoglobin 13.1 g/dL (14.0-18.0); Lymphocyte % 13.4 %; Mean Corpuscular HGB Conc 35 g/dL (31-36); Mean Corpuscular Hemoglobin 37 pg (27-31); Mean Corpuscular Volume 105 fL (80-94); Mean Platelet Volume 8.9 fL (7.4-10.4); Platelet Count 92 10^3/uL (150-450); Red Blood Count 3.57 10^6 /uL (4.18-5.48); Red Cell Distribution Width 14 % (10-15); White Blood Count 7.4 10^3/uL (3.5-10.8)
[2021-05-23 04:59] LABS: Troponin I 0.01 ng/mL (<0.03)
[2021-05-23 05:15] LABS: Lipase 9850 U/L (11.0-82.0)
[2021-05-23] MEDS ORDERED: Ondansetron 4 mg VIAL 2 MG/ML 2 ml VIAL IV PRN (05:49)
[2021-05-23] MEDS ORDERED: Polyethylene Glycol 3350 17 GM PACKET PO PRN (05:52)
[2021-05-23] MEDS ORDERED: Lactated Ringers 1000 ml BAG 1,000 ML IV SCH ×2 (06:00→11:33)
[2021-05-23] MEDS ORDERED: Lactated Ringers 1000 ml BAG 1,000 ML IV ONE (06:04)
[2021-05-23] MEDS ORDERED: HYDROcodone/ACETAMIN 5/325 mg TAB PO PRN ×2 (06:10)
[2021-05-23 06:56] LABS: Folate > 20.00 ng/mL (5.90-24.80)
[2021-05-23 06:57] LABS: Vitamin B12 525 pg/mL (180-914)
[2021-05-23 08:14] LABS: Troponin I 0.01 ng/mL (<0.03)
[2021-05-23 08:22] LABS: Rapid COVID-19 Molecular Undetected (Undetected)
[2021-05-23 10:17] LABS: HDL Cholesterol 37.2 mg/dL
[2021-05-23] MEDS: Enoxaparin 40 MG/0.4 ML SYR SUBCUT SCH (10:39)
[2021-05-23] MEDS: Aspirin EC 81 mg TAB.EC (enteric coated) PO SCH (10:40)
[2021-05-23] MEDS: Lactated Ringers 1000 ml BAG 1,000 ML IV SCH (18:21)
[2021-05-24] MEDS: Lactated Ringers 1000 ml BAG 1,000 ML IV SCH ×2 (01:13→11:23)
[2021-05-24 05:27] LABS: Hematocrit 34 % (42-52); Hemoglobin 11.6 g/dL (14.0-18.0); Mean Corpuscular HGB Conc 34 g/dL (31-36); Mean Corpuscular Hemoglobin 36 pg (27-31); Mean Corpuscular Volume 106 fL (80-94); Mean Platelet Volume 8.8 fL (7.4-10.4); Platelet Count 79 10^3/uL (150-450); Red Blood Count 3.21 10^6 /uL (4.18-5.48); Red Cell Distribution Width 15 % (10-15); White Blood Count 4.9 10^3/uL (3.5-10.8)
[2021-05-24 05:46] LABS: Calcium 8.8 mg/dL (8.6-10.3); EGFR African American 76.3 (>60); EGFR Non-African American 63.1 (>60); Potassium 4.3 mmol/L (3.5-5.0)
[2021-05-24] MEDS: Enoxaparin 40 MG/0.4 ML SYR SUBCUT SCH ×2 (06:07→08:25)
[2021-05-24] MEDS: Aspirin EC 81 mg TAB.EC (enteric coated) PO SCH (08:25)
[2021-05-24] MEDS ORDERED: Lactated Ringers 1000 ml BAG 1,000 ML IV SCH (11:30)
[2021-05-25 06:37] LABS: ABS Lymphocytes 1.2 10^3/ul (1.0-4.8); ABS Monocytes 0.8 10^3/ul (0-0.8); ABS Neutrophils 3.9 10^3/ul (1.5-7.7); Eosinophil % 0.5 %; Hematocrit 35 % (42-52); Hemoglobin 12.4 g/dL (14.0-18.0); Lymphocyte % 20.9 %; Mean Corpuscular HGB Conc 35 g/dL (31-36); Mean Corpuscular Hemoglobin 37 pg (27-31); Mean Corpuscular Volume 104 fL (80-94); Mean Platelet Volume 8.9 fL (7.4-10.4); Platelet Count 86 10^3/uL (150-450); Red Blood Count 3.36 10^6 /uL (4.18-5.48); Red Cell Distribution Width 14 % (10-15); White Blood Count 5.9 10^3/uL (3.5-10.8)
[2021-05-25 06:51] LABS: Albumin 3.8 g/dL (3.2-5.2); Albumin/Globulin Ratio 1.3 (1-3); Calcium 9.2 mg/dL (8.6-10.3); EGFR African American 62.6 (>60); EGFR Non-African American 51.7 (>60); Globulin 2.9 g/dL (2-4); Potassium 4.6 mmol/L (3.5-5.0); Total Bilirubin 0.7 mg/dL (0.2-1.0); Total Protein 6.7 g/dL (6.4-8.9)
[2021-05-25] MEDS: Aspirin EC 81 mg TAB.EC (enteric coated) PO SCH (09:10)
[2021-05-25] MEDS: Enoxaparin 40 MG/0.4 ML SYR SUBCUT SCH (09:10)
[2021-05-25 11:25] VITALS: BP 129/61
== END 2021-05-25 14:30 | disposition home or self-care (01) | DRG 440 ==
LOC: ED 03:39 → SSU 03:56
PROVIDERS: ADMIT Student in an Organized Health Care Education/Training Program; ATTEND Internal Medicine